=== PATIENT | male | born 1970 | race African-American/Black ===

== ENCOUNTER 2016-10-08 15:49 | Observation (INO) | payer MEDICARE, OTHER ==
--- NOTE | ~2016-10-08 | DS ---
Discharge Summary [facility] [address] [place]. [address] NAME: MARLENE ZAMORA : 74 STATUS : DIS Nathanael PAT#: [id number] AGE: 45 ADM/REG DATE : 10/08/16 MR#: [id number] REPORT SERV DATE: 10/10/16 DICTATED BY: DATE: REPORT STATUS : Draft TRANSCRIBED BY: MODL DATE: 10/09/16 ADMISSION DATE: 10/08/2016 DISCHARGE DATE: 10/09/2016 DISCHARGE DIAGNOSES: 1. Bleeding from needle site, nearest to elbow, dialysis during access appears to be resolved. 2. End-stage renal disease, hemodialysis Thursday, Thursday, Thursday. 3. Anemia. 4. Hypertension. 5. Obstructive sleep apnea. 6. Cardiomyopathy. CONSULT DURING INPATIENT EVALUATION: None. PROCEDURES PERFORMED: Hemodialysis this morning on 10/09/2016 for a 3-hour treatment via a 2K bath. DISCHARGE MEDICATIONS FOLLOWS: ASA 81 mg daily, calcium carbonate 2000 mg p.o. at bedtime. No other medications are listed. CONDITION AT DISCHARGE: Stable. DISPOSITION: Patient will be discharged and returned home with instructions to return to his usual hemodialysis treatment tomorrow morning at his usual clinic and time. Medications will be continued as listed above. HOSPITAL COURSE: This is a 45-year-old, male patient, who dialyzes on a Thursday, Thursday, Thursday schedule who was apparently at dialysis yesterday and experienced some bleeding during treatment rather from his access area with the needle closest to his elbow. According to reports from the patient, he was dialyzed for short amount of time and reported here for evaluation at [facility]. He was evaluated visually and declined after he was noted to be stable to exit, and preferred to stay overnight for monitoring. He has stayed over the last 12 hours and has had no further bleeding, complaints of no other comorbid symptomatology and shows no evidence of bleeding or acute blood loss with a stable hemoglobin this morning. He is agreeable through discussion this morning to dialyze for 3 hours and then be discharged home. Instructions will be to continue his previous home medications as written above and to return to his hemodialysis unit tomorrow for further monitoring. Caveat to this discharge would include that he remains stable during the duration of his dialysis treatment, which is now being initiated. GOLDIE [facility] Discharge Summary [place] [id number] [address] NAME: MARLENE ZAMORA : 74 STATUS : DIS Nathanael PAT#: [id number] AGE: 45 ADM/REG DATE : 10/08/16 MR#: [id number] REPORT SERV DATE: 10/10/16 DICTATED BY: DATE: REPORT STATUS : Draft TRANSCRIBED BY: MODL DATE: 10/09/16 SUSHMA Alcantara / [id number] CC: Mani Zhang M.D.
--- NOTE | ~2016-10-08 | CN ---
Consultation Report [facility] [address] [place]. [address] NAME: MARLENE ZAMORA : 74 STATUS : DIS Nathanael PAT#: [id number] AGE: 45 ADM/REG DATE : 10/08/16 MR#: [id number] REPORT SERV DATE: 10/12/16 DICTATED BY: JOHN PAUL MENDOZA DATE: 10/12/16 REPORT STATUS : Draft TRANSCRIBED BY: MODL DATE: 10/12/16 CONSULT DATE OF CONSULTATION: 10/12/2016 CHIEF COMPLAINT: He originally came to the hospital for shortness of breath and left knee pain. HISTORY OF PRESENT ILLNESS: Chronic dialysis with trouble from his AV fistula, admitted to the ICU for shortness of breath, and knee pain. I was subsequently consulted for evaluation and possible aspiration to identify because of his knee pain. PAST MEDICAL HISTORY: End-stage renal disease, hypertension, obstructive sleep apnea, hypothyroidism, AV fistula with revision to the left upper extremity, chronic left bundle branch block, cardiomyopathy, left heart catheterization in 2016, anemia of chronic disease, hypocalcemia, hyperparathyroidism, status post parathyroidectomy, and GERD. ALLERGIES: HYDROCHLOROTHIAZIDE, LISINOPRIL, ATIVAN, AND DILAUDID. HOME MEDICATIONS: Aspirin, Tums, metoprolol, diltiazem, and thyroid replacement. PAST SURGICAL HISTORY: Includes the above with his AV fistula and his parathyroidectomy. PHYSICAL EXAMINATION: GENERAL: As I see him in his ICU bed that too at approximately 11 o'clock on Thursday07/12/2017, he is AAO x3. Pleasant and cooperative with exam. Complaining of left knee pain. HEENT: [place] sclerae. Equal pupils. Facial symmetry. LUNGS: Diminished breath sounds. HEART: Tachycardic. Irregularly irregular. ABDOMEN: Tympanic, nontender. EXTREMITIES: Chronic venous stasis with 1+ pitting edema bilateral lower extremity to the level of the proximal calf. Positive effusion with ballotable patella on the left knee. Painful range of motion from 20 to 60 degrees on the left side. Normal range of motion from 0 to 100 on the right side. No pain or laxity to varus valgus stress about the knee. No crepitus. Weakly palpable distal pulses. Bilateral upper extremities showed AV fistula but otherwise no skin breaks. Good active and passive range of motion. IMAGING: Radiographs reveal no fractures. ASSESSMENT: This is a 45-year-old with concern of septic left knee. Therefore we will perform an aspiration. Risks and benefits were discussed at length with the patient. He verbalized understanding and agrees. Consultation Report [place] [id number] [place]. [address] NAME: MARLENE ZAMORA : 74 STATUS : DIS Nathanael PAT#: [id number] AGE: 45 ADM/REG DATE : 10/08/16 MR#: [id number] REPORT SERV DATE: 10/12/16 DICTATED BY: JOHN PAUL MENDOZA DATE: 10/12/16 REPORT STATUS : Draft TRANSCRIBED BY: MODAnt DATE: 10/12/16 JUAN/MONA John Paul Mendoza M.D. / [id number] CC: Mani Zhang M.D.
--- NOTE | ~2016-10-08 | HP ---
History And Physical [place] [id number] [facility] [place]. [address] NAME: MARLENE CLAY : 74 STATUS : DIS Nathanael PAT#: [id number] AGE: 45 ADM/REG DATE : 10/08/16 MR#: [id number] REPORT SERV DATE: 10/11/16 DICTATED BY: JOYCE LAMBERT JR DATE: 10/11/16 REPORT STATUS : Draft TRANSCRIBED BY: MONA DATE: 10/11/16 DATE OF ADMISSION: 10/08/2016 CHIEF COMPLAINT: Shortness of breath and knee pain. HISTORY: Mr. Clay was dismissed from this facility on after having difficulty with bleeding from his AV fistula. He went to his usual dialysis session yesterday and apparently had an uneventful dialysis session, terminating about 4 o'clock in the afternoon. About 9 p.m. yesterday, he developed abrupt onset of shortness of breath which he dealt with over the evening hours. He has bilateral knee arthropathy with severe pain, the pain and the dyspnea were persistent this morning, so he came to the emergency room. 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 Jennings. In the emergency department, he has been treated initially with some amiodarone, subsequently with a diltiazem drip, his heart rate is currently in the 120s and he measures with a systolic hypotension. He has edema of the lower extremities. He has abnormal chest x-ray with bilateral fluffy looking infiltrates. He has no fever or leukocytosis. He has been seen by Dr. Wang, who is concerned that he needs to be evaluated for pulmonary embolism. He will shortly be taken for CTA, and then we will attempt dialysis thereafter for removal of "dye" and to see if we can achieve any ultrafiltration and improve his pulmonary performance. PAST MEDICAL HISTORY: 1. ESRD. 2. Hypertension. 3. Obstructive sleep apnea. 4. Hypothyroidism. 5. AV fistula with revisions left upper extremity. 6. Chronic left bundle-branch block. 7. Cardiomyopathy, not otherwise specified. 8. Left heart catheterization in July 2016. 9. Anemia of chronic kidney disease. 10.Hypocalcemia. 11.History of hyperparathyroidism, status post parathyroidectomy, not otherwise specified. 12.Peptic ulcer disease. ALLERGIES: STATED TO HYDROCHLOROTHIAZIDE, LISINOPRIL, ATIVAN, DILAUDID. STATED TO BEE STINGS AND RESENDEZ FISH. HOME MEDICATIONS: Identified as aspirin, Tums, metoprolol, diltiazem, and thyroid replacement. REVIEW OF SYSTEMS: History And Physical [address] [address] NAME: MARLENE CLAY : 74 STATUS : DIS Nathanael PAT#: [id number] AGE: 45 ADM/REG DATE : 10/08/16 MR#: [id number] REPORT SERV DATE: 10/11/16 DICTATED BY: JOYCE LAMBERT JR DATE: 10/11/16 REPORT STATUS : Draft TRANSCRIBED BY: MONA DATE: 10/11/16 Acknowledges shortness of breath, subjective palpitations, bilateral knee arthropathic pain, but otherwise no reported head, neck, other cardiac, GI, , musculoskeletal, neurological, or integumentary complaints. Knee pain is chronic with acute exacerbation. PHYSICAL EXAMINATION: GENERAL: Obese, awake, alert, male, who appears dyspneic. HEENT: Cranium is normocephalic. [place] sclerae. Equal pupils. No nasal discharge. Facial symmetry. No JVD. No carotid bruit. Trachea midline. LUNGS: Diminished breath sounds. Increased right basilar adventitial sounds. No accessory muscle use. HEART: Irregularly irregular and tachycardic, without audible rub, murmur, or gallop. PMI not palpably displaced. ABDOMEN: Tympanitic, nontender. EXTREMITIES: Chronic venous stasis with edema 1+, bilaterally enlarged knees, ? effusion. Tender to palpation. NEUROLOGICAL: Cognition and speech are normal. Memory is sluggishly impaired. Gait is not tested. Strength not observed. Sodium today is 132, potassium 4.6, chloride 96, CO2 23, BUN 47, creatinine 9.7, calcium 7.7. Magnesium 1.7. Phosphorus 5.0 two days ago. WBC is 7000; hemoglobin is 12, comparable to prior values; platelets 91,000, comparable to values dating back to July 2016. Chest x-ray, somewhat enlarged cardiac silhouette, bilateral symmetrical interstitial infiltrates. ASSESSMENT: 1. Atrial fibrillation, as reported, with rapid response, initial heart rate slowed to current values of about 120. 2. Associated hypotension. 3. Associated dyspnea. 4. Knee pain. 5. End-stage renal disease. PLAN: 1. Cardiology consult. Rate control. Evaluate for CTA for pulmonary embolus. 2. Dialysis with ultrafiltration. DF/MODL Joyce Lambert Jr, M.D. / [id number] CC: Mani Zhang M.D.
--- NOTE | ~2016-10-08 | HP ---
History And Physical [place] [id number] [facility] [place]. [address] NAME: MARLENE ZAMORA : 74 STATUS : ADM Nathanael PAT#: [id number] AGE: 45 ADM/REG DATE : 10/08/16 MR#: [id number] REPORT SERV DATE: 10/09/16 DICTATED BY: MANI ZHANG DATE: 10/08/16 REPORT STATUS : Draft TRANSCRIBED BY: MODAnt DATE: 10/08/16 DATE OF ADMISSION: 10/08/2016 CHIEF COMPLAINT: Bleeding from left upper AV shunt. HISTORY OF PRESENT ILLNESS: The patient is a 45-year-old male with significant past medical history of ESRD, hypertension, CLIFF, hypothyroidism, presents from his hemodialysis status post bleeding from his left upper AV graft within one hour of hemodialysis. The patient states that he bled from the needle placed lower closer to his elbow. He denies any prior events of bleeding. He is not having any bright red blood per rectum or epistaxis. He is on aspirin, but no other medications such as Plavix or Coumadin. PAST MEDICAL HISTORY/PAST SURGICAL HISTORY: 1. End-stage renal disease, [address], secondary to FSGS. 2. Left upper AV fistula with revision by Dr. Hewitt. 3. Hypertension. 4. Left bundle branch block. 5. Cardiomyopathy. 6. CLIFF. 7. Left heart catheterization in 07/2016. 8. Anemia. 9. Hypothyroidism. 10.Hypocalcemia status post parathyroidectomy. 11.Peptic ulcer disease. SOCIAL HISTORY: No recreational drugs or alcohol at this time. FAMILY MEDICAL HISTORY: No known kidney disease. ALLERGIES: ALLERGIES INCLUDE HYDROCHLOROTHIAZIDE, LISINOPRIL, ATIVAN, AND DILAUDID. HE ALSO HAS ALLERGIES TO BEE STINGS AND RESENDEZ FISH. HOME MEDICATIONS: 1. Aspirin 81 mg daily. 2. Tums 1000 mg p.o. p.r.n. before meals. 3. Tums 2000 mg p.o. q.h.s. 4. Metoprolol 25 mg daily p.r.n. for diastolic blood pressure greater than 100. REVIEW OF SYSTEMS: Complete review of systems negative, otherwise stated in HPI. PHYSICAL EXAMINATION: VITAL SIGNS: Temperature is 97.0, pulse is 98, blood pressure is 154/87, pulse is 105. GENERAL: He is in no apparent distress. Sitting up, watching TV. NEURO: He is alert and oriented x3. Moves all four extremities. PSYCH: Appropriate mood and affect. History And Physical [address] [address] NAME: MARLENE ZAMORA : 74 STATUS : ADM Nathanael PAT#: [id number] AGE: 45 ADM/REG DATE : 10/08/16 MR#: [id number] REPORT SERV DATE: 10/09/16 DICTATED BY: MANI ZHANG DATE: 10/08/16 REPORT STATUS : Draft TRANSCRIBED BY: MONA DATE: 10/08/16 HEENT: Normocephalic. No scleral icterus. NECK: No JVD. Trachea midline. CARDIOVASCULAR: Regular rate and rhythm. No gallops, rubs, or murmurs. RESPIRATORY: Clear to auscultation bilaterally without increased respiratory rate. ABDOMEN: Soft, nontender, and nondistended. Positive bowel sounds. EXTREMITIES: No peripheral edema. ACCESS: Left upper AV shunt/graft. Good thrill and bruit over the medial left upper arm. No pseudoaneurysm or signs of infection appreciated. No active bleeding. No significant swelling. LABORATORY DATA: Sodium is 138, potassium is 4.2, chloride is 97, bicarb is 26, BUN is 55, creatinine is 10.6, glucose is 87, and calcium is 7.8. White blood cell count is 3.8, hemoglobin is 12.3, and platelets of 121. ASSESSMENT: 1. Bleeding from left upper AV fistula one hour into hemodialysis. The patient does take a daily aspirin. 2. Obstructive sleep apnea. 3. Hypertension. 4. End stage renal disease with past work on his access by Dr. Hewitt. PLAN: 1. Home and p.r.n. medications. We will monitor access for recurrent bleeding. 2. He will dialyze first thing in the morning. If no further issues he will be discharged after hemodialysis; otherwise, Dr. Hewitt will be consulted for further evaluation such as fistulogram and evaluation of his access. SGG/MODL Mani Zhang M.D. / [id number] CC: Mani Zhang M.D.
[2016-10-08 15:44] LABS: BASOPHILS 0.6 %; BASOPHILS ABSOLUTE 0.02 10/3/uL (0.0-0.16); EOSINOPHILS 4.2 %; EOSINOPHILS ABSOLUTE 0.15 10/3/uL (0.0-0.53); ER CBC TAT 0 Hrs 08 Mins; HEMATOCRIT 40.8 % (40.0-51.0); HEMOGLOBIN 12.3 g/dL (13.6-17.8); IMMATURE GRANULOCYTES 0.3 %; IMMATURE GRANULOCYTES ABSOLUTE 0.01 10/3/uL (0.0-0.11); LYMPHOCYTES 23.3 %; LYMPHOCYTES ABSOLUTE 0.84 10/3/uL (0.67-4.30); MEAN CORPUS HGB CONC 30.1 g/dL (32.0-36.0); MEAN CORPUSCULAR HEMOGLOB 26.3 pg (26.0-34.0); MEAN CORPUSCULAR VOLUME 87.2 fL (80-100); MONOCYTES 28.5 %; MONOCYTES ABSOLUTE 1.03 10/3/uL (0.21-1.20); NEUTROPHILS 43.1 %; NEUTROPHILS ABSOLUTE 1.56 10/3/uL (2.02-8.40); RBC DISTRIBUTION WIDTH 17.4 % (12.0-16.0); RED CELL COUNT 4.68 10/6/uL (4.7-6.1); WHITE BLOOD CELLS 3.6 10/3/uL (4.5-10.5)
[2016-10-08 15:47] LABS: MANUAL DIFF NO %; PLATELET COUNT 121 10/3/uL (150-400)
[~2016-10-08 15:49] MED LIST: *DENIES; *UNABLE1; ALBUTEROL5 INH; AMB5 PO; ASAB PO; ASAEC PO; CAT1 PO; CAT2 PO; CEFT2 PO; CIP5 PO; CLONIDINE; CLONIDINE PO; COREG25 PO; COREG3 PO; COREG6 PO; COZ25 PO; COZ50 PO; D.O.S.100 MG PO; DSS PO; FOSRENOL1000 MG PO; HALF81 PO; HEPARIN INJ5000 U/ML SC; IMDUR30 PO; L80 PO; LEVOTHYROXIN25 MCG PO; LIPITOR40 PO; LISINOPRIL; LISINOPRIL PO; LISINOPRIL40 MG PO; LOP100 PO; LOP25 PO; LYRICA75 PO; MIRALAXPKT PO; MOMUD PO; NASAL SPRAY OTC NAS; NORCO1 TA1 PO; NORCO1 TAB PO; NORV5 PO; NOVOLOG SC; OCEAN NAS; OXYIR5 MG PO; P20 PO; PCET PO; PERCOCET1 TA2 PO; PERCOCET1 TA4 PO; PHOSLO PO; PLAVIX PO; PROAIR HFA INH; PROAIR HFA PO; PROTONIX PO; RENA-VITE PO; RENAGEL800 PO; ROCALTROL 0.0.25 MCG PO; ROCALTROL0.5 MCG PO; SENSIPAR60 MG PO; SILVADENE1 % TOP; SYN.025B PO; T PO; TAPAZOLE10 MG PO; TAPAZOLE5 MG PO; TUMSROLL PO; TYLENOL 8 HR650 MG PO; ULTRAM50 PO; ZOFRAN4 PO; [UNRECOGNIZED DRUG - OTHER]
[2016-10-08 15:59] LABS: A/G RATIO 0.7 (0.7-1.9); ALBUMIN 3.4 G/DL (3.5-5.0); ALKALINE PHOSPHATASE 169 U/L (45-117); BUN (BLOOD UREA NITROGEN) 55 MG/DL (6-23); CALCIUM, SERUM 7.8 MG/DL (8.5-10.4); CHLORIDE, SERUM 97 MMOL/L (96-112); CO2 (CARBON DIOXIDE) 26 MMOL/L (24-34); GFR AFRICAN AMERICAN 6 ML/MIN (>=60); GFR NON AFRICAN AMERICAN 5 ML/MIN (>=60); GLOBULIN 5.2 G/DL (2.5-4.1); GLUCOSE, SERUM 87 MG/DL (60-99); POTASSIUM, SERUM 4.2 MMOL/L (3.5-5.3); SGOT(AST) 35 U/L (5-40); SGPT(ALT) 29 U/L (5-65); SODIUM, SERUM 138 MMOL/L (135-148); TOTAL BILIRUBIN 0.6 MG/DL (0-1.2); TOTAL PROTEIN 8.6 G/DL (6.0-8.5)
[2016-10-08 16:02] LABS: BE (BASE EXCESS) -2.9 MEQ/L (0 +/- 2.5); CARBOXYHEMOGLOBIN 2.3 % (0-3); HCO3 (ACTUAL BICARBONATE) 23.6 MEQ/L (23-27); HEMOBLOGIN CONTENT 12.6 G/DL (14-18); INSTRUMENT SERIAL # 8087; METHEMOGLOBIN 0.1 % (0-3); O2 CONTENT 16.4 VOL% (18-24); OPERATOR ID 14335; PCO2 (CO2 TENSION) 48 MMHG (35-45); PO2 (O2 TENSION) 80 MMHG (79-93); SAMPLE Arterial; pH 7.31 (7.37-7.43)
[2016-10-08 16:03] LABS: ALLENS TEST Pos
[2016-10-08 16:47] LABS: ANISOCYTOSIS 1+ (5-10/OIF) (0-5/OIF); BAND NEUTROPHILS 1 %; BASOPHILS 2 %; BASOPHILS ABSOLUTE (CALC) 0.07 10/3/uL (0.0-0.16); EOSINOPHILS 4 %; EOSINOPHILS ABSOLUTE (CALC) 0.14 10/3/uL (0.0-0.53); ER DIFF TAT 1 Hrs 11 Mins; LYMPHOCYTES 37 %; LYMPHOCYTES ABSOLUTE (CALC) 1.33 10/3/uL (0.67-4.30); MONOCYTES 10 %; MONOCYTES ABSOLUTE (CALC) 0.36 10/3/uL (0.21-1.20); NEUTROPHILS ABSOLUTE (CALC) 1.69 10/3/uL (2.02-8.40); SEGMENTED NEUTROPHIL (0) 46 %; TOTAL NUCLEATED CELLS 100
[2016-10-08 16:48] LABS: PLATELET ESTIMATE SLT DEC (ADEQUATE)
[2016-10-08] MEDS ORDERED: ASAB PO (17:51)
[2016-10-08] MEDS ORDERED: TUMSROLL PO (17:52)
[2016-10-09 04:31] LABS: ALBUMIN 3.3 G/DL (3.5-5.0); BUN (BLOOD UREA NITROGEN) 63 MG/DL (6-23); CALCIUM, SERUM 7.4 MG/DL (8.5-10.4); CHLORIDE, SERUM 98 MMOL/L (96-112); CO2 (CARBON DIOXIDE) 24 MMOL/L (24-34); GFR AFRICAN AMERICAN 5 ML/MIN (>=60); GFR NON AFRICAN AMERICAN 5 ML/MIN (>=60); GLUCOSE, SERUM 99 MG/DL (60-99); POTASSIUM, SERUM 5.1 MMOL/L (3.5-5.3); SODIUM, SERUM 137 MMOL/L (135-148)
[2016-10-09 04:35] LABS: BASOPHILS 0.3 %; BASOPHILS ABSOLUTE 0.01 10/3/uL (0.0-0.16); EOSINOPHILS 4.4 %; EOSINOPHILS ABSOLUTE 0.15 10/3/uL (0.0-0.53); HEMATOCRIT 37.4 % (40.0-51.0); HEMOGLOBIN 11.3 g/dL (13.6-17.8); MEAN CORPUS HGB CONC 30.2 g/dL (32.0-36.0); MEAN CORPUSCULAR HEMOGLOB 26.3 pg (26.0-34.0); MONOCYTES 15.2 %; MONOCYTES ABSOLUTE 0.52 10/3/uL (0.21-1.20); NEUTROPHILS 45.1 %; NEUTROPHILS ABSOLUTE 1.55 10/3/uL (2.02-8.40); PLATELET COUNT 89 10/3/uL (150-400); RBC DISTRIBUTION WIDTH 17.5 % (12.0-16.0); WHITE BLOOD CELLS 3.4 10/3/uL (4.5-10.5)
[2016-10-09 04:39] LABS: MANUAL DIFF NO %
[2016-10-09 04:43] LABS: INTERNATIONAL NORMAL RATI 1.2 UNITS (-); PARTIAL THROMBO TIME 37.7 SEC (22.5-37.2); PROTIME (NOT ORD) 15.3 SEC (12.0-14.5)
[2016-10-09 05:02] LABS: ANISOCYTOSIS 1+ (5-10/OIF) (0-5/OIF); PLATELET ESTIMATE DEC (ADEQUATE)
[2016-10-09 05:03] LABS: SCHISTOCYTES OCC (0-2/OIF); TEARDROP SHAPED RBCS OCC (0-2/OIF)
[2017-02-02] MEDS ORDERED: PACERONE200 MG PO (21:50)
[2017-02-02] MEDS ORDERED: COREG12 PO (21:50)
[2017-02-02] MEDS ORDERED: PERCOCET 10/3251 TAB PO (21:52)
[2017-02-02] MEDS ORDERED: TUMSROLL PO (21:52)
[2017-02-04] MEDS ORDERED: LIPITOR40 PO (17:17)
[2017-02-04] MEDS ORDERED: ASA5GR PO (17:17)
[2017-02-04] MEDS ORDERED: PEP20 PO (17:17)
[2017-02-04] MEDS ORDERED: VENTOLIN HFA INH (17:20)
[2017-03-22] MEDS ORDERED: PROAIR HFA INH (18:04)
[2017-05-10] MEDS ORDERED: ASA5GR PO (11:37)
[2017-05-10] MEDS ORDERED: COREG3 PO (11:37)
[2017-05-10] MEDS ORDERED: TUMSROLL PO (11:37)
== END 2016-10-09 13:19 | disposition home or self-care (01) ==
LOC: ER 15:49 → CDU1 17:55 → CDU2 19:01
PROVIDERS: Internal Medicine Nephrology; Nurse Practitioner
DX: I12.0 Hypertensive chronic kidney disease with stage 5 chronic kidney disease or end stage renal disease (principal); N18.6 End stage renal disease; I48.91 Unspecified atrial fibrillation; D63.1 Anemia in chronic kidney disease; G47.33 Obstructive sleep apnea (adult) (pediatric); I44.7 Left bundle-branch block, unspecified; E83.51 Hypocalcemia; I95.9 Hypotension, unspecified; I25.2 Old myocardial infarction; E78.00 Pure hypercholesterolemia, unspecified; I25.10 Atherosclerotic heart disease of native coronary artery without angina pectoris; F32.9 Major depressive disorder, single episode, unspecified; E03.9 Hypothyroidism, unspecified; Z79.899 Other long term (current) drug therapy; Z88.8 Allergy status to other drugs, medicaments and biological substances; Z79.82 Long term (current) use of aspirin; Z98.890 Other specified postprocedural states; Z86.73 Personal history of transient ischemic attack (TIA), and cerebral infarction without residual deficits
CPT/HCPCS: 36600; 71010; 80053; 80069; 82805; 85025; 85610; 85730; 93005; 94640; 99285; A9270-GY; G0257; G0378

== ENCOUNTER 2016-10-11 10:47 | Inpatient (IN) | payer MEDICARE, OTHER ==
--- NOTE | ~2016-10-11 | OP ---
Record Of Operation [facility] [address] [place]. [address] NAME: MARLENE ZAMORA : 74 STATUS : ADM IN PAT#: [id number] AGE: 46 ADM/REG DATE : 10/11/16 MR#: [id number] REPORT SERV DATE: 10/31/16 DICTATED BY: ADRIANO MENDOZA JR. DATE: 10/31/16 REPORT STATUS : Draft TRANSCRIBED BY: MONA DATE: 10/31/16 DATE OF PROCEDURE: 10/31/2016 PREOPERATIVE DIAGNOSIS: End-stage renal disease. POSTOPERATIVE DIAGNOSIS: End-stage renal disease. OPERATION: Right internal jugular vein PermCath catheter. SURGEON: Adriano Mendoza M.D. HISTORY: This is a 46-year-old, white male, who has been hospitalized for three weeks. He came in with staph sepsis. 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 He had a Vas-Cath placed for dialysis at that time. It is felt that he is going to be on permanent dialysis and needs to have a PermCath placed. PROCEDURE IN DETAIL: The patient was placed on the operating room table. He underwent a general anesthetic. The right neck area was prepped and draped in usual sterile manner. SonoSite machine was used to find the right internal jugular vein. A wire was then placed down to the right side of the heart. This was confirmed with fluoro. A PermCath catheter was brought through a stab wound below the right clavicle, up into the neck incision, down into the Tear-Away introducer. The fluoro machine was then turned on to verify no kinking with good position. The catheter was irrigated with heparinized saline and sutured into place. The patient tolerated the procedure well and taken back to recovery room in fair condition. There were no intraoperative complications. ESTIMATED BLOOD LOSS: Negligible. DF/MODAnt Adriano Mendoza Jr., M.D. / [id number] CC: Colt Moore Jr., M.D.
--- NOTE | ~2016-10-11 | OP ---
Record Of Operation [facility] [address] [place]. [address] NAME: MARLENE ZAMORA : 74 STATUS : ADM IN [facility]#: [id number] AGE: 45 ADM/REG DATE : 10/11/16 MR#: [id number] REPORT SERV DATE: 10/21/16 DICTATED BY: ADRIANO MENDOZA JR. 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 OPERATION: Removal of VAC sponge, secondary closure. SURGEON: Adriano Mendoza M.D. HISTORY: This is a 45-year-old black male, who had an operation two nights ago. At which time, a graft in his left arm was ligated due to excessive bleeding because of a viola rupture of an infected false aneurysm. The wound was VAC'd at that time. He was brought back today for VAC removal and closure. PROCEDURE: The patient was placed on the operating room table. The left arm was prepped and draped in a sterile manner as possible. The VAC sponge was carefully removed. Focal bleeders were cauterized. There was really nothing to debride. The wound was irrigated. The wound was then closed loosely using individual 3-0 nylon sutures. The patient tolerated procedure well and taken back to recovery room in fair condition. There were no intraoperative complications. Estimated blood loss was negligible. DF/MONA Adriano Mendoza Jr., M.D. / [id number] CC: Colt Lawson Jr, Tanja A.
--- NOTE | ~2016-10-11 | DS ---
Discharge Summary [facility] [address] [place]. [address] NAME: MARLENE ZAMORA : 74 STATUS : DIS IN PAT#: [id number] AGE: 46 ADM/REG DATE : 10/11/16 MR#: [id number] REPORT SERV DATE: 11/19/16 DICTATED BY: RODDY GARAY DATE: 11/18/16 REPORT STATUS : Draft TRANSCRIBED BY: MONA DATE: 11/18/16 Data Collection from hospitalization DISCHARGE DIAGNOSES: 1. End-stage renal disease. 2. Methicillin-resistant Staphylococcus aureus sepsis. 3. Obstructive sleep apnea. 4. Nonischemic cardiomyopathy. 5. Anemia, ruptured abscess status post ligation/pseudoaneurysm fistula. 6. Hypertension. 7. Hypothyroidism. 8. Hypocalcemia. 9. History of hyperparathyroidism. 10.Peptic ulcer disease. CONSULTATIONS: 1. Rigoberto Wang M.D., [facility]. 2. Lex Regalado M.D. 3. Elizabeth Mcnulty M.D. 4. Med Pierce M.D. 5. Adriano Mendoza M.D. 6. Med Caballero M.D. PROCEDURES: 1. Aspiration of left knee under sterile conditions, 10/12/2016. 2. Left knee arthroscopic debridement and irrigation. We also performed a partial medial meniscectomy and a chondroplasty of the medial tibial articular surface, 10/13/2016. 3. Insertion of left subclavian vein Vas-Cath catheter, ligation of left upper extremity access graft, radical debridement of wound and placement of VAC (20 x 20 cm wound), 10/19/2016. 4. Removal of VAC sponge secondary closure, 10/21/2016. 5. Right internal jugular vein PermCath placement, 10/31/2016. 6. CTA of the chest, 10/11/2016. 7. MRI of the lumbar spine without contrast, 10/20/2016. 8. MRI of the right lower extremity without contrast, 10/21/2016. MEDICATIONS: 1. Aspirin 81 mg daily. 2. Calcium carbonate 1000 mg with meals and 2000 mg at bedtime. 3. Colchicine 0.6 mg three times a day. 4. Ferrous sulfate 300 mg with breakfast. 5. Synthroid 50 mcg before breakfast. 6. Melatonin 3 mg at bedtime. 7. Seroquel 25 mg daily and 50 mg at bedtime. 8. Vancomycin as instructed. 9. ProAmatine 10 mg at 9:00 a.m., 1:00 p.m., and 6:00 p.m. 10.Vancomycin as instructed. 11.Proventil 3 mL via inhaler every 4 hours while awake. Discharge Summary [facility] [id number] [place]. [address] NAME: MARLENE ZAMORA : 74 STATUS : DIS IN PAT#: [id number] AGE: 46 ADM/REG DATE : 10/11/16 MR#: [id number] REPORT SERV DATE: 11/19/16 DICTATED BY: RODDY GARAY DATE: 11/18/16 REPORT STATUS : Draft TRANSCRIBED BY: MONA DATE: 11/18/16 CONDITION AT DISCHARGE: Stable. DISPOSITION: The patient was discharged to [facility] on a renal diet with activities as instructed. HOSPITAL COURSE: This is a 46-year-old man who has been discharged from this facility on prior to admission after having difficulty with bleeding from his AV fistula. He was in his usual dialysis session on the day prior to this admission, apparently had an uneventful dialysis session. This terminated about 4 o'clock in the afternoon. Around 9 p.m. he developed the abrupt onset of shortness of breath which he dealt with over the evening hours. He had bilateral knee arthropathy with severe pain. The pain and dyspnea were persistent on the morning of admission and he came to the emergency room. In the emergency department, he was identified to be in apparent atrial fibrillation with rapid response and he had some mild troponin elevation that was higher than baseline, but not as high as most severe values recently measured in July when he was taken to the cardiac matlab developer by Dr. Rigoberto Jennings. In the emergency department, he was treated initially with some amiodarone and subsequently with a diltiazem drip. His heart rate was currently in the 120 and he measured with a systolic hypotension. He had edema of the lower extremities. He had an abnormal chest x-ray with bilateral fluffy looking infiltrate. He had no fever or leukocytosis. He had been seen by Dr. Wang who was concerned that he would need to be evaluated for pulmonary embolism. He was admitted to the hospital at this time for further evaluation and treatment. Upon admission, he was going to be taken for a CTA and we would then attempt dialysis thereafter for removal of "dye" and to see if we could achieve any ultrafiltration and improve his pulmonary performance. He was seen in consultation by Dr. Rigoberto Wang. A CTA of the chest was performed. He had been catheterized in July 2016, his coronaries had shown no significant disease and his ejection fraction was 40% to 45%. He most recently had been admitted here earlier in the week with bleeding from the AV fistula. He had re- presented at this time complaining of lower extremity pain and shortness of breath. He reports that he had some vague chest pain earlier in the day, but none at this time. Troponin was minimally elevated at 0.67. EKG showed a heart rate of approximately 140 with left bundle-branch block, it was regular and likely a sinus tachycardia or possibly atrial flutter. It was suspected that the patient's heart rate was reactive and appropriate, but we would try to slow him down with some digoxin and Cardizem. A CTA of the chest was performed. The following day, his white count was 12. He was seen by Dr. Lex Regalado regarding treatment of fever and possible knee infection. He did spike a fever after arrival over 103. Blood cultures have been obtained and he was started empirically on vancomycin and Zosyn. The patient had developed a new fever and at the same time had the onset of severe pain in the left knee. There was some concern about septic arthritis. It could also be something like gout or pseudogout, but we would have to assume infection at this point, particularly with recent hospitalization and potential procedures that he could have gotten bacteremia from. He had exquisite pain with any movement of the knee. Vancomycin and Zosyn were continued. An Orthopedic evaluation was requested. He was seen by Dr. Med Caballero. He had been asked to evaluate the patient's left knee for septic arthritis. His exam was consistent with septic arthritis versus hematoma. It was felt that Discharge Summary [address] [place]. [address] NAME: MARLENE ZAMORA : 74 STATUS : DIS IN PAT#: [id number] AGE: 46 ADM/REG DATE : 10/11/16 MR#: [id number] REPORT SERV DATE: 11/19/16 DICTATED BY: RODDY GARAY DATE: 11/18/16 REPORT STATUS : Draft TRANSCRIBED BY: MODL DATE: 11/18/16 he should undergo an aspiration and the patient agreed to proceed. He performed aspiration of the left knee under sterile conditions, approximately 20 mL of gross pus mixed with blood was aspirated from the left knee. A PICC line was inserted. He continued to complain of knee pain. He was seen in consultation by Dr. Elizabeth Mcnulty. At this point, the presumptive diagnosis was that the patient had sepsis secondary to septic left knee. He had been started on broad-spectrum antibiotics and a PICC line had been placed in case he required vasopressor for hemodynamic support. She had been asked to evaluate the patient to assist with management of his sepsis. Lactate level was 1.6. C. difficile was negative[place] [address]. He has normochromic anemia with a hemoglobin of 12.1 and hematocrit of 41.7. White blood cell count was 12. Influenza screen was negative. Uric acid level was 4.8. Chest x-ray showed diffuse bilateral pulmonary vascular congestion consistent with mild volume overload. The x-ray showed no bony abnormality other than osteopenia. There was no fracture and some calcification of the artery is about the joint. EKG revealed sinus tachycardia without specific tissue and without sinus tachycardia without significant ST elevation and depression when compared to previous film. Previous EKG from the emergency room showed atrial fibrillation with rapid ventricular response. The patient was felt to have sepsis with shock secondary to septic left knee based on cell count of aspirated body fluid. Gram stain was pending. Suspected that his pulmonary issues were related to mild volume overload and he would benefit from some ultrafiltration for volume removal. Thrombocytopenia was presumably secondary to sepsis which was evolving. We would titrate Levophed on an as-needed basis. Maintain MAT greater than 65. We would hold off on placing an arterial line at this time as he is on a minimal amount of Levophed, and we were giving adequate noninvasive blood pressure measurements, but we could consider invasive hemodynamic monitoring on an as-needed basis. From a respiratory standpoint it was favored to titrate Vapotherm versus BiPAP as he did have some nausea and vomiting on the morning of this admission, and this can precipitate large volume aspiration. His mental status was adequate at this point, but if he were to become more encephalopathic or develop inability to protect his airway we would proceed with endotracheal intubation and mechanical ventilation. We would hold his oral antihypertensives until his blood pressure was more stable. The patient refused arterial line placement, he only wanted us to use the cuff. It was difficult to obtain his blood pressure on Levophed. We made multiple attempts to explain the need for arterial line, but the patient still refused. On 10/13/2016, he was awake and alert. Potassium level was 6.3. He was mildly encephalopathic. Zosyn was stopped. Vancomycin was continued. The patient required intubation. He had scattered rhonchi in his lungs. He had acute respiratory failure. The following day, he was sedated on the ventilator. He remained on pressors. Culture results were reviewed. His blood cultures revealed MRSA. Knee cultures revealed MRSA. Dialysis therapy continued. We would consider daily ventilator weaning trials. Creatinine level was 12.8. Reglan was being provided. The patient does have MRSA sepsis. Cardiovascular status was stable. He was extubated. Precedex and Levophed were being weaned. On 10/16/2016, he was awake and alert. His vital signs were improving. He said he was feeling better. His incisions were clean, dry, and intact. White count was 8.8. On 10/17/2016, he was depressed. He was in no acute distress. He was evaluated by Physical Therapy. Dialysis therapy continued. His T-max was 99.3. On , he was up sitting in a chair. He was still on Pressors, these were being weaned. Vancomycin was continued. He described his right thigh as burning. On the , there was concern about the left AV fistula area with Discharge Summary [address] [place]. [address] NAME: MARLENE ZAMORA : 74 STATUS : DIS IN PAT#: [id number] AGE: 46 ADM/REG DATE : 10/11/16 MR#: [id number] REPORT SERV DATE: 11/19/16 DICTATED BY: RODDY GARAY DATE: 11/18/16 REPORT STATUS : Draft TRANSCRIBED BY: MONA DATE: 11/18/16 fluctuance. The patient was seen by Dr. Adriano Mendoza. I was determined that the patient probably had an abscess on the access graft which looked like it was ready to spontaneously hemorrhage. The patient refused to let Dr. Mendoza operate on him at 3 o'clock that afternoon and wanted to defer to Dr. Hewitt who had operated on him before. Dr. Mendoza was called back at approximately 8:00 p.m. stating that the patient has spontaneous bleeding up in the MICU. He was brought down as fast as possible and taken to the operating room where he underwent the above-mentioned procedure. He tolerated this well, and there were no complications. On the , an MRI of the lumbar spine without contrast was performed. The patient was afebrile. Vancomycin was continued. The patient was lethargic. Blood pressure was stable. Chest x-ray showed mild pulmonary vascular congestion. Dilaudid was stopped. He continued to undergo hemodialysis. On the , an MRI of the right lower extremity without contrast was performed. The patient was taken to the operating room where he underwent the above-mentioned procedure. He tolerated this well. There were no complications. The removal of the VAC sponge and secondary closure was performed by Dr. Adriano Mendoza. Vancomycin was continued. He was off Levophed. On 10/22/2016, he remained afebrile. The left arm was stable. He did have some respiratory issues. He was now on CPAP. He had clinical deterioration and overall failure to thrive. He had no new symptoms. The left arm looked good, it was healing slowly. He was transfused one unit of packed red blood cells. The next day, he was more alert. He was still on Levophed. He has had nonischemic cardiomyopathy with ejection fraction 40-45%. It was difficult to obtain his blood pressure. He did have an episode of nonsustained ventricular tachycardia. He was felt to have a new development of congestive heart failure. He had complained that his right lower extremity was burning. He had no new symptoms. His blood cultures were negative at this time. On the , the patient's condition had declined. It took a maximum of two assistants to help him stand a couple of days previously and now was taking three to four people to have him stand. His bilateral upper extremities were weak and jerking. He was not able to control his right upper extremity. He was not moving his left lower extremity. He also has some left ankle pain with marked swelling. Hemodialysis therapy continued. On the , he was seen in consultation by Dr. Med Pierce regarding left ankle pain and edema. The patient had undergone irrigation and debridement for a septic left knee on 10/13/2016, purulent fluid had been obtained. He has had a few days of left ankle pain. There was some concern that he might have a septic ankle. The patient pointed to the medial aspect of the ankle along the course of the posterior tibial tendon as the source of the majority of his discomfort. He did have some anterior ankle pain that was diffuse in nature. He had gentle [id number] of the ankle that was nontender. X-ray of the ankle showed no acute abnormalities or significant bone pathology. A long discussion was held with the patient regarding his diagnosis and treatment option. Due to his comorbid medical conditions as well as his history of left septic knee arthritis he recommended aspiration of the left ankle joint for analysis, the patient agreed. He aspirated a small amount of approximately 2 mL of clear physiologic appearing ankle joint fluid. He used the anteromedial ankle arthroscopy portal location for aspiration site. There were no overt signs or symptoms to include cloudy fluid or purulent. The fluid was sent for aerobic and anaerobic cultures as well as Gram stains. He felt that the most likely diagnosis would be acute inflammatory attacks such as gout attack to the left ankle. He recommended the use of tall boot walker when ambulatory. The patient had a Vas-Cath placed for dialysis, it was felt that he was going to be on permanent dialysis and would need to have a PermCath placed. The patient was taken to the operating room by Dr. Adriano Mendoza where he underwent the Discharge Summary [address] [place]. [address] NAME: MARLENE ZAMORA : 74 STATUS : DIS IN PAT#: [id number] AGE: 46 ADM/REG DATE : 10/11/16 MR#: [id number] REPORT SERV DATE: 11/19/16 DICTATED BY: RODDY GARAY DATE: 11/18/16 REPORT STATUS : Draft TRANSCRIBED BY: MODL DATE: 11/18/16 above-mentioned procedure. He tolerated this well and there were no complications. On 11/01/2016, his ankle was feeling better. He had no new complaints. Cultures remained negative thus far of the ankle aspiration. A boot walker remained in place. He had no new symptoms. He continued to undergo hemodialysis. Physical Therapy evaluated the patient. Discharge planning was performed. On 11/05/2016, discharge instructions were given. Due to his improved and stable condition, he was discharged to [facility] with the above-stated instructions. Information collected by: Rashmi Gambino I submit the above information as my discharge summary. KAEL/MONA Roddy Garay M.D. / [id number] CC: Colt Lawson Jr, M.D. Daniel Fisher Jr., M.D. Lex Regalado M.D. Rigoberto Wang M.D., [facility] Med Pierce MD [facility]
--- NOTE | ~2016-10-11 | OP ---
Record Of Operation [facility] [address] [place]. [address] NAME: MARLENE ZAMORA : 74 STATUS : ADM IN PAT#: [id number] AGE: 45 ADM/REG DATE : 10/11/16 MR#: [id number] REPORT SERV DATE: 10/12/16 DICTATED BY: JOHN PAUL MENDOZA DATE: 10/12/16 REPORT STATUS : Draft TRANSCRIBED BY: MODL DATE: 10/12/16 DATE OF PROCEDURE: 10/12/2016 PREOPERATIVE DIAGNOSIS: Left knee effusion. POSTPROCEDURE DIAGNOSIS: Left knee effusion. PROCEDURE: Aspiration of left knee under sterile conditions. COUNTS RECORDED CORRECT: Yes. BLOOD LOSS/SPECIMEN: Approximately 20 mL of gross pus mixed with blood was aspirated of the left knee. The patient tolerated the procedure well. INDICATIONS FOR PROCEDURE: Briefly, this is a pleasant 45-year-old gentleman whom I was consulted by his primary crane crew supervisor as well as Infectious Disease to evaluate for left knee septic arthritis. Exam was consistent with septic arthritis versus hematoma. I, therefore, discussed the risks and benefits of aspiration at length with the gentleman, and he verbalized understanding and wished to proceed. PROCEDURE IN DETAIL: I then prepped and draped in a sterile fashion. Correct time-out was performed. At that point, I aspirated approximately 20 mL from a suprapatellar lateral portal with an 18-gauge needle. Approximately 20 mL of gross pus was removed. The patient tolerated the procedure. The needle was extracted. The fluid will be sent off for Gram stain, cell counts, anaerobic, aerobic, AFB, and fungal to help guide antibiotic decisions. We also may consider arthroscopic debridement should the patient become stable enough that he is amenable to this versus nonoperative medical management should he not be stable enough for the OR. JUAN/MONA John Paul Mendoza M.D. / [id number] CC: Farhad Jennings Jr, M.D.
--- NOTE | ~2016-10-11 | OP ---
Record Of Operation [facility] [address] [place]. [address] NAME: MARLENE ZAMORA : 74 STATUS : ADM IN [facility]#: [id number] AGE: 45 ADM/REG DATE : 10/11/16 MR#: [id number] REPORT SERV DATE: 10/20/16 DICTATED BY: ADRIANO MENDOZA JR. DATE: 10/19/16 REPORT STATUS : Draft TRANSCRIBED BY: MODL DATE: 10/19/16 DATE OF PROCEDURE: PREOPERATIVE DIAGNOSIS: Positive blood cultures, ruptured abscess (pseudoaneurysm), left upper extremity access graft. POSTOPERATIVE DIAGNOSIS: Positive blood cultures, ruptured abscess (pseudoaneurysm), left upper extremity access graft. OPERATION: Insertion of left subclavian vein Vas-Cath catheter, ligation of left upper extremity access graft, radical debridement of wound, placement of VAC (20 x 20 cm wound). SURGEON: Adriano Mendoza M.D. HISTORY: This is a 45-year-old black male, admitted to the hospital on 10/11/2016 for multiple medical problems including renal failure. While in the hospital, he was noted to have positive blood cultures for staph. I was asked to see the patient earlier this afternoon. It was determined that the patient probably had an abscess on the access graft, which looked like it was ready to spontaneously hemorrhage. Dr. Lockhart and I personally talked to the patient together. The patient refused to let me operate on him at 3 o'clock this afternoon. He wanted to defer to Dr. Hewitt, who had operated on him before. I was called at approximately 8:00 p.m. kathy stating that the patient had spontaneous bleeding up in MICU. He was brought down as fast as possible to the operating room. PROCEDURE: The patient was placed on the operating table. A tight bandage had already been placed around the left arm. He underwent general endotracheal anesthetic. The left shoulder area was then prepped and draped in the usual sterile manner. A long needle was used to find the left subclavian vein. A Vas-Cath catheter was then inserted through the skin into the left subclavian vein. Good positioning was confirmed with fluoroscopy. The catheter was sutured into place and irrigated with heparinized saline. We then removed the wrapping around the left upper extremity. Spontaneous bleeding was seen. I placed a suture ligature in the skin to try to stop this, which did not stop the hemorrhage. I then made an incision toward the arterial anastomosis from the area that was bleeding. The graft was easily found. It was then encircled with 2-0 Vicryl and the graft was ligated in this location. The area was then opened up going toward the axilla. There was a huge amount of backbleeding. We ultimately cut through the false aneurysm and the hemorrhage within the false aneurysm to find the outflow graft. This was then traced all the way up to its attachment to the axillary vein. A stent had been previously placed into the graft and through the venous anastomosis. I then ligated the graft as high as I could in the axilla, leaving some small nub of graft attached to the axillary vein, which was full of stent. This was ligated with 2-0 Vicryl suture. I then went back to the cavity that we had previously opened. It was full of fibrinous debris, hematoma, and necrotic material. Blue scissors were then used to debride this wound down to fascia and below fascia. Bleeding spots were cauterized. The area was obviously cultured. The upper part of the wound was then closed with 3-0 nylon. The lower part of the wound was closed with 3-0 Vicryl. The middle part of the wound was treated with a VAC. Record Of Operation [address] [place]. [address] NAME: MARLENE ZAMORA : 74 STATUS : ADM IN [facility]#: [id number] AGE: 45 ADM/REG DATE : 10/11/16 MR#: [id number] REPORT SERV DATE: 10/20/16 DICTATED BY: ADRIANO MENDOZA JR. DATE: 10/19/16 REPORT STATUS : Draft TRANSCRIBED BY: MODL DATE: 10/19/16 The patient tolerated the procedure remarkably well considering everything. The intraoperative blood loss was 800 mL. There were no major complications. The patient was taken back to ICU in critical condition. DF/MONA Adriano Mendoza Jr., M.D. / [id number] CC: Farhad Jennings Jr, M.D. Gem León M.D.
--- NOTE | ~2016-10-11 | CN ---
Consultation Report [facility] [address] [place]. [address] NAME: YORDAN CLAY : 74 STATUS : ADM IN PAT#: [id number] AGE: 45 ADM/REG DATE : 10/11/16 MR#: [id number] REPORT SERV DATE: 10/11/16 DICTATED BY: RIGOBERTO RIVERA DATE: 10/11/16 REPORT STATUS : Draft TRANSCRIBED BY: MODL DATE: 10/11/16 CARDIOVASCULAR CONSULTATION DATE OF CONSULTATION: 10/11/2016 HISTORY OF PRESENT ILLNESS: Mr. Yordan Clay is a 45-year-old gentleman with past medical history significant for end-stage renal disease and nonischemic cardiomyopathy. He was most recently catheterized by Dr. Jennings in 07/2016. At this time, his coronaries again showed no significant disease. His ejection fraction was 40% to 45%. The patient most recently was admitted here earlier this week with bleeding from his AV fistula. He re- presented this morning complaining of lower extremity pain and shortness of breath. He reports that he had some vague chest pain earlier, but none now. REVIEW OF SYSTEMS: Significant for orthopnea and paroxysmal nocturnal dyspnea. The patient denies any syncope or presyncope. He denies any gastrointestinal or genitourinary complaints. PAST MEDICAL HISTORY: As noted above, significant for end-stage renal disease. The patient is on hemodialysis. He also has had a history of peripheral vascular disease with previous fem-pop bypass. He has a history of obstructive sleep apnea, thyroid and parathyroid disease. He has a history of polycythemia. SOCIAL HISTORY: The patient has previously abused cocaine, but has denied this recently. FAMILY HISTORY: Noncontributory. PHYSICAL EXAMINATION: VITAL SIGNS: Blood pressure 112/74, pulse 135, respiratory rate 22. GENERAL: This is an obese, but chronically ill-appearing 45-year-old male, alert and oriented x3, in mild respiratory distress. CARDIOVASCULAR: Increased rate with regular rhythm. PMI is mildly displaced. ABDOMEN: Soft and obese. Positive bowel sounds. EXTREMITIES: Reveal 2+ lower extremity edema with chronic venous stasis changes. LABORATORY DATA: EKG shows heart rate of approximately 140 with left bundle-branch block. It is regular and likely a sinus tach or possibly atrial flutter. Troponin is minimally elevated at 0.67. The patient's hematocrit is 41. ASSESSMENT: 1. Lower extremity pain and shortness of breath. 2. End-stage renal disease. 3. Nonischemic cardiomyopathy. 4. Peripheral vascular disease. Consultation Report [place] [address] [place] [address] NAME: YORDAN CLAY : 74 STATUS : ADM IN PAT#: [id number] AGE: 45 ADM/REG DATE : 10/11/16 MR#: [id number] REPORT SERV DATE: 10/11/16 DICTATED BY: RIGOBERTO RIVERA DATE: 10/11/16 REPORT STATUS : Draft TRANSCRIBED BY: MONA DATE: 10/11/16 PLAN: 1. Recommend CTA to rule out pulmonary embolism. 2. Renal evaluation. 3. Suspect the patient's heart rate is reactive and appropriate, but we will try to slow him with some digoxin and Cardizem. We appreciate your consultation on this complex patient. Dr. Jennings and I will follow him with you. /MONA Rigoberto Rivera M.D., [facility] / [id number] CC: Farhad Jennings Jr, M.D.
--- NOTE | ~2016-10-11 | OP ---
Record Of Operation [facility] [address] [place]. [address] NAME: MARLENE ZAMORA : 74 STATUS : ADM IN PAT#: [id number] AGE: 45 ADM/REG DATE : 10/11/16 MR#: [id number] REPORT SERV DATE: 10/14/16 DICTATED BY: JOHN PAUL MENDOZA DATE: 10/13/16 REPORT STATUS : Draft TRANSCRIBED BY: MODL DATE: 10/13/16 DATE OF PROCEDURE: 10/13/2016 PREOPERATIVE DIAGNOSIS: Septic arthritis, left knee. POSTOPERATIVE DIAGNOSIS: Septic arthritis, left knee. PROCEDURE: A left knee arthroscopic debridement and irrigation. We also performed a partial medial meniscectomy and a chondroplasty of the medial tibial articular surface. COMPLICATIONS: None. SPECIMENS: Culture was sent to Microbiology. BLOOD LOSS: Less than 50 mL. CONDITION UPON LEAVING OR: Intubated, as per preoperative plan returned to ICU. INDICATIONS FOR SURGERY: This is a pleasant 45-year-old gentleman, who is felt to have painful knee with positive blood cultures and worsening clinical picture. I was subsequently consulted on 10/12/2016 for evaluation of the left knee. Physical exam was suspicious for septic left knee, aspiration was performed and gross pus was identified at that time. He was medically optimized, and felt safe by the primary team to present to the OR for formal arthroscopic debridement, washout, and irrigation. I gave the risks and benefits to him at length. He verbalized understanding and wished to proceed. PROCEDURE IN DETAIL: After the patient was identified in the perioperative holding area, correct side and site identified and marked by me he was taken to the operative suite where he was placed under general endotracheal anesthesia. He was in the supine position with all bony prominences well padded. Correct time-out and antibiotics administered. I then began with a standard anterior medial portal, and introducing the arthroscope taking a full survey of the joint noting the ACL to be intact, noting the medial compartment to be free of disease, suprapatellar pouch had synovitis, the lateral compartment had a torn anterior horn, medial meniscus and articular flap tear of the tibial weightbearing surface, I therefore made a lateral portal, introduced an arthroscopic shaver, debrided the medial meniscus and performed a shaving chondroplasty to smooth out the medial tibial plateau. Once this was accomplished, I then continually took a full survey of the joint as through inflow and outflow. We washed the knee out arthroscopically with 12 L of G.U. Irrigant. He tolerated the procedure well. It should be noted that prior to making my first incision I utilized an 18-gauge spinal needle to again get a new aspirate that hopefully will be assistive in continued cultures, then arthroscopic debridement, irrigation, chondroplasty, and meniscectomy were performed. After remainder of the procedure the scope was extracted, he was dressed appropriately and transferred back to the ICU in guarded condition. Record Of Operation [place] [id number] [facility] [place]. [address] NAME: MARLENE ZAMORA : 74 STATUS : ADM IN PAT#: [id number] AGE: 45 ADM/REG DATE : 10/11/16 MR#: [id number] REPORT SERV DATE: 10/14/16 DICTATED BY: JOHN PAUL MENDOZA DATE: 10/13/16 REPORT STATUS : Draft TRANSCRIBED BY: MONA DATE: 10/13/16 JUAN/MONA John Paul Mendoza M.D. / [id number] CC: Farhad Jennings Jr, M.D.
--- NOTE | ~2016-10-11 | CN ---
Consultation Report [facility] [address] [place]. [address] NAME: MARLENE ZAMORA : 74 STATUS : ADM IN PAT#: [id number] AGE: 45 ADM/REG DATE : 10/11/16 MR#: [id number] REPORT SERV DATE: 10/12/16 DICTATED BY: TROY BRAR DATE: 10/12/16 REPORT STATUS : Draft TRANSCRIBED BY: MODL DATE: 10/12/16 INFECTIOUS DISEASE CONSULTATION. DATE OF CONSULTATION: REASON FOR REFERRAL: Treatment of fever, possible knee infection. HISTORY OF PRESENT ILLNESS: This patient is a 45-year-old male with a history of hypertension, hypothyroidism, end-stage renal disease for which he is on hemodialysis, obesity. He developed bleeding with his left upper extremity graft last week and was admitted in the hospital a couple of days around 10/08/2016 due to that. The bleeding was stopped. He went home, but then returned right away last night with severe pain in his left knee, shortness of breath, spiked a fever after arrival over 103 degrees. He has had blood cultures taken and was started empirically on vancomycin and Zosyn. He denies any recent injury to it. He states that it just began spontaneously. He has never had surgery on it him before. He does have chronic-appearing skin dryness, scaliness, scabbiness on both legs of uncertain etiology. He has had no signs of infection such as pain, etc., at his AV graft site. No recent cuts, scrapes on other parts of his body. No recent need for antibiotics. PAST MEDICAL HISTORY: Otherwise, unremarkable. MEDICATIONS: As have been previously mentioned. ALLERGIES: NO KNOWN ANTIMICROBIAL ALLERGIES. SOCIAL HISTORY: He is a nonsmoker. No history of alcohol or substance abuse. FAMILY HISTORY: Noncontributory. PHYSICAL EXAMINATION: GENERAL: Uncomfortable, diaphoretic male, in distress due to the pain anytime that his leg is moved. VITAL SIGNS: He had a fever earlier of 103, the most recent temperature recorded here is 99.2 with a pulse of 128, respirations 32, blood pressure 67/52, weight of 113 kg. HEENT: Sclerae, clear. No oral lesions. NECK: Supple. LUNGS: Clear anteriorly. HEART: Regular rate and rhythm. ABDOMEN: Soft, nontender. Positive bowel sounds. EXTREMITIES: The knee does not appear to be overtly swollen, has chronic skin changes, but exquisite pain with any movement. He has no other joint complaints. There is no breaks in the skin overlying the knee. I do not feel anything that feels like a septic bursitis. LABORATORY DATA: White count had been 7.6 two days ago and 12 today with a hematocrit of Consultation Report [place] [address] [place]. [address] NAME: MARLENE ZAMORA : 74 STATUS : ADM IN PAT#: [id number] AGE: 45 ADM/REG DATE : 10/11/16 MR#: [id number] REPORT SERV DATE: 10/12/16 DICTATED BY: TROY BRAR DATE: 10/12/16 REPORT STATUS : Draft TRANSCRIBED BY: MONA DATE: 10/12/16 41.7, and platelets 100. BUN and creatinine 51 and 10.10. IMPRESSION: New fever and same time has onset of severe pain in the left knee, so worried about a septic arthritis. It also could be something like gout or pseudogout, but have to assume infection at this point particularly with the recent hospitalization, potential procedures that he could have gotten bacteremic from. RECOMMENDATIONS: 1. Vancomycin and Zosyn have been started, I agree with empiric therapy. 2. Need some orthopedic evaluation, knee aspirate if there is any fluid, felt to be in it, for both diagnosis and cultures. Finally, I will follow the patient with you. I appreciate very much your consulting on this patient. MEHRDAD Troy Brar M.D. / [id number] CC: Farhad Jennings Jr, M.D.
--- NOTE | ~2016-10-11 | CN ---
Consultation Report [facility] [address] [place]. [address] NAME: YORDAN CLAY : 74 STATUS : ADM IN [facility]#: [id number] AGE: 46 ADM/REG DATE : 10/11/16 MR#: [id number] REPORT SERV DATE: 11/01/16 DICTATED BY: JOHN PAUL GARCIA DATE: 11/01/16 REPORT STATUS : Draft TRANSCRIBED BY: MODL DATE: 11/01/16 ORTHOPEDIC FOOT AND ANKLE CONSULTATION DATE OF CONSULTATION: REASON FOR CONSULTATION: Left ankle pain and edema. HISTORY OF PRESENT ILLNESS: Mr. Yordan Clay is a 46-year-old male comorbid with significant past medical history for end-stage renal disease, on dialysis, hypertension, obstructive sleep apnea, hypothyroidism, AV fistula, chronic left bundle-branch block, cardiomyopathy, left heart catheterization, anemia of chronic kidney disease, hypocalcemia, hyperparathyroidism, and peptic ulcer disease. He underwent irrigation and debridement for a septic left knee on 10/13/2016. Purulent fluid was obtained. Over the past few days prior to the consultation, he developed left ankle pain. There was some concern that he might have a septic ankle. I was called to evaluate his ankle. Mr. Clay points to the medial aspect of the ankle along the course of the posterior tibial tendon as the source of the majority of his discomfort. He does have some anterior ankle pain. Certainly, diffuse in nature. Gentle range of motion of the ankle is nontender. PAST MEDICAL HISTORY: See above. ALLERGIES: HYDROCHLOROTHIAZIDE, LISINOPRIL, ATIVAN, DILAUDID, BEE STINGS AND RESENDEZ FISH. HOME MEDICATIONS: Identified as aspirin, Tums, metoprolol, diltiazem, and thyroid replacement medicines. REVIEW OF SYSTEMS: The patient was in his stable health at the time of the evaluation. He denied fevers, chills, nausea, vomiting, abdominal pain, shortness of breath, and chest pain. PHYSICAL EXAMINATION: GENERAL: Reveals an awake, -[place] male. He is obese. He is on oxygen by nasal cannula. HEENT: His head, cranium is normocephalic. Equal pupils. LUNGS: No accessory muscle use. HEART: Tachycardic rate. ABDOMEN: Obese, nontender. EXTREMITIES: Gentle range of motion of his bilateral upper and left lower extremities reveals no significant tenderness. Gentle range of motion of the left ankle does reveal some tenderness. He is point tender to palpation along the medial aspect of his left ankle over the course of the posterior tibial tendon. There is some tenderness anteriorly as well. He has 1 to 2+ pitting edema with severe chronic venous stasis changes. There are no open skin lesions noted. Consultation Report [facility] [address] [address] NAME: YORDAN CLAY : 74 STATUS : ADM IN PAT#: [id number] AGE: 46 ADM/REG DATE : 10/11/16 MR#: [id number] REPORT SERV DATE: 11/01/16 DICTATED BY: JOHN PAUL GARCIA DATE: 11/01/16 REPORT STATUS : Draft TRANSCRIBED BY: MONA DATE: 11/01/16 LABORATORY DATA: Lab results at the time of the evaluation revealed a white count of 5.1. Hemoglobin was 8.4. BMI was 37.9. X-ray of the left ankle was reviewed that revealed no acute abnormalities or significant bone pathology. IMPRESSION: Left ankle pain. PLAN: Lengthy discussion with the patient regarding his diagnosis treatment options. Due to his comorbid medical conditions, as well as his history of left septic knee arthritis, I recommended aspiration of the left ankle joint for analysis. He agreed. The risks and benefits of this procedure were discussed at length with the patient. Please refer to my operative note dictating the left fluid aspiration. The left ankle was prepped and draped in the usual sterile fashion. Using sterile technique, I aspirated a small amount of (approximately 2 mL of clear physiologic-appearing ankle joint fluid). I used the anteromedial ankle arthroscopy portal location for aspiration site. There were no overt signs of infection to include cloudy fluid or purulence. We sent the fluid for aerobic and anaerobic cultures as well as Gram stains. My most likely diagnosis would be an acute inflammatory attacks such as gout attack to the left ankle. I did recommend the use of a tall boot walker when ambulatory. I will keep an eye on the culture results. I appreciate the opportunity to participate in the care of this patient. CYRUS/MONA John Paul Garcia MD / [id number] CC: Colt Lawson Jr, M.D.
--- NOTE | ~2016-10-11 | CN ---
Consultation Report [facility] [address] [place]. [address] NAME: MARLENE CLAY : 74 STATUS : ADM IN PAT#: [id number] AGE: 45 ADM/REG DATE : 10/11/16 MR#: [id number] REPORT SERV DATE: 10/12/16 DICTATED BY: ELIZABETH AARON DATE: 10/12/16 REPORT STATUS : Draft TRANSCRIBED BY: MODL DATE: 10/12/16 PULMONARY AND CRITICAL CARE MEDICINE CONSULTATION DATE OF CONSULTATION: 10/12/2016 Mr. Clay is a gentleman who is familiar to the nephrology service from previous hospitalizations. He was most recently admitted for complications of bleeding from his AV fistula last week. He actually presented complaining of knee pain and shortness of breath on 10/11/2016 and was seen in the emergency department and found to be in atrial fibrillation with RVR. He was treated with amiodarone and also Cardizem drip with mild hypotension. He had bilateral pulmonary infiltrates on chest x-ray and there was concern for pulmonary embolus. He was seen by Dr. Wang, his frame hand who had actually done a heart catheterization on him back in July of 2016 and there was concern for PE. Thus he underwent a CT angio and that was negative for PE. He did undergo dialysis after his CT angiography and ultrafiltration was attempted but was difficult in the setting of hypotension. He continued to complain of left knee pain and ultimately was seen by Orthopedic surgery earlier today, who tapped his left knee and initial cell count showed nucleated cells, greater than 13,000. At this point, presumptive diagnosis is sepsis secondary to septic left knee and he has been started on broad-spectrum antibiotics. A PICC line has been placed in case he requires vasopressors for hemodynamic support and Infectious Disease and Orthopedic Surgery have both been consulted to assist with his care. Dr. Jennings is his primary beaver trapper and Dr. Wang is following him along from a cardiac standpoint. We have been asked to assist with management of his sepsis. PAST MEDICAL HISTORY: ESRD Thursday, Thursday, Thursday dialysis; hypertension; obstructive sleep apnea; hypothyroidism; status post AV fistula with recent revision of left upper extremity; chronic left bundle branch block; cardiomyopathy; left heart cath in April 2016; anemia of chronic kidney disease; hypocalcemia; hyperparathyroidism, status post parathyroidectomy; peptic ulcer disease; and peripheral vascular disease. SURGICAL HISTORY: Parathyroidectomy and AV fistula placement and later revisions as noted above. Previous fem-pop bypass. SOCIAL HISTORY: Previous polysubstance abuse including cocaine, but denies any recent substance abuse. FAMILY HISTORY: Noncontributory. ALLERGIES: LISINOPRIL CAUSES A COUGH AND RASH. WASP STING, ANAPHYLAXIS. CRAWFISH, RASH. ATIVAN CAUSES HALLUCINATIONS. COLLAGENATED OINTMENT (SANTYL) STILL CAUSES FREEMAN TO THE SKIN. HYDROCHLOROTHIAZIDE CAUSES STOMACH CRAMPS; AND DILAUDID CAUSES NAUSEA AND VOMITING. HOME MEDICATIONS: Include albuterol, aspirin, calcium/TUMS, and hydrocodone p.r.n. pain. REVIEW OF SYSTEMS: Consultation Report [address] [place]. [address] NAME: MARLENE CLAY : 74 STATUS : ADM IN PAT#: [id number] AGE: 45 ADM/REG DATE : 10/11/16 MR#: [id number] REPORT SERV DATE: 10/12/16 DICTATED BY: ELIZABETH AARON DATE: 10/12/16 REPORT STATUS : Draft TRANSCRIBED BY: MONA DATE: 10/12/16 A comprehensive 13-point review of systems was completed and was negative except for those described above in the history of present illness section of the dictation. PHYSICAL EXAMINATION: VITAL SIGNS: Blood pressure is adequate on 5 of Levophed with a MAP greater than 100. Of note, noninvasive blood pressure measurements have been difficult due to his peripheral vascular disease. Heart rate is around 101, respiratory rate is 22 with some apneic periods on prolonged observation of him sleeping, he is afebrile. GENERAL: The patient is an male, in no acute distress. He is drowsy but is able to wake up and provide some history. HEENT: Head is atraumatic and normocephalic. Pupils are equal, round, and reactive to light. Extraocular movements are intact. Ears, nose, and mouth are unremarkable. He has slightly dry oral mucosa and fair oral dentition. NECK: With some redundant soft tissue obscuring observation of the jugular vein. HEART: Irregularly irregular. Rate controlled with atrial fibrillation, on the monitor. LUNGS: With few transmitted breath sounds in the upper airways which clear with coughing and diminished breath sounds at the bases with few basilar crackles. ABDOMEN: Obese, soft, nondistended, nontender with positive bowel sounds in all four quadrants and no appreciable peritoneal signs. : Steven catheter is indwelling and draining no urine (the patient does not make urine at his baseline). EXTREMITIES: With chronic changes to the skin with some healed chemical freeman on the lower legs consistent with previous Santyl ointment use. He has xerosis throughout and evidence of peripheral vascular disease based on skin changes. LYMPHATIC: Exam is unremarkable. NEUROLOGIC: He is sluggishly reactive but is arousable and moves all four extremities without difficulty. Otherwise grossly intact. PSYCHIATRIC: Appropriate to situation. DIAGNOSTIC DATA: Personal review of diagnostic workup, he has had a lactate level this morning which was 1.6. A C. diff PCR was negative. He has a [place] [address], normochromic anemia with a hemoglobin of 12.1, hematocrit of 41.7, white blood cell count is 12, and platelet count is 100. Metabolic profile: Sodium is 135, potassium 4.8, chloride is 95, CO2 is 26, BUN is 51 with creatinine of 10.1 (ESRD). Glucose is 121, calcium is 7.3, CPK is 2409, CK-MB is 12.8 and CK-MB index is 0.5. An influenza screen is negative. A uric acid level is 4.8, a cortisol is 60.5, procalcitonin level is markedly elevated at 144, sedimentation rate is elevated at 34. ABG shows a pH of 7.26 with pCO2 of 50 and a PaO2 of 66, bicarb of 22.1, oxygen sat 91% on 36% FiO2. A cell count of right knee fluid shows 13,200 nucleated cells with 140,000 red blood cells, seg predominant (93%). IMAGING: Chest x-ray shows diffuse bilateral pulmonary vascular congestion consistent with mild volume overload. Knee x-ray shows no bony abnormality other than osteopenia. No fractures and some calcification of the arteries about the joint. EKG shows sinus tach without specific tissue without sinus tach without significant ST elevation and depression Consultation Report [place] [id number] [facility] [place] [place]. [address] NAME: MARLENE CLAY : 74 STATUS : ADM IN [facility]#: [id number] AGE: 45 ADM/REG DATE : 10/11/16 MR#: [id number] REPORT SERV DATE: 10/12/16 DICTATED BY: ELIZABETH AARON DATE: 10/12/16 REPORT STATUS : Draft TRANSCRIBED BY: MONA DATE: 10/12/16 when compared to previous films, on a previous EKG from the emergency room too showed atrial fib with RVR. IMPRESSION: 1. Sepsis with shock secondary to septic left knee based on cell count of aspirated body fluid. There is a Gram stain pending. He has already been started on broad-spectrum antibiotics including vancomycin and Zosyn and Dr. Diamond was consulted. I believe Dr. Regalado is going to be seeing them today. Suspect that his pulmonary issues are related to mild volume overload and he would benefit from some ultrafiltration for volume removal. Thrombocytopenia is presumably secondary to sepsis which is involving. We will titrate Levophed on as needed basis to maintain a MAP of greater than 65. At this point, we will hold off on placing an arterial line as he is on a minimal amount of Levophed and we are giving adequate noninvasive blood pressure measurements but we can consider invasive hemodynamic monitoring on an as-needed basis. From a respiratory standpoint, we would favor titrating Vapotherm versus BiPAP as he has had some nausea and vomiting this morning and this can precipitate large volume aspiration. His mental status is adequate at this point, but if he should become more encephalopathic or develop inability to protect his airway, we would proceed with endotracheal intubation and mechanical ventilation. His goal blood sugar during his critical illness will be 140 to 180 per my sugar trial and we will hold his oral antihypertensives until his blood pressure is more stable. Cardiology's assistance. 2. Atrial fibrillation is appreciated. Nephrology will manage dialysis and Infectious Disease is managing the antibiotics. We appreciate the opportunity to participate in Mr. Clay's care. He is a full code. We will continue to monitor him closely throughout the evening and make adjustments to his management as clinically warranted. Please call with questions. VISHAL/MONA Elizabeth Aaron MD / [id number] CC: Farhad Jennings Jr, M.D.
[2016-10-11 10:10] LABS: BASOPHILS 0.1 %; BASOPHILS ABSOLUTE 0.01 10/3/uL (0.0-0.16); EOSINOPHILS 0 %; HEMATOCRIT 41.1 % (40.0-51.0); HEMOGLOBIN 12.2 g/dL (13.6-17.8); IMMATURE GRANULOCYTES 0.3 %; IMMATURE GRANULOCYTES ABSOLUTE 0.02 10/3/uL (0.0-0.11); LYMPHOCYTES 9.5 %; LYMPHOCYTES ABSOLUTE 0.72 10/3/uL (0.67-4.30); MEAN CORPUS HGB CONC 29.7 g/dL (32.0-36.0); MEAN CORPUSCULAR HEMOGLOB 25.4 pg (26.0-34.0); MEAN CORPUSCULAR VOLUME 85.6 fL (80-100); MONOCYTES 4.9 %; MONOCYTES ABSOLUTE 0.37 10/3/uL (0.21-1.20); NEUTROPHILS 85.2 %; NEUTROPHILS ABSOLUTE 6.46 10/3/uL (2.02-8.40); PLATELET COUNT 91 10/3/uL (150-400); RBC DISTRIBUTION WIDTH 17.5 % (12.0-16.0)
[2016-10-11 10:12] LABS: INTERNATIONAL NORMAL RATI 1.3 UNITS (-); PROTIME (NOT ORD) 16.3 SEC (12.0-14.5)
[2016-10-11 10:13] LABS: ER CBC TAT 0 Hrs 13 Mins; WHITE BLOOD CELLS 7.6 10/3/uL (4.5-10.5)
[2016-10-11 10:14] LABS: MANUAL DIFF NO %
[2016-10-11 10:17] LABS: CALCIUM, SERUM 7.7 MG/DL (8.5-10.4); CHLORIDE, SERUM 96 MMOL/L (96-112); CO2 (CARBON DIOXIDE) 23 MMOL/L (24-34); POTASSIUM, SERUM 4.6 MMOL/L (3.5-5.3); SALICYLATE 2.2 MG/DL (-); SODIUM, SERUM 132 MMOL/L (135-148)
[2016-10-11 10:18] LABS: BUN (BLOOD UREA NITROGEN) 47 MG/DL (6-23); CHEST PAIN PROFILE TAT 0 Hrs 18 Mins; CREATININE 9.74 MG/DL (0.70-1.30); GFR AFRICAN AMERICAN 7 ML/MIN (>=60); GFR NON AFRICAN AMERICAN 6 ML/MIN (>=60); GLUCOSE, SERUM 161 MG/DL (60-99); TROPONIN I 0.67 NG/ML (<0.05)
[2016-10-11 10:19] LABS: ACETAMINOPHEN LEVEL (TYLENOL) < 2.0 MCG/ML (10.0-20.0); ALCOHOL < 10 MG/DL (0)
[2016-10-11 10:54] LABS: ANISOCYTOSIS 1+ (5-10/OIF) (0-5/OIF); MICROCYTES 1+ (5-10/OIF) (0-5/OIF); PLATELET ESTIMATE SLT DEC (ADEQUATE)
[2016-10-11 10:55] LABS: HYPOCHROMIA 1+ (3-10/OIF) (0-2/OIF); POLYCHROMASIA 1+ (2-5/OIF) (0-1/OIF)
[2016-10-11] MEDS ORDERED: UNKNOWN MEDICATION IV (12:26)
[2016-10-11] MEDS ORDERED: ALBUTEROL5 INH (12:35)
[2016-10-11 18:31] LABS: CK-MB 20.9 NG/ML
[2016-10-11 18:32] LABS: CKMB INDEX (NOT ORD) 0.8
[2016-10-11 19:49] LABS: INSTRUMENT SERIAL # 8083
[2016-10-11 19:50] LABS: BE (BASE EXCESS) -2.5 MEQ/L (0 +/- 2.5); CARBOXYHEMOGLOBIN 1.9 % (0-3); DEVICE NC; HCO3 (ACTUAL BICARBONATE) 21.7 MEQ/L (23-27); HEMOBLOGIN CONTENT 13.4 G/DL (14-18); O2 CONTENT 17.7 VOL% (18-24); PCO2 (CO2 TENSION) 36 MMHG (35-45); PO2 (O2 TENSION) 75 MMHG (79-93); SAMPLE Arterial
[2016-10-12 02:19] LABS: BASOPHILS 0.1 %; BASOPHILS ABSOLUTE 0.01 10/3/uL (0.0-0.16); EOSINOPHILS 0 %; HEMATOCRIT 41.7 % (40.0-51.0); HEMOGLOBIN 12.1 g/dL (13.6-17.8); IMMATURE GRANULOCYTES 0.4 %; IMMATURE GRANULOCYTES ABSOLUTE 0.05 10/3/uL (0.0-0.11); LYMPHOCYTES 6.6 %; LYMPHOCYTES ABSOLUTE 0.79 10/3/uL (0.67-4.30); MANUAL DIFF NO %; MEAN CORPUSCULAR HEMOGLOB 25.6 pg (26.0-34.0); MEAN CORPUSCULAR VOLUME 88.2 fL (80-100); MONOCYTES 11.1 %; MONOCYTES ABSOLUTE 1.33 10/3/uL (0.21-1.20); NEUTROPHILS 81.8 %; NEUTROPHILS ABSOLUTE 9.84 10/3/uL (2.02-8.40); PLATELET COUNT 100 10/3/uL (150-400); RBC DISTRIBUTION WIDTH 17.3 % (12.0-16.0); RED CELL COUNT 4.73 10/6/uL (4.7-6.1)
[2016-10-12 02:40] LABS: CALCIUM, SERUM 7.3 MG/DL (8.5-10.4); CHLORIDE, SERUM 95 MMOL/L (96-112); CK-MB 12.8 NG/ML; CO2 (CARBON DIOXIDE) 26 MMOL/L (24-34); CPK 2409 U/L (0-200); GFR AFRICAN AMERICAN 6 ML/MIN (>=60); GFR NON AFRICAN AMERICAN 6 ML/MIN (>=60); POTASSIUM, SERUM 4.8 MMOL/L (3.5-5.3); SODIUM, SERUM 135 MMOL/L (135-148)
[2016-10-12 02:42] LABS: ANISOCYTOSIS 1+ (5-10/OIF) (0-5/OIF); BUN (BLOOD UREA NITROGEN) 51 MG/DL (6-23); CKMB INDEX (NOT ORD) 0.5; GLUCOSE, SERUM 121 MG/DL (60-99); PLATELET ESTIMATE SLT DEC (ADEQUATE)
[2016-10-12 02:43] LABS: HYPOCHROMIA 1+ (3-10/OIF) (0-2/OIF)
[2016-10-12 09:35] LABS: INFLUENZA A SCREEN NEGATIVE (NEGATIVE); INFLUENZA B SCREEN NEGATIVE (NEGATIVE)
[2016-10-12 12:27] LABS: BE (BASE EXCESS) -5.2 MEQ/L (0 +/- 2.5); CARBOXYHEMOGLOBIN 1.7 % (0-3); DEVICE NC; HCO3 (ACTUAL BICARBONATE) 22.1 MEQ/L (23-27); HEMOBLOGIN CONTENT 12.5 G/DL (14-18); INSTRUMENT SERIAL # 8083; METHEMOGLOBIN 0.2 % (0-3); O2 CONTENT 15.8 VOL% (18-24); PCO2 (CO2 TENSION) 50 MMHG (35-45); PO2 (O2 TENSION) 66 MMHG (79-93); SAMPLE Arterial; pH 7.26 (7.37-7.43)
[2016-10-12 13:51] LABS: BD FL LYMPH (NOT ORD) 1 %; BD FL SOURCE (NOT ORD) LT KNEE; BF BASO (NOT OF) 0 %; BF LARGE MONONUCLEAR 5 %; BODY FLUID EOS (NOT ORD) 1 %; BODY FLUID SEG (NOT ORD) 93 %
[2016-10-12 13:53] LABS: BF TOTAL CELL CT (NOT ORD 13200 /MM3; BODY FLUID RBC (NOT ORD) 140000 /MM3
[2016-10-12 19:54] LABS: CARBOXYHEMOGLOBIN 1.9 % (0-3); HCO3 (ACTUAL BICARBONATE) 20.4 MEQ/L (23-27); INSTRUMENT SERIAL # 8083; PCO2 (CO2 TENSION) 60 MMHG (35-45); PO2 (O2 TENSION) 88 MMHG (79-93); pH 7.15 (7.37-7.43)
[2016-10-12 19:55] LABS: ALLENS TEST Pos; DEVICE VAPOTHERM; HEMOBLOGIN CONTENT 13.2 G/DL (14-18); O2 CONTENT 17.3 VOL% (18-24); OPERATOR ID 17370; SAMPLE Arterial
[2016-10-12 23:31] LABS: ALLENS TEST Pos; BE (BASE EXCESS) -8.6 MEQ/L (0 +/- 2.5); CARBOXYHEMOGLOBIN 1.4 % (0-3); DEVICE HFNC; HCO3 (ACTUAL BICARBONATE) 21.7 MEQ/L (23-27); HEMOBLOGIN CONTENT 13.5 G/DL (14-18); INSTRUMENT SERIAL # 8083; METHEMOGLOBIN 0.2 % (0-3); O2 CONTENT 16.9 VOL% (18-24); OPERATOR ID 17370; PCO2 (CO2 TENSION) 68 MMHG (35-45); PO2 (O2 TENSION) 67 MMHG (79-93); SAMPLE Arterial; pH 7.12 (7.37-7.43)
[2016-10-13 05:02] LABS: HEMATOCRIT 42.9 % (40.0-51.0); HEMOGLOBIN 12.4 g/dL (13.6-17.8); MEAN CORPUS HGB CONC 28.9 g/dL (32.0-36.0); MEAN CORPUSCULAR HEMOGLOB 25.4 pg (26.0-34.0); MEAN CORPUSCULAR VOLUME 87.9 fL (80-100); NUCLEATED RED BLOOD CELLS 0.3 /100WBC (0-0); RED CELL COUNT 4.88 10/6/uL (4.7-6.1)
[2016-10-13 05:07] LABS: PLATELET COUNT 189 10/3/uL (150-400); WHITE BLOOD CELLS 23.1 10/3/uL (4.5-10.5)
[2016-10-13 05:08] LABS: MANUAL DIFF YES %
[2016-10-13 05:23] LABS: A/G RATIO 0.6 (0.7-1.9); ALBUMIN 3.2 G/DL (3.5-5.0); CALCIUM, SERUM 7.4 MG/DL (8.5-10.4); CHLORIDE, SERUM 94 MMOL/L (96-112); GLOBULIN 5.7 G/DL (2.5-4.1); SGOT(AST) 44 U/L (5-40); SGPT(ALT) 27 U/L (5-65); SODIUM, SERUM 131 MMOL/L (135-148); TOTAL PROTEIN 8.9 G/DL (6.0-8.5)
[2016-10-13 05:38] LABS: ALKALINE PHOSPHATASE 115 U/L (45-117); BUN (BLOOD UREA NITROGEN) 79 MG/DL (6-23); CO2 (CARBON DIOXIDE) 21 MMOL/L (24-34); GFR AFRICAN AMERICAN 5 ML/MIN (>=60); GFR NON AFRICAN AMERICAN 4 ML/MIN (>=60); GLUCOSE, SERUM 158 MG/DL (60-99); PHOSPHORUS, SERUM 7.8 MG/DL (2.5-4.5); POTASSIUM, SERUM 6.3 MMOL/L (3.5-5.3); TOTAL BILIRUBIN 1.6 MG/DL (0-1.2)
[2016-10-13 05:51] LABS: BAND NEUTROPHILS 5 %; LYMPHOCYTES 5 %; LYMPHOCYTES ABSOLUTE (CALC) 1.16 10/3/uL (0.67-4.30); MONOCYTES 8 %; MONOCYTES ABSOLUTE (CALC) 1.85 10/3/uL (0.21-1.20); SEGMENTED NEUTROPHIL (0) 82 %; TOTAL NUCLEATED CELLS 100
[2016-10-13 05:52] LABS: PLATELET ESTIMATE ADQ (ADEQUATE); SCHISTOCYTES OCC (0-2/OIF)
[2016-10-13 05:53] LABS: HYPOCHROMIA 1+ (3-10/OIF) (0-2/OIF)
[2016-10-13 06:16] LABS: ALLENS TEST Pos; BE (BASE EXCESS) -9.3 MEQ/L (0 +/- 2.5); BIPAP 20/6 cm.H2O; CARBOXYHEMOGLOBIN 1.1 % (0-3); HCO3 (ACTUAL BICARBONATE) 21.5 MEQ/L (23-27); HEMOBLOGIN CONTENT 13.3 G/DL (14-18); INSTRUMENT SERIAL # 8083; METHEMOGLOBIN 0.1 % (0-3); O2 CONTENT 17.6 VOL% (18-24); OPERATOR ID 17370; PCO2 (CO2 TENSION) 72 MMHG (35-45); PO2 (O2 TENSION) 92 MMHG (79-93); SAMPLE Arterial
[2016-10-13 08:57] LABS: ALLENS TEST Pos; BE (BASE EXCESS) -8.3 MEQ/L (0 +/- 2.5); BIPAP 24/6 cm.H2O; CARBOXYHEMOGLOBIN 1.4 % (0-3); HCO3 (ACTUAL BICARBONATE) 22.3 MEQ/L (23-27); INSTRUMENT SERIAL # 8083; METHEMOGLOBIN 0.2 % (0-3); O2 CONTENT 18.9 VOL% (18-24); OPERATOR ID 13715; PCO2 (CO2 TENSION) 71 MMHG (35-45); PO2 (O2 TENSION) 102 MMHG (79-93); SAMPLE Arterial; pH 7.12 (7.37-7.43)
[2016-10-13 15:02] LABS: FREE T4 0.73 NG/DL (0.76-1.46)
[2016-10-13 16:37] LABS: CALCIUM, SERUM 7.6 MG/DL (8.5-10.4); CHLORIDE, SERUM 100 MMOL/L (96-112); CO2 (CARBON DIOXIDE) 21 MMOL/L (24-34); GFR AFRICAN AMERICAN 6 ML/MIN (>=60); GFR NON AFRICAN AMERICAN 6 ML/MIN (>=60); GLUCOSE, SERUM 150 MG/DL (60-99); POTASSIUM, SERUM 5.9 MMOL/L (3.5-5.3); SODIUM, SERUM 135 MMOL/L (135-148)
[2016-10-13 16:41] LABS: BUN (BLOOD UREA NITROGEN) 60 MG/DL (6-23)
[2016-10-13 17:52] LABS: BE (BASE EXCESS) -9.8 MEQ/L (0 +/- 2.5); CARBOXYHEMOGLOBIN 1.1 % (0-3); DEVICE VM; HCO3 (ACTUAL BICARBONATE) 20.5 MEQ/L (23-27); HEMOBLOGIN CONTENT 13.6 G/DL (14-18); INSTRUMENT SERIAL # 11843; METHEMOGLOBIN 0.4 % (0-3); OPERATOR ID 13715; PCO2 (CO2 TENSION) 66 MMHG (35-45); PO2 (O2 TENSION) 92 MMHG (79-93); SAMPLE Arterial; pH 7.11 (7.37-7.43)
[2016-10-13 22:11] LABS: CARBOXYHEMOGLOBIN 1.6 % (0-3); HCO3 (ACTUAL BICARBONATE) 19.5 MEQ/L (23-27); INSTRUMENT SERIAL # 8083; METHEMOGLOBIN 0.1 % (0-3); MODE CMV; O2 CONTENT 18.6 VOL% (18-24); OPERATOR ID 334499; PCO2 (CO2 TENSION) 43 MMHG (35-45); PO2 (O2 TENSION) 289 MMHG (79-93); SAMPLE Arterial; TIDAL VOLUME 750 ML; pH 7.28 (7.37-7.43)
[2016-10-14 03:17] LABS: BE (BASE EXCESS) -7.9 MEQ/L (0 +/- 2.5); CARBOXYHEMOGLOBIN 1.1 % (0-3); HCO3 (ACTUAL BICARBONATE) 18.1 MEQ/L (23-27); HEMOBLOGIN CONTENT 12.2 G/DL (14-18); INSTRUMENT SERIAL # 8083; METHEMOGLOBIN 0.1 % (0-3); MODE CMV; O2 CONTENT 16.8 VOL% (18-24); OPERATOR ID 17370; PCO2 (CO2 TENSION) 39 MMHG (35-45); PO2 (O2 TENSION) 108 MMHG (79-93); SAMPLE Arterial; TIDAL VOLUME 600 ML; pH 7.29 (7.37-7.43)
[2016-10-14 03:27] LABS: BASOPHILS 0.1 %; BASOPHILS ABSOLUTE 0.01 10/3/uL (0.0-0.16); EOSINOPHILS 0.1 %; EOSINOPHILS ABSOLUTE 0.01 10/3/uL (0.0-0.53); HEMOGLOBIN 11.3 g/dL (13.6-17.8); IMMATURE GRANULOCYTES 0.3 %; IMMATURE GRANULOCYTES ABSOLUTE 0.03 10/3/uL (0.0-0.11); LYMPHOCYTES 18.7 %; LYMPHOCYTES ABSOLUTE 2.15 10/3/uL (0.67-4.30); MEAN CORPUS HGB CONC 30.1 g/dL (32.0-36.0); MEAN CORPUSCULAR HEMOGLOB 25.5 pg (26.0-34.0); MONOCYTES 7.5 %; MONOCYTES ABSOLUTE 0.86 10/3/uL (0.21-1.20); NEUTROPHILS 73.3 %; NEUTROPHILS ABSOLUTE 8.43 10/3/uL (2.02-8.40); PLATELET COUNT 142 10/3/uL (150-400); RBC DISTRIBUTION WIDTH 17.9 % (12.0-16.0); RED CELL COUNT 4.43 10/6/uL (4.7-6.1)
[2016-10-14 03:28] LABS: HEMATOCRIT 37.6 % (40.0-51.0); MEAN CORPUSCULAR VOLUME 84.9 fL (80-100); WHITE BLOOD CELLS 11.5 10/3/uL (4.5-10.5)
[2016-10-14 03:31] LABS: MANUAL DIFF NO %
[2016-10-14 03:47] LABS: A/G RATIO 0.5 (0.7-1.9); ALBUMIN 2.6 G/DL (3.5-5.0); CALCIUM, SERUM 7.2 MG/DL (8.5-10.4); CHLORIDE, SERUM 101 MMOL/L (96-112); CO2 (CARBON DIOXIDE) 20 MMOL/L (24-34); GLOBULIN 5.3 G/DL (2.5-4.1); GLUCOSE, SERUM 124 MG/DL (60-99); POTASSIUM, SERUM 5.2 MMOL/L (3.5-5.3); SGOT(AST) 28 U/L (5-40); SGPT(ALT) 22 U/L (5-65); SODIUM, SERUM 136 MMOL/L (135-148); TOTAL PROTEIN 7.9 G/DL (6.0-8.5)
[2016-10-14 03:48] LABS: ALKALINE PHOSPHATASE 92 U/L (45-117); BUN (BLOOD UREA NITROGEN) 72 MG/DL (6-23); GFR AFRICAN AMERICAN 6 ML/MIN (>=60); GFR NON AFRICAN AMERICAN 5 ML/MIN (>=60); PHOSPHORUS, SERUM 5.3 MG/DL (2.5-4.5); TOTAL BILIRUBIN 0.7 MG/DL (0-1.2)
[2016-10-14 03:51] LABS: ANISOCYTOSIS 1+ (5-10/OIF) (0-5/OIF); PLATELET ESTIMATE SLT DEC (ADEQUATE)
[2016-10-14 03:52] LABS: HYPOCHROMIA 1+ (3-10/OIF) (0-2/OIF)
[2016-10-14 17:21] LABS: PREALBUMIN 16.9 MG/DL (17.0-43.0)
[2016-10-14 17:46] LABS: IRON BINDING CAPACITY 291 MCG/DL (250-450)
[2016-10-14 17:52] LABS: IRON, SERUM 27 MCG/DL (35-150)
[2016-10-15 04:22] LABS: BASOPHILS 0.1 %; BASOPHILS ABSOLUTE 0.01 10/3/uL (0.0-0.16); EOSINOPHILS 0.8 %; EOSINOPHILS ABSOLUTE 0.08 10/3/uL (0.0-0.53); HEMATOCRIT 34.8 % (40.0-51.0); HEMOGLOBIN 10.4 g/dL (13.6-17.8); IMMATURE GRANULOCYTES 0.5 %; IMMATURE GRANULOCYTES ABSOLUTE 0.05 10/3/uL (0.0-0.11); LYMPHOCYTES 12.7 %; LYMPHOCYTES ABSOLUTE 1.22 10/3/uL (0.67-4.30); MEAN CORPUS HGB CONC 29.9 g/dL (32.0-36.0); MEAN CORPUSCULAR HEMOGLOB 25.6 pg (26.0-34.0); MEAN CORPUSCULAR VOLUME 85.5 fL (80-100); MONOCYTES 7.3 %; NEUTROPHILS 78.6 %; NEUTROPHILS ABSOLUTE 7.54 10/3/uL (2.02-8.40); PLATELET COUNT 156 10/3/uL (150-400); RBC DISTRIBUTION WIDTH 17.6 % (12.0-16.0); RED CELL COUNT 4.07 10/6/uL (4.7-6.1); WHITE BLOOD CELLS 9.6 10/3/uL (4.5-10.5)
[2016-10-15 04:23] LABS: MANUAL DIFF NO %
[2016-10-15 04:25] LABS: INTERNATIONAL NORMAL RATI 1.2 UNITS (-); PROTIME (NOT ORD) 15.5 SEC (12.0-14.5)
[2016-10-15 04:43] LABS: ALBUMIN 2.6 G/DL (3.5-5.0); ALKALINE PHOSPHATASE 95 U/L (45-117); CALCIUM, SERUM 7.6 MG/DL (8.5-10.4); CHLORIDE, SERUM 100 MMOL/L (96-112); CO2 (CARBON DIOXIDE) 19 MMOL/L (24-34); DIRECT BILIRUBIN 0.2 MG/DL (0.0-0.4); GLUCOSE, SERUM 124 MG/DL (60-99); POTASSIUM, SERUM 4.9 MMOL/L (3.5-5.3); SGOT(AST) 20 U/L (5-40); SGPT(ALT) 19 U/L (5-65); SODIUM, SERUM 137 MMOL/L (135-148); TOTAL PROTEIN 7.8 G/DL (6.0-8.5)
[2016-10-15 04:44] LABS: BE (BASE EXCESS) -7.3 MEQ/L (0 +/- 2.5); CARBOXYHEMOGLOBIN 1.2 % (0-3); HCO3 (ACTUAL BICARBONATE) 20.1 MEQ/L (23-27); HEMOBLOGIN CONTENT 12.2 G/DL (14-18); INSTRUMENT SERIAL # 8083; METHEMOGLOBIN 0.1 % (0-3); MODE CMV; OPERATOR ID 30013; PCO2 (CO2 TENSION) 49 MMHG (35-45); PO2 (O2 TENSION) 142 MMHG (79-93); SAMPLE Arterial; TIDAL VOLUME 600 ML; pH 7.24 (7.37-7.43)
[2016-10-15 04:44] LABS: BUN (BLOOD UREA NITROGEN) 82 MG/DL (6-23); GFR AFRICAN AMERICAN 5 ML/MIN (>=60); GFR NON AFRICAN AMERICAN 4 ML/MIN (>=60); PHOSPHORUS, SERUM 6.3 MG/DL (2.5-4.5)
[2016-10-15 04:45] LABS: TOTAL BILIRUBIN 1.2 MG/DL (0-1.2)
[2016-10-15 05:05] LABS: ANISOCYTOSIS 1+ (5-10/OIF) (0-5/OIF); OVALOCYTES 1+ (3-10/OIF) (0-2/OIF); PLATELET ESTIMATE ADQ (ADEQUATE); TEARDROP SHAPED RBCS FEW (3-10/OIF)
[2016-10-15 05:06] LABS: SCHISTOCYTES FEW (3-10/OIF)
[2016-10-16 04:05] LABS: CARBOXYHEMOGLOBIN 1.6 % (0-3); DEVICE NC; HCO3 (ACTUAL BICARBONATE) 22.7 MEQ/L (23-27); HEMOBLOGIN CONTENT 11.1 G/DL (14-18); INSTRUMENT SERIAL # 8083; METHEMOGLOBIN 0.1 % (0-3); O2 CONTENT 14.8 VOL% (18-24); OPERATOR ID 30014; PCO2 (CO2 TENSION) 55 MMHG (35-45); PO2 (O2 TENSION) 89 MMHG (79-93); SAMPLE Arterial; pH 7.24 (7.37-7.43)
[2016-10-16 04:18] LABS: BASOPHILS 0.1 %; BASOPHILS ABSOLUTE 0.01 10/3/uL (0.0-0.16); EOSINOPHILS 0.6 %; EOSINOPHILS ABSOLUTE 0.05 10/3/uL (0.0-0.53); HEMATOCRIT 32.6 % (40.0-51.0); HEMOGLOBIN 9.6 g/dL (13.6-17.8); IMMATURE GRANULOCYTES 0.5 %; IMMATURE GRANULOCYTES ABSOLUTE 0.04 10/3/uL (0.0-0.11); LYMPHOCYTES 9.6 %; LYMPHOCYTES ABSOLUTE 0.84 10/3/uL (0.67-4.30); MEAN CORPUS HGB CONC 29.4 g/dL (32.0-36.0); MEAN CORPUSCULAR HEMOGLOB 25.6 pg (26.0-34.0); MEAN CORPUSCULAR VOLUME 86.9 fL (80-100); MONOCYTES 10.6 %; MONOCYTES ABSOLUTE 0.93 10/3/uL (0.21-1.20); NEUTROPHILS 78.6 %; NEUTROPHILS ABSOLUTE 6.92 10/3/uL (2.02-8.40); PLATELET COUNT 120 10/3/uL (150-400); RBC DISTRIBUTION WIDTH 17.5 % (12.0-16.0); RED CELL COUNT 3.75 10/6/uL (4.7-6.1); WHITE BLOOD CELLS 8.8 10/3/uL (4.5-10.5)
[2016-10-16 04:19] LABS: MANUAL DIFF NO %
[2016-10-16 04:33] LABS: BUN (BLOOD UREA NITROGEN) 50 MG/DL (6-23); CALCIUM, SERUM 7.7 MG/DL (8.5-10.4); CHLORIDE, SERUM 104 MMOL/L (96-112); CO2 (CARBON DIOXIDE) 25 MMOL/L (24-34); CREATININE 9.41 MG/DL (0.70-1.30); GFR AFRICAN AMERICAN 7 ML/MIN (>=60); GFR NON AFRICAN AMERICAN 6 ML/MIN (>=60); GLUCOSE, SERUM 123 MG/DL (60-99); PHOSPHORUS, SERUM 4.7 MG/DL (2.5-4.5); POTASSIUM, SERUM 4.3 MMOL/L (3.5-5.3); SODIUM, SERUM 141 MMOL/L (135-148)
[2016-10-16 04:48] LABS: ANISOCYTOSIS 1+ (5-10/OIF) (0-5/OIF); OVALOCYTES 1+ (3-10/OIF) (0-2/OIF); PLATELET ESTIMATE DEC (ADEQUATE); POIKILOCYTOSIS 1+ (5-10/OIF) (0-5/OIF); SCHISTOCYTES FEW (3-10/OIF)
[2016-10-17 04:58] LABS: A/G RATIO 0.5 (0.7-1.9); ALBUMIN 2.6 G/DL (3.5-5.0); CALCIUM, SERUM 7.9 MG/DL (8.5-10.4); CHLORIDE, SERUM 101 MMOL/L (96-112); CO2 (CARBON DIOXIDE) 21 MMOL/L (24-34); GLOBULIN 5.2 G/DL (2.5-4.1); PHOSPHORUS, SERUM 5.4 MG/DL (2.5-4.5); POTASSIUM, SERUM 4.9 MMOL/L (3.5-5.3); SGOT(AST) 23 U/L (5-40); SGPT(ALT) 16 U/L (5-65); SODIUM, SERUM 137 MMOL/L (135-148); TOTAL PROTEIN 7.8 G/DL (6.0-8.5)
[2016-10-17 05:00] LABS: ALKALINE PHOSPHATASE 127 U/L (45-117); BUN (BLOOD UREA NITROGEN) 64 MG/DL (6-23); GFR AFRICAN AMERICAN 6 ML/MIN (>=60); GFR NON AFRICAN AMERICAN 5 ML/MIN (>=60); GLUCOSE, SERUM 96 MG/DL (60-99); TOTAL BILIRUBIN 0.5 MG/DL (0-1.2)
[2016-10-17 05:03] LABS: BASOPHILS 0.8 %; BASOPHILS ABSOLUTE 0.05 10/3/uL (0.0-0.16); EOSINOPHILS 1.7 %; EOSINOPHILS ABSOLUTE 0.11 10/3/uL (0.0-0.53); HEMATOCRIT 30.4 % (40.0-51.0); HEMOGLOBIN 9.1 g/dL (13.6-17.8); IMMATURE GRANULOCYTES 0.6 %; IMMATURE GRANULOCYTES ABSOLUTE 0.04 10/3/uL (0.0-0.11); LYMPHOCYTES 11.8 %; LYMPHOCYTES ABSOLUTE 0.76 10/3/uL (0.67-4.30); MEAN CORPUS HGB CONC 29.9 g/dL (32.0-36.0); MEAN CORPUSCULAR HEMOGLOB 25.5 pg (26.0-34.0); MEAN CORPUSCULAR VOLUME 85.2 fL (80-100); MONOCYTES 12.6 %; MONOCYTES ABSOLUTE 0.81 10/3/uL (0.21-1.20); NEUTROPHILS 72.5 %; NEUTROPHILS ABSOLUTE 4.66 10/3/uL (2.02-8.40); PLATELET COUNT 125 10/3/uL (150-400); RBC DISTRIBUTION WIDTH 17.6 % (12.0-16.0); RED CELL COUNT 3.57 10/6/uL (4.7-6.1); WHITE BLOOD CELLS 6.4 10/3/uL (4.5-10.5)
[2016-10-17 05:10] LABS: MANUAL DIFF NO %
[2016-10-17 05:56] LABS: SCHISTOCYTES OCC (0-2/OIF); TEARDROP SHAPED RBCS OCC (0-2/OIF)
[2016-10-17 05:57] LABS: ANISOCYTOSIS 1+ (5-10/OIF) (0-5/OIF); HYPOCHROMIA 1+ (3-10/OIF) (0-2/OIF)
[2016-10-17 05:59] LABS: PLATELET ESTIMATE SLT DEC (ADEQUATE)
[2016-10-18 04:17] LABS: BASOPHILS 0.5 %; BASOPHILS ABSOLUTE 0.04 10/3/uL (0.0-0.16); EOSINOPHILS ABSOLUTE 0.15 10/3/uL (0.0-0.53); HEMATOCRIT 31.5 % (40.0-51.0); HEMOGLOBIN 9.4 g/dL (13.6-17.8); IMMATURE GRANULOCYTES 0.3 %; IMMATURE GRANULOCYTES ABSOLUTE 0.02 10/3/uL (0.0-0.11); LYMPHOCYTES 12.3 %; LYMPHOCYTES ABSOLUTE 0.91 10/3/uL (0.67-4.30); MEAN CORPUS HGB CONC 29.8 g/dL (32.0-36.0); MEAN CORPUSCULAR HEMOGLOB 25.4 pg (26.0-34.0); MEAN CORPUSCULAR VOLUME 85.1 fL (80-100); MEAN PLATELET VOLUME 10.3 fL (9.2-13.0); MONOCYTES 11.9 %; MONOCYTES ABSOLUTE 0.88 10/3/uL (0.21-1.20); RBC DISTRIBUTION WIDTH 17.4 % (12.0-16.0); WHITE BLOOD CELLS 7.4 10/3/uL (4.5-10.5)
[2016-10-18 04:18] LABS: MANUAL DIFF NO %; PLATELET COUNT 194 10/3/uL (150-400)
[2016-10-18 04:27] LABS: ALBUMIN 2.7 G/DL (3.5-5.0); BUN (BLOOD UREA NITROGEN) 51 MG/DL (6-23); CALCIUM, SERUM 8.3 MG/DL (8.5-10.4); CHLORIDE, SERUM 98 MMOL/L (96-112); CO2 (CARBON DIOXIDE) 22 MMOL/L (24-34); CREATININE 9.79 MG/DL (0.70-1.30); GFR AFRICAN AMERICAN 7 ML/MIN (>=60); GFR NON AFRICAN AMERICAN 6 ML/MIN (>=60); GLUCOSE, SERUM 102 MG/DL (60-99); PHOSPHORUS, SERUM 4.3 MG/DL (2.5-4.5); SODIUM, SERUM 138 MMOL/L (135-148)
[2016-10-19 05:25] LABS: CALCIUM, SERUM 8.1 MG/DL (8.5-10.4); CHLORIDE, SERUM 99 MMOL/L (96-112); CO2 (CARBON DIOXIDE) 23 MMOL/L (24-34); GLUCOSE, SERUM 121 MG/DL (60-99); POTASSIUM, SERUM 4.1 MMOL/L (3.5-5.3); SODIUM, SERUM 135 MMOL/L (135-148)
[2016-10-19 05:27] LABS: BUN (BLOOD UREA NITROGEN) 68 MG/DL (6-23); GFR AFRICAN AMERICAN 6 ML/MIN (>=60); GFR NON AFRICAN AMERICAN 5 ML/MIN (>=60); PHOSPHORUS, SERUM 5.8 MG/DL (2.5-4.5)
[2016-10-19 05:36] LABS: BASOPHILS 0.4 %; BASOPHILS ABSOLUTE 0.03 10/3/uL (0.0-0.16); EOSINOPHILS 2.5 %; EOSINOPHILS ABSOLUTE 0.18 10/3/uL (0.0-0.53); HEMATOCRIT 31.3 % (40.0-51.0); HEMOGLOBIN 9.2 g/dL (13.6-17.8); IMMATURE GRANULOCYTES 0.4 %; IMMATURE GRANULOCYTES ABSOLUTE 0.03 10/3/uL (0.0-0.11); LYMPHOCYTES 15.5 %; MEAN CORPUS HGB CONC 29.4 g/dL (32.0-36.0); MEAN CORPUSCULAR HEMOGLOB 25.7 pg (26.0-34.0); MEAN CORPUSCULAR VOLUME 87.4 fL (80-100); MEAN PLATELET VOLUME 10.3 fL (9.2-13.0); MONOCYTES ABSOLUTE 0.71 10/3/uL (0.21-1.20); NEUTROPHILS 71.2 %; NEUTROPHILS ABSOLUTE 5.05 10/3/uL (2.02-8.40); PLATELET COUNT 237 10/3/uL (150-400); RBC DISTRIBUTION WIDTH 17.4 % (12.0-16.0); RED CELL COUNT 3.58 10/6/uL (4.7-6.1); WHITE BLOOD CELLS 7.1 10/3/uL (4.5-10.5)
[2016-10-19 05:44] LABS: MANUAL DIFF NO %
[2016-10-20 01:08] LABS: HEMATOCRIT 31.3 % (40.0-51.0); HEMOGLOBIN 9.5 g/dL (13.6-17.8)
[2016-10-20 04:55] LABS: BASOPHILS 0.3 %; BASOPHILS ABSOLUTE 0.02 10/3/uL (0.0-0.16); EOSINOPHILS 1.9 %; EOSINOPHILS ABSOLUTE 0.14 10/3/uL (0.0-0.53); HEMATOCRIT 29.8 % (40.0-51.0); HEMOGLOBIN 8.9 g/dL (13.6-17.8); IMMATURE GRANULOCYTES 0.5 %; IMMATURE GRANULOCYTES ABSOLUTE 0.04 10/3/uL (0.0-0.11); LYMPHOCYTES 14.4 %; LYMPHOCYTES ABSOLUTE 1.06 10/3/uL (0.67-4.30); MEAN CORPUS HGB CONC 29.9 g/dL (32.0-36.0); MEAN CORPUSCULAR HEMOGLOB 26.1 pg (26.0-34.0); MEAN CORPUSCULAR VOLUME 87.4 fL (80-100); MEAN PLATELET VOLUME 10.5 fL (9.2-13.0); MONOCYTES 13.1 %; MONOCYTES ABSOLUTE 0.97 10/3/uL (0.21-1.20); NEUTROPHILS 69.8 %; NEUTROPHILS ABSOLUTE 5.15 10/3/uL (2.02-8.40); PLATELET COUNT 220 10/3/uL (150-400); RBC DISTRIBUTION WIDTH 17.2 % (12.0-16.0); RED CELL COUNT 3.41 10/6/uL (4.7-6.1); WHITE BLOOD CELLS 7.4 10/3/uL (4.5-10.5)
[2016-10-20 05:02] LABS: INTERNATIONAL NORMAL RATI 1.3 UNITS (-); MANUAL DIFF NO %; PROTIME (NOT ORD) 16.1 SEC (12.0-14.5)
[2016-10-20 05:03] LABS: PARTIAL THROMBO TIME 45.5 SEC (22.5-37.2)
[2016-10-20 05:04] LABS: CALCIUM, SERUM 7.9 MG/DL (8.5-10.4); CHLORIDE, SERUM 98 MMOL/L (96-112); CO2 (CARBON DIOXIDE) 20 MMOL/L (24-34); POTASSIUM, SERUM 4.6 MMOL/L (3.5-5.3); SODIUM, SERUM 133 MMOL/L (135-148)
[2016-10-20 05:10] LABS: BUN (BLOOD UREA NITROGEN) 76 MG/DL (6-23); GFR AFRICAN AMERICAN 5 ML/MIN (>=60); GFR NON AFRICAN AMERICAN 4 ML/MIN (>=60); GLUCOSE, SERUM 94 MG/DL (60-99)
[2016-10-21 05:01] LABS: BASOPHILS 0 %; EOSINOPHILS 1.4 %; EOSINOPHILS ABSOLUTE 0.08 10/3/uL (0.0-0.53); HEMOGLOBIN 7.4 g/dL (13.6-17.8); IMMATURE GRANULOCYTES 0.5 %; IMMATURE GRANULOCYTES ABSOLUTE 0.03 10/3/uL (0.0-0.11); LYMPHOCYTES 14.1 %; LYMPHOCYTES ABSOLUTE 0.79 10/3/uL (0.67-4.30); MANUAL DIFF NO %; MEAN CORPUS HGB CONC 29.6 g/dL (32.0-36.0); MEAN CORPUSCULAR HEMOGLOB 26.3 pg (26.0-34.0); MEAN PLATELET VOLUME 11.1 fL (9.2-13.0); MONOCYTES 17.6 %; MONOCYTES ABSOLUTE 0.99 10/3/uL (0.21-1.20); NEUTROPHILS 66.4 %; NEUTROPHILS ABSOLUTE 3.72 10/3/uL (2.02-8.40); PLATELET COUNT 206 10/3/uL (150-400); RBC DISTRIBUTION WIDTH 17.6 % (12.0-16.0); RED CELL COUNT 2.81 10/6/uL (4.7-6.1); WHITE BLOOD CELLS 5.6 10/3/uL (4.5-10.5)
[2016-10-21 05:36] LABS: A/G RATIO 0.5 (0.7-1.9); ALBUMIN 2.3 G/DL (3.5-5.0); ALKALINE PHOSPHATASE 130 U/L (45-117); CALCIUM, SERUM 7.3 MG/DL (8.5-10.4); CHLORIDE, SERUM 101 MMOL/L (96-112); GLOBULIN 4.8 G/DL (2.5-4.1); GLUCOSE, SERUM 100 MG/DL (60-99); POTASSIUM, SERUM 4.7 MMOL/L (3.5-5.3); PREALBUMIN 11.3 MG/DL (17.0-43.0); SGOT(AST) 19 U/L (5-40); SGPT(ALT) 17 U/L (5-65); SODIUM, SERUM 137 MMOL/L (135-148); TOTAL BILIRUBIN 0.3 MG/DL (0-1.2); TOTAL PROTEIN 7.1 G/DL (6.0-8.5)
[2016-10-21 05:38] LABS: BUN (BLOOD UREA NITROGEN) 53 MG/DL (6-23); CO2 (CARBON DIOXIDE) 25 MMOL/L (24-34); CREATININE 9.59 MG/DL (0.70-1.30); GFR AFRICAN AMERICAN 7 ML/MIN (>=60); GFR NON AFRICAN AMERICAN 6 ML/MIN (>=60); PHOSPHORUS, SERUM 4.3 MG/DL (2.5-4.5)
[2016-10-22 03:49] LABS: CARBOXYHEMOGLOBIN 1.9 % (0-3); HCO3 (ACTUAL BICARBONATE) 22.4 MEQ/L (23-27); HEMOBLOGIN CONTENT 8.3 G/DL (14-18); INSTRUMENT SERIAL # 8083; METHEMOGLOBIN 0.2 % (0-3); O2 CONTENT 11.3 VOL% (18-24); PCO2 (CO2 TENSION) 62 MMHG (35-45); PO2 (O2 TENSION) 99 MMHG (79-93); SAMPLE Arterial; TIDAL VOLUME 105 ML; pH 7.18 (7.37-7.43)
[2016-10-22 04:37] LABS: BASOPHILS 0.1 %; BASOPHILS ABSOLUTE 0.01 10/3/uL (0.0-0.16); EOSINOPHILS 1.1 %; EOSINOPHILS ABSOLUTE 0.09 10/3/uL (0.0-0.53); HEMATOCRIT 26.5 % (40.0-51.0); HEMOGLOBIN 7.6 g/dL (13.6-17.8); IMMATURE GRANULOCYTES 0.5 %; IMMATURE GRANULOCYTES ABSOLUTE 0.04 10/3/uL (0.0-0.11); LYMPHOCYTES ABSOLUTE 0.79 10/3/uL (0.67-4.30); MEAN CORPUS HGB CONC 28.7 g/dL (32.0-36.0); MEAN CORPUSCULAR HEMOGLOB 25.9 pg (26.0-34.0); MEAN CORPUSCULAR VOLUME 90.1 fL (80-100); MEAN PLATELET VOLUME 10.6 fL (9.2-13.0); MONOCYTES 14.8 %; MONOCYTES ABSOLUTE 1.17 10/3/uL (0.21-1.20); NEUTROPHILS 73.5 %; NEUTROPHILS ABSOLUTE 5.81 10/3/uL (2.02-8.40); PLATELET COUNT 248 10/3/uL (150-400); RBC DISTRIBUTION WIDTH 17.5 % (12.0-16.0); RED CELL COUNT 2.94 10/6/uL (4.7-6.1)
[2016-10-22 04:38] LABS: MANUAL DIFF NO %; WHITE BLOOD CELLS 7.9 10/3/uL (4.5-10.5)
[2016-10-22 05:00] LABS: ALBUMIN 2.3 G/DL (3.5-5.0); CALCIUM, SERUM 7.3 MG/DL (8.5-10.4); CHLORIDE, SERUM 96 MMOL/L (96-112); CO2 (CARBON DIOXIDE) 25 MMOL/L (24-34); GLUCOSE, SERUM 104 MG/DL (60-99); SODIUM, SERUM 131 MMOL/L (135-148)
[2016-10-22 05:02] LABS: BUN (BLOOD UREA NITROGEN) 61 MG/DL (6-23); GFR AFRICAN AMERICAN 6 ML/MIN (>=60); GFR NON AFRICAN AMERICAN 5 ML/MIN (>=60); PHOSPHORUS, SERUM 6.2 MG/DL (2.5-4.5); POTASSIUM, SERUM 5.9 MMOL/L (3.5-5.3)
[2016-10-22 07:35] LABS: ALLENS TEST Pos; BE (BASE EXCESS) -4.3 MEQ/L (0 +/- 2.5); BIPAP 18/5 cm.H2O; CARBOXYHEMOGLOBIN 2.2 % (0-3); HCO3 (ACTUAL BICARBONATE) 24.3 MEQ/L (23-27); INSTRUMENT SERIAL # 8083; METHEMOGLOBIN 0.2 % (0-3); O2 CONTENT 11.1 VOL% (18-24); OPERATOR ID 13715; PCO2 (CO2 TENSION) 68 MMHG (35-45); PO2 (O2 TENSION) 121 MMHG (79-93); SAMPLE Arterial; pH 7.17 (7.37-7.43)
[2016-10-22 09:58] LABS: BE (BASE EXCESS) -3.4 MEQ/L (0 +/- 2.5); CARBOXYHEMOGLOBIN 1.4 % (0-3); HCO3 (ACTUAL BICARBONATE) 24.8 MEQ/L (23-27); HEMOBLOGIN CONTENT 8.9 G/DL (14-18); INSTRUMENT SERIAL # 8083; METHEMOGLOBIN 0.3 % (0-3); O2 CONTENT 12.5 VOL% (18-24); PCO2 (CO2 TENSION) 63 MMHG (35-45); PO2 (O2 TENSION) 151 MMHG (79-93); pH 7.21 (7.37-7.43)
[2016-10-22 09:59] LABS: ALLENS TEST Pos; BIPAP 20/5 cm.H2O; OPERATOR ID 13715; SAMPLE Arterial
[2016-10-23 04:50] LABS: BASOPHILS 0.4 %; BASOPHILS ABSOLUTE 0.02 10/3/uL (0.0-0.16); EOSINOPHILS 1.6 %; EOSINOPHILS ABSOLUTE 0.09 10/3/uL (0.0-0.53); IMMATURE GRANULOCYTES 0.2 %; IMMATURE GRANULOCYTES ABSOLUTE 0.01 10/3/uL (0.0-0.11); LYMPHOCYTES 23.2 %; LYMPHOCYTES ABSOLUTE 1.31 10/3/uL (0.67-4.30); MEAN CORPUS HGB CONC 27.9 g/dL (32.0-36.0); MEAN CORPUSCULAR HEMOGLOB 24.8 pg (26.0-34.0); MONOCYTES 13.8 %; MONOCYTES ABSOLUTE 0.78 10/3/uL (0.21-1.20); NEUTROPHILS 60.8 %; NEUTROPHILS ABSOLUTE 3.44 10/3/uL (2.02-8.40); PLATELET COUNT 180 10/3/uL (150-400); RBC DISTRIBUTION WIDTH 17.3 % (12.0-16.0); RED CELL COUNT 2.54 10/6/uL (4.7-6.1); WHITE BLOOD CELLS 5.7 10/3/uL (4.5-10.5)
[2016-10-23 04:58] LABS: HEMATOCRIT 22.6 % (40.0-51.0); HEMOGLOBIN 6.3 g/dL (13.6-17.8)
[2016-10-23 05:00] LABS: MANUAL DIFF NO %
[2016-10-23 05:12] LABS: ALBUMIN 2.5 G/DL (3.5-5.0); CALCIUM, SERUM 7.5 MG/DL (8.5-10.4); CHLORIDE, SERUM 102 MMOL/L (96-112); CO2 (CARBON DIOXIDE) 23 MMOL/L (24-34); GLUCOSE, SERUM 89 MG/DL (60-99); POTASSIUM, SERUM 5.2 MMOL/L (3.5-5.3); SODIUM, SERUM 137 MMOL/L (135-148)
[2016-10-23 05:13] LABS: BUN (BLOOD UREA NITROGEN) 49 MG/DL (6-23); CREATININE 9.14 MG/DL (0.70-1.30); GFR AFRICAN AMERICAN 7 ML/MIN (>=60); GFR NON AFRICAN AMERICAN 6 ML/MIN (>=60); PHOSPHORUS, SERUM 5.1 MG/DL (2.5-4.5)
[2016-10-23 07:25] LABS: ANISOCYTOSIS 1+ (5-10/OIF) (0-5/OIF); PLATELET ESTIMATE ADQ (ADEQUATE)
[2016-10-24 04:38] LABS: ALBUMIN 2.5 G/DL (3.5-5.0); CALCIUM, SERUM 7.8 MG/DL (8.5-10.4); CHLORIDE, SERUM 99 MMOL/L (96-112); CO2 (CARBON DIOXIDE) 24 MMOL/L (24-34); GFR AFRICAN AMERICAN 6 ML/MIN (>=60); GFR NON AFRICAN AMERICAN 5 ML/MIN (>=60); GLUCOSE, SERUM 93 MG/DL (60-99); PHOSPHORUS, SERUM 4.6 MG/DL (2.5-4.5); SODIUM, SERUM 134 MMOL/L (135-148)
[2016-10-24 04:42] LABS: BUN (BLOOD UREA NITROGEN) 65 MG/DL (6-23)
[2016-10-24 05:22] LABS: BASOPHILS 0.2 %; BASOPHILS ABSOLUTE 0.01 10/3/uL (0.0-0.16); EOSINOPHILS 2.2 %; EOSINOPHILS ABSOLUTE 0.11 10/3/uL (0.0-0.53); IMMATURE GRANULOCYTES 0.4 %; IMMATURE GRANULOCYTES ABSOLUTE 0.02 10/3/uL (0.0-0.11); LYMPHOCYTES 19.7 %; LYMPHOCYTES ABSOLUTE 0.97 10/3/uL (0.67-4.30); MEAN CORPUSCULAR HEMOGLOB 26.1 pg (26.0-34.0); MEAN CORPUSCULAR VOLUME 87.6 fL (80-100); MEAN PLATELET VOLUME 10.4 fL (9.2-13.0); MONOCYTES 9.9 %; MONOCYTES ABSOLUTE 0.49 10/3/uL (0.21-1.20); NEUTROPHILS 67.6 %; NEUTROPHILS ABSOLUTE 3.33 10/3/uL (2.02-8.40); PLATELET COUNT 206 10/3/uL (150-400); RBC DISTRIBUTION WIDTH 16.7 % (12.0-16.0); RED CELL COUNT 2.91 10/6/uL (4.7-6.1); WHITE BLOOD CELLS 4.9 10/3/uL (4.5-10.5)
[2016-10-24 05:31] LABS: HEMATOCRIT 25.5 % (40.0-51.0); HEMOGLOBIN 7.6 g/dL (13.6-17.8); MANUAL DIFF NO %; MEAN CORPUS HGB CONC 29.8 g/dL (32.0-36.0)
[2016-10-24 06:38] LABS: PLATELET ESTIMATE ADQ (ADEQUATE)
[2016-10-24 06:39] LABS: ANISOCYTOSIS 1+ (5-10/OIF) (0-5/OIF); POIKILOCYTOSIS 1+ (5-10/OIF) (0-5/OIF); SPHEROCYTES OCC (0-2/OIF)
[2016-10-24 13:13] LABS: CALCIUM, SERUM 8.3 MG/DL (8.5-10.4)
[2016-10-24 13:14] LABS: POTASSIUM, SERUM 3.9 MMOL/L (3.5-5.3)
[2016-10-25 05:22] LABS: BASOPHILS 0.4 %; BASOPHILS ABSOLUTE 0.02 10/3/uL (0.0-0.16); EOSINOPHILS 2.4 %; EOSINOPHILS ABSOLUTE 0.12 10/3/uL (0.0-0.53); IMMATURE GRANULOCYTES 0.4 %; IMMATURE GRANULOCYTES ABSOLUTE 0.02 10/3/uL (0.0-0.11); LYMPHOCYTES 16.9 %; LYMPHOCYTES ABSOLUTE 0.84 10/3/uL (0.67-4.30); MEAN CORPUS HGB CONC 29.9 g/dL (32.0-36.0); MEAN CORPUSCULAR HEMOGLOB 26.9 pg (26.0-34.0); MEAN CORPUSCULAR VOLUME 89.7 fL (80-100); MEAN PLATELET VOLUME 10.2 fL (9.2-13.0); MONOCYTES 11.5 %; MONOCYTES ABSOLUTE 0.57 10/3/uL (0.21-1.20); NEUTROPHILS 68.4 %; NUCLEATED RED BLOOD CELLS 0.7 /100WBC (0-0); PLATELET COUNT 228 10/3/uL (150-400); RBC DISTRIBUTION WIDTH 16.8 % (12.0-16.0)
[2016-10-25 05:23] LABS: HEMATOCRIT 31.4 % (40.0-51.0); HEMOGLOBIN 9.4 g/dL (13.6-17.8); MANUAL DIFF NO %
[2016-10-25 05:31] LABS: ALBUMIN 2.6 G/DL (3.5-5.0); CALCIUM, SERUM 8.1 MG/DL (8.5-10.4); CHLORIDE, SERUM 100 MMOL/L (96-112); CO2 (CARBON DIOXIDE) 25 MMOL/L (24-34); GFR AFRICAN AMERICAN 8 ML/MIN (>=60); GFR NON AFRICAN AMERICAN 7 ML/MIN (>=60); GLUCOSE, SERUM 90 MG/DL (60-99); PHOSPHORUS, SERUM 4.7 MG/DL (2.5-4.5); SODIUM, SERUM 135 MMOL/L (135-148)
[2016-10-25 05:32] LABS: BUN (BLOOD UREA NITROGEN) 47 MG/DL (6-23); CREATININE 8.68 MG/DL (0.70-1.30); POTASSIUM, SERUM 4.7 MMOL/L (3.5-5.3)
[2016-10-26 04:38] LABS: BASOPHILS 0.7 %; BASOPHILS ABSOLUTE 0.03 10/3/uL (0.0-0.16); EOSINOPHILS 2.1 %; EOSINOPHILS ABSOLUTE 0.09 10/3/uL (0.0-0.53); HEMATOCRIT 31.2 % (40.0-51.0); HEMOGLOBIN 9.3 g/dL (13.6-17.8); IMMATURE GRANULOCYTES 0.2 %; IMMATURE GRANULOCYTES ABSOLUTE 0.01 10/3/uL (0.0-0.11); LYMPHOCYTES 15.3 %; LYMPHOCYTES ABSOLUTE 0.66 10/3/uL (0.67-4.30); MANUAL DIFF NO %; MEAN CORPUS HGB CONC 29.8 g/dL (32.0-36.0); MEAN CORPUSCULAR HEMOGLOB 27.1 pg (26.0-34.0); MONOCYTES ABSOLUTE 0.56 10/3/uL (0.21-1.20); NEUTROPHILS 68.7 %; NEUTROPHILS ABSOLUTE 2.97 10/3/uL (2.02-8.40); PLATELET COUNT 221 10/3/uL (150-400); RED CELL COUNT 3.43 10/6/uL (4.7-6.1); WHITE BLOOD CELLS 4.3 10/3/uL (4.5-10.5)
[2016-10-26 04:52] LABS: BUN (BLOOD UREA NITROGEN) 62 MG/DL (6-23); CALCIUM, SERUM 7.9 MG/DL (8.5-10.4); CHLORIDE, SERUM 98 MMOL/L (96-112); CO2 (CARBON DIOXIDE) 26 MMOL/L (24-34); GFR AFRICAN AMERICAN 6 ML/MIN (>=60); GFR NON AFRICAN AMERICAN 5 ML/MIN (>=60); GLUCOSE, SERUM 93 MG/DL (60-99); PHOSPHORUS, SERUM 4.8 MG/DL (2.5-4.5); SODIUM, SERUM 133 MMOL/L (135-148)
[2016-10-27 09:40] LABS: BASOPHILS 0.4 %; BASOPHILS ABSOLUTE 0.02 10/3/uL (0.0-0.16); EOSINOPHILS 1.1 %; EOSINOPHILS ABSOLUTE 0.06 10/3/uL (0.0-0.53); HEMATOCRIT 28.2 % (40.0-51.0); HEMOGLOBIN 8.4 g/dL (13.6-17.8); IMMATURE GRANULOCYTES 0.2 %; IMMATURE GRANULOCYTES ABSOLUTE 0.01 10/3/uL (0.0-0.11); LYMPHOCYTES 15.7 %; LYMPHOCYTES ABSOLUTE 0.83 10/3/uL (0.67-4.30); MEAN CORPUS HGB CONC 29.8 g/dL (32.0-36.0); MEAN CORPUSCULAR HEMOGLOB 26.3 pg (26.0-34.0); MEAN PLATELET VOLUME 10.6 fL (9.2-13.0); MONOCYTES 10.2 %; MONOCYTES ABSOLUTE 0.54 10/3/uL (0.21-1.20); NEUTROPHILS 72.4 %; NEUTROPHILS ABSOLUTE 3.83 10/3/uL (2.02-8.40); PLATELET COUNT 213 10/3/uL (150-400); RBC DISTRIBUTION WIDTH 17.2 % (12.0-16.0); WHITE BLOOD CELLS 5.3 10/3/uL (4.5-10.5)
[2016-10-27 09:44] LABS: MANUAL DIFF NO %; MEAN CORPUSCULAR VOLUME 88.1 fL (80-100)
[2016-10-27 09:53] LABS: CALCIUM, SERUM 7.9 MG/DL (8.5-10.4); CHLORIDE, SERUM 96 MMOL/L (96-112); CO2 (CARBON DIOXIDE) 24 MMOL/L (24-34); GFR AFRICAN AMERICAN 5 ML/MIN (>=60); GFR NON AFRICAN AMERICAN 5 ML/MIN (>=60); GLUCOSE, SERUM 92 MG/DL (60-99); POTASSIUM, SERUM 5.9 MMOL/L (3.5-5.3); SODIUM, SERUM 130 MMOL/L (135-148)
[2016-10-27 09:54] LABS: BUN (BLOOD UREA NITROGEN) 79 MG/DL (6-23)
[2016-10-28 09:09] LABS: BASOPHILS 0.4 %; BASOPHILS ABSOLUTE 0.02 10/3/uL (0.0-0.16); HEMATOCRIT 30.6 % (40.0-51.0); IMMATURE GRANULOCYTES 0.4 %; IMMATURE GRANULOCYTES ABSOLUTE 0.02 10/3/uL (0.0-0.11); LYMPHOCYTES 18.8 %; LYMPHOCYTES ABSOLUTE 0.95 10/3/uL (0.67-4.30); MANUAL DIFF NO %; MEAN CORPUS HGB CONC 29.4 g/dL (32.0-36.0); MEAN CORPUSCULAR HEMOGLOB 26.9 pg (26.0-34.0); MEAN CORPUSCULAR VOLUME 91.6 fL (80-100); MEAN PLATELET VOLUME 10.2 fL (9.2-13.0); MONOCYTES 8.9 %; MONOCYTES ABSOLUTE 0.45 10/3/uL (0.21-1.20); NEUTROPHILS 69.5 %; NEUTROPHILS ABSOLUTE 3.52 10/3/uL (2.02-8.40); PLATELET COUNT 213 10/3/uL (150-400); RBC DISTRIBUTION WIDTH 17.3 % (12.0-16.0); RED CELL COUNT 3.34 10/6/uL (4.7-6.1); WHITE BLOOD CELLS 5.1 10/3/uL (4.5-10.5)
[2016-10-28 09:18] LABS: CHLORIDE, SERUM 96 MMOL/L (96-112); CO2 (CARBON DIOXIDE) 27 MMOL/L (24-34); GFR AFRICAN AMERICAN 6 ML/MIN (>=60); GFR NON AFRICAN AMERICAN 5 ML/MIN (>=60); GLUCOSE, SERUM 96 MG/DL (60-99); PHOSPHORUS, SERUM 4.5 MG/DL (2.5-4.5); POTASSIUM, SERUM 5.7 MMOL/L (3.5-5.3); SODIUM, SERUM 132 MMOL/L (135-148)
[2016-10-28 09:19] LABS: BUN (BLOOD UREA NITROGEN) 67 MG/DL (6-23)
[2016-10-29 13:55] LABS: BASOPHILS 0.6 %; BASOPHILS ABSOLUTE 0.04 10/3/uL (0.0-0.16); EOSINOPHILS 1.7 %; EOSINOPHILS ABSOLUTE 0.11 10/3/uL (0.0-0.53); HEMATOCRIT 30.3 % (40.0-51.0); IMMATURE GRANULOCYTES 0.2 %; IMMATURE GRANULOCYTES ABSOLUTE 0.01 10/3/uL (0.0-0.11); LYMPHOCYTES 13.5 %; LYMPHOCYTES ABSOLUTE 0.86 10/3/uL (0.67-4.30); MEAN CORPUS HGB CONC 29.7 g/dL (32.0-36.0); MEAN CORPUSCULAR HEMOGLOB 26.9 pg (26.0-34.0); MEAN CORPUSCULAR VOLUME 90.7 fL (80-100); MEAN PLATELET VOLUME 10.3 fL (9.2-13.0); MONOCYTES 13.4 %; MONOCYTES ABSOLUTE 0.85 10/3/uL (0.21-1.20); NEUTROPHILS 70.6 %; NEUTROPHILS ABSOLUTE 4.48 10/3/uL (2.02-8.40); PLATELET COUNT 215 10/3/uL (150-400); RED CELL COUNT 3.34 10/6/uL (4.7-6.1); WHITE BLOOD CELLS 6.4 10/3/uL (4.5-10.5)
[2016-10-29 13:58] LABS: MANUAL DIFF NO %
[2016-10-29 14:07] LABS: ALBUMIN 2.8 G/DL (3.5-5.0); BUN (BLOOD UREA NITROGEN) 82 MG/DL (6-23); CALCIUM, SERUM 8.4 MG/DL (8.5-10.4); CHLORIDE, SERUM 94 MMOL/L (96-112); CO2 (CARBON DIOXIDE) 24 MMOL/L (24-34); GFR AFRICAN AMERICAN 5 ML/MIN (>=60); GFR NON AFRICAN AMERICAN 5 ML/MIN (>=60); GLUCOSE, SERUM 79 MG/DL (60-99); PHOSPHORUS, SERUM 5.3 MG/DL (2.5-4.5); POTASSIUM, SERUM 6.6 MMOL/L (3.5-5.3); SODIUM, SERUM 130 MMOL/L (135-148)
[2016-10-29 16:44] LABS: BE (BASE EXCESS) -2.3 MEQ/L (0 +/- 2.5); HCO3 (ACTUAL BICARBONATE) 25.5 MEQ/L (23-27); INSTRUMENT SERIAL # 8083; O2 CONTENT 13.2 VOL% (18-24); PCO2 (CO2 TENSION) 60 MMHG (35-45); PO2 (O2 TENSION) 83 MMHG (79-93); SAMPLE Arterial; pH 7.25 (7.37-7.43)
[2016-10-30 06:16] LABS: BASOPHILS 0.4 %; BASOPHILS ABSOLUTE 0.02 10/3/uL (0.0-0.16); EOSINOPHILS 1.4 %; EOSINOPHILS ABSOLUTE 0.07 10/3/uL (0.0-0.53); HEMATOCRIT 28.4 % (40.0-51.0); HEMOGLOBIN 8.4 g/dL (13.6-17.8); IMMATURE GRANULOCYTES 0.6 %; IMMATURE GRANULOCYTES ABSOLUTE 0.03 10/3/uL (0.0-0.11); LYMPHOCYTES 13.5 %; LYMPHOCYTES ABSOLUTE 0.69 10/3/uL (0.67-4.30); MEAN CORPUS HGB CONC 29.6 g/dL (32.0-36.0); MEAN CORPUSCULAR HEMOGLOB 26.9 pg (26.0-34.0); MEAN PLATELET VOLUME 10.2 fL (9.2-13.0); MONOCYTES 17.2 %; MONOCYTES ABSOLUTE 0.88 10/3/uL (0.21-1.20); NEUTROPHILS 66.9 %; NEUTROPHILS ABSOLUTE 3.44 10/3/uL (2.02-8.40); PLATELET COUNT 193 10/3/uL (150-400); RED CELL COUNT 3.12 10/6/uL (4.7-6.1); WHITE BLOOD CELLS 5.1 10/3/uL (4.5-10.5)
[2016-10-30 06:23] LABS: MANUAL DIFF NO %
[2016-10-30 06:28] LABS: ALBUMIN 2.7 G/DL (3.5-5.0); CALCIUM, SERUM 8.5 MG/DL (8.5-10.4); CHLORIDE, SERUM 102 MMOL/L (96-112); CO2 (CARBON DIOXIDE) 21 MMOL/L (24-34); GLUCOSE, SERUM 80 MG/DL (60-99); POTASSIUM, SERUM 5.6 MMOL/L (3.5-5.3); SODIUM, SERUM 135 MMOL/L (135-148)
[2016-10-30 06:29] LABS: BUN (BLOOD UREA NITROGEN) 59 MG/DL (6-23); CREATININE 9.05 MG/DL (0.70-1.30); GFR AFRICAN AMERICAN 7 ML/MIN (>=60); GFR NON AFRICAN AMERICAN 6 ML/MIN (>=60); PHOSPHORUS, SERUM 3.5 MG/DL (2.5-4.5)
[2016-10-30 07:06] LABS: ANISOCYTOSIS 1+ (5-10/OIF) (0-5/OIF); PLATELET ESTIMATE ADQ (ADEQUATE)
[2016-10-30 07:07] LABS: PROCALCITONIN 4.72 ng/mL (<0.5)
[2016-10-30 15:58] LABS: BASOPHILS 0.4 %; BASOPHILS ABSOLUTE 0.02 10/3/uL (0.0-0.16); EOSINOPHILS 1.3 %; EOSINOPHILS ABSOLUTE 0.07 10/3/uL (0.0-0.53); HEMATOCRIT 29.2 % (40.0-51.0); HEMOGLOBIN 8.7 g/dL (13.6-17.8); IMMATURE GRANULOCYTES 0.2 %; IMMATURE GRANULOCYTES ABSOLUTE 0.01 10/3/uL (0.0-0.11); LYMPHOCYTES 20.2 %; LYMPHOCYTES ABSOLUTE 1.12 10/3/uL (0.67-4.30); MEAN CORPUS HGB CONC 29.8 g/dL (32.0-36.0); MEAN CORPUSCULAR HEMOGLOB 26.9 pg (26.0-34.0); MEAN CORPUSCULAR VOLUME 90.1 fL (80-100); MEAN PLATELET VOLUME 10.3 fL (9.2-13.0); MONOCYTES 9.2 %; MONOCYTES ABSOLUTE 0.51 10/3/uL (0.21-1.20); NEUTROPHILS 68.7 %; NEUTROPHILS ABSOLUTE 3.82 10/3/uL (2.02-8.40); PLATELET COUNT 192 10/3/uL (150-400); RBC DISTRIBUTION WIDTH 16.7 % (12.0-16.0); RED CELL COUNT 3.24 10/6/uL (4.7-6.1); WHITE BLOOD CELLS 5.6 10/3/uL (4.5-10.5)
[2016-10-30 15:59] LABS: MANUAL DIFF NO %
[2016-10-30 16:08] LABS: ALBUMIN 2.7 G/DL (3.5-5.0); CALCIUM, SERUM 8.2 MG/DL (8.5-10.4); CHLORIDE, SERUM 102 MMOL/L (96-112); CO2 (CARBON DIOXIDE) 23 MMOL/L (24-34); PHOSPHORUS, SERUM 2.6 MG/DL (2.5-4.5); POTASSIUM, SERUM 4.7 MMOL/L (3.5-5.3); SODIUM, SERUM 137 MMOL/L (135-148)
[2016-10-30 16:12] LABS: BUN (BLOOD UREA NITROGEN) 36 MG/DL (6-23); CREATININE 6.27 MG/DL (0.70-1.30); GFR AFRICAN AMERICAN 11 ML/MIN (>=60); GFR NON AFRICAN AMERICAN 10 ML/MIN (>=60); GLUCOSE, SERUM 105 MG/DL (60-99)
[2016-10-31 14:35] LABS: BASOPHILS 0.5 %; BASOPHILS ABSOLUTE 0.02 10/3/uL (0.0-0.16); EOSINOPHILS 2.8 %; EOSINOPHILS ABSOLUTE 0.11 10/3/uL (0.0-0.53); HEMATOCRIT 29.8 % (40.0-51.0); HEMOGLOBIN 8.8 g/dL (13.6-17.8); LYMPHOCYTES 14.1 %; LYMPHOCYTES ABSOLUTE 0.55 10/3/uL (0.67-4.30); MEAN CORPUS HGB CONC 29.5 g/dL (32.0-36.0); MEAN CORPUSCULAR HEMOGLOB 26.3 pg (26.0-34.0); MEAN PLATELET VOLUME 10.5 fL (9.2-13.0); MONOCYTES 13.1 %; MONOCYTES ABSOLUTE 0.51 10/3/uL (0.21-1.20); NEUTROPHILS 69.5 %; PLATELET COUNT 203 10/3/uL (150-400); RED CELL COUNT 3.35 10/6/uL (4.7-6.1); WHITE BLOOD CELLS 3.9 10/3/uL (4.5-10.5)
[2016-10-31 14:36] LABS: MANUAL DIFF NO %
[2016-10-31 14:40] LABS: ALBUMIN 2.6 G/DL (3.5-5.0); BUN (BLOOD UREA NITROGEN) 38 MG/DL (6-23); CALCIUM, SERUM 8.3 MG/DL (8.5-10.4); CHLORIDE, SERUM 104 MMOL/L (96-112); CO2 (CARBON DIOXIDE) 25 MMOL/L (24-34); CREATININE 6.17 MG/DL (0.70-1.30); GFR AFRICAN AMERICAN 12 ML/MIN (>=60); GFR NON AFRICAN AMERICAN 10 ML/MIN (>=60); GLUCOSE, SERUM 101 MG/DL (60-99); PHOSPHORUS, SERUM 3.7 MG/DL (2.5-4.5); POTASSIUM, SERUM 4.2 MMOL/L (3.5-5.3); SODIUM, SERUM 139 MMOL/L (135-148)
[2016-11-01 07:07] LABS: BASOPHILS 0.2 %; BASOPHILS ABSOLUTE 0.01 10/3/uL (0.0-0.16); EOSINOPHILS 3.3 %; EOSINOPHILS ABSOLUTE 0.16 10/3/uL (0.0-0.53); HEMATOCRIT 32.5 % (40.0-51.0); HEMOGLOBIN 9.4 g/dL (13.6-17.8); LYMPHOCYTES 26.9 %; LYMPHOCYTES ABSOLUTE 1.32 10/3/uL (0.67-4.30); MEAN CORPUS HGB CONC 28.9 g/dL (32.0-36.0); MEAN CORPUSCULAR HEMOGLOB 26.5 pg (26.0-34.0); MEAN CORPUSCULAR VOLUME 91.5 fL (80-100); MEAN PLATELET VOLUME 10.9 fL (9.2-13.0); MONOCYTES 14.1 %; MONOCYTES ABSOLUTE 0.69 10/3/uL (0.21-1.20); NEUTROPHILS 55.5 %; NEUTROPHILS ABSOLUTE 2.73 10/3/uL (2.02-8.40); PLATELET COUNT 216 10/3/uL (150-400); RBC DISTRIBUTION WIDTH 16.9 % (12.0-16.0); RED CELL COUNT 3.55 10/6/uL (4.7-6.1); WHITE BLOOD CELLS 4.9 10/3/uL (4.5-10.5)
[2016-11-01 07:08] LABS: MANUAL DIFF NO %
[2016-11-01 07:22] LABS: ALBUMIN 2.8 G/DL (3.5-5.0); BUN (BLOOD UREA NITROGEN) 33 MG/DL (6-23); CALCIUM, SERUM 8.6 MG/DL (8.5-10.4); CHLORIDE, SERUM 102 MMOL/L (96-112); CO2 (CARBON DIOXIDE) 22 MMOL/L (24-34); CREATININE 6.38 MG/DL (0.70-1.30); GFR AFRICAN AMERICAN 11 ML/MIN (>=60); GFR NON AFRICAN AMERICAN 10 ML/MIN (>=60); GLUCOSE, SERUM 73 MG/DL (60-99); PHOSPHORUS, SERUM 3.7 MG/DL (2.5-4.5); POTASSIUM, SERUM 5.1 MMOL/L (3.5-5.3); SODIUM, SERUM 138 MMOL/L (135-148)
[2016-11-03 16:42] LABS: BASOPHILS 0.4 %; BASOPHILS ABSOLUTE 0.02 10/3/uL (0.0-0.16); EOSINOPHILS 5.5 %; EOSINOPHILS ABSOLUTE 0.25 10/3/uL (0.0-0.53); HEMATOCRIT 28.7 % (40.0-51.0); HEMOGLOBIN 8.6 g/dL (13.6-17.8); IMMATURE GRANULOCYTES 0.4 %; IMMATURE GRANULOCYTES ABSOLUTE 0.02 10/3/uL (0.0-0.11); LYMPHOCYTES 23.6 %; LYMPHOCYTES ABSOLUTE 1.08 10/3/uL (0.67-4.30); MANUAL DIFF NO %; MEAN CORPUSCULAR HEMOGLOB 26.2 pg (26.0-34.0); MEAN CORPUSCULAR VOLUME 87.5 fL (80-100); MEAN PLATELET VOLUME 10.4 fL (9.2-13.0); MONOCYTES 10.3 %; MONOCYTES ABSOLUTE 0.47 10/3/uL (0.21-1.20); NEUTROPHILS 59.8 %; NEUTROPHILS ABSOLUTE 2.74 10/3/uL (2.02-8.40); PLATELET COUNT 210 10/3/uL (150-400); RBC DISTRIBUTION WIDTH 16.7 % (12.0-16.0); RED CELL COUNT 3.28 10/6/uL (4.7-6.1); WHITE BLOOD CELLS 4.6 10/3/uL (4.5-10.5)
[2016-11-03 16:54] LABS: ALBUMIN 2.6 G/DL (3.5-5.0); CALCIUM, SERUM 7.9 MG/DL (8.5-10.4); CHLORIDE, SERUM 96 MMOL/L (96-112); CO2 (CARBON DIOXIDE) 25 MMOL/L (24-34); PHOSPHORUS, SERUM 4.2 MG/DL (2.5-4.5); POTASSIUM, SERUM 5.3 MMOL/L (3.5-5.3); SODIUM, SERUM 133 MMOL/L (135-148)
[2016-11-03 16:55] LABS: BUN (BLOOD UREA NITROGEN) 67 MG/DL (6-23); CREATININE 9.96 MG/DL (0.70-1.30); GFR AFRICAN AMERICAN 7 ML/MIN (>=60); GFR NON AFRICAN AMERICAN 6 ML/MIN (>=60); GLUCOSE, SERUM 88 MG/DL (60-99)
[2016-11-04 08:24] LABS: BASOPHILS 0.8 %; BASOPHILS ABSOLUTE 0.03 10/3/uL (0.0-0.16); EOSINOPHILS 6.7 %; EOSINOPHILS ABSOLUTE 0.25 10/3/uL (0.0-0.53); HEMATOCRIT 30.8 % (40.0-51.0); HEMOGLOBIN 8.9 g/dL (13.6-17.8); IMMATURE GRANULOCYTES 0.3 %; IMMATURE GRANULOCYTES ABSOLUTE 0.01 10/3/uL (0.0-0.11); LYMPHOCYTES 25.9 %; LYMPHOCYTES ABSOLUTE 0.96 10/3/uL (0.67-4.30); MEAN CORPUS HGB CONC 28.9 g/dL (32.0-36.0); MEAN CORPUSCULAR HEMOGLOB 26.2 pg (26.0-34.0); MEAN PLATELET VOLUME 9.2 fL (9.2-13.0); MONOCYTES 8.1 %; NEUTROPHILS 58.2 %; NEUTROPHILS ABSOLUTE 2.16 10/3/uL (2.02-8.40); PLATELET COUNT 182 10/3/uL (150-400); RBC DISTRIBUTION WIDTH 17.1 % (12.0-16.0); WHITE BLOOD CELLS 3.7 10/3/uL (4.5-10.5)
[2016-11-04 08:27] LABS: MANUAL DIFF NO %; MEAN CORPUSCULAR VOLUME 90.6 fL (80-100)
[2016-11-04 08:45] LABS: ALBUMIN 2.6 G/DL (3.5-5.0); BUN (BLOOD UREA NITROGEN) 54 MG/DL (6-23); CALCIUM, SERUM 8.3 MG/DL (8.5-10.4); CHLORIDE, SERUM 101 MMOL/L (96-112); CO2 (CARBON DIOXIDE) 23 MMOL/L (24-34); CREATININE 8.12 MG/DL (0.70-1.30); GFR AFRICAN AMERICAN 8 ML/MIN (>=60); GFR NON AFRICAN AMERICAN 7 ML/MIN (>=60); GLUCOSE, SERUM 85 MG/DL (60-99); PHOSPHORUS, SERUM 4.5 MG/DL (2.5-4.5); POTASSIUM, SERUM 5.2 MMOL/L (3.5-5.3); SODIUM, SERUM 133 MMOL/L (135-148)
[2016-11-05 09:01] LABS: BASOPHILS 0.9 %; BASOPHILS ABSOLUTE 0.03 10/3/uL (0.0-0.16); EOSINOPHILS 7.3 %; EOSINOPHILS ABSOLUTE 0.24 10/3/uL (0.0-0.53); HEMATOCRIT 28.5 % (40.0-51.0); HEMOGLOBIN 8.6 g/dL (13.6-17.8); IMMATURE GRANULOCYTES 0.3 %; IMMATURE GRANULOCYTES ABSOLUTE 0.01 10/3/uL (0.0-0.11); LYMPHOCYTES 29.9 %; LYMPHOCYTES ABSOLUTE 0.98 10/3/uL (0.67-4.30); MEAN CORPUS HGB CONC 30.2 g/dL (32.0-36.0); MEAN CORPUSCULAR HEMOGLOB 26.5 pg (26.0-34.0); MEAN PLATELET VOLUME 9.9 fL (9.2-13.0); MONOCYTES ABSOLUTE 0.36 10/3/uL (0.21-1.20); NEUTROPHILS 50.6 %; NEUTROPHILS ABSOLUTE 1.66 10/3/uL (2.02-8.40); PLATELET COUNT 184 10/3/uL (150-400); RBC DISTRIBUTION WIDTH 16.8 % (12.0-16.0); RED CELL COUNT 3.24 10/6/uL (4.7-6.1); WHITE BLOOD CELLS 3.3 10/3/uL (4.5-10.5)
[2016-11-05 09:02] LABS: MANUAL DIFF NO %
[2016-11-05 09:10] LABS: ALBUMIN 2.5 G/DL (3.5-5.0); CALCIUM, SERUM 7.9 MG/DL (8.5-10.4); CHLORIDE, SERUM 98 MMOL/L (96-112); CO2 (CARBON DIOXIDE) 25 MMOL/L (24-34); GFR AFRICAN AMERICAN 7 ML/MIN (>=60); GFR NON AFRICAN AMERICAN 6 ML/MIN (>=60); GLUCOSE, SERUM 75 MG/DL (60-99); PHOSPHORUS, SERUM 4.6 MG/DL (2.5-4.5); POTASSIUM, SERUM 5.4 MMOL/L (3.5-5.3); SODIUM, SERUM 132 MMOL/L (135-148)
[2016-11-05 09:11] LABS: BUN (BLOOD UREA NITROGEN) 65 MG/DL (6-23); CREATININE 9.55 MG/DL (0.70-1.30)
[2017-02-02] MEDS ORDERED: COREG12 PO (21:50)
[2017-02-02] MEDS ORDERED: PACERONE200 MG PO (21:50)
[2017-02-02] MEDS ORDERED: PERCOCET 10/3251 TAB PO (21:52)
[2017-02-02] MEDS ORDERED: TUMSROLL PO (21:52)
[2017-02-04] MEDS ORDERED: PEP20 PO (17:17)
[2017-02-04] MEDS ORDERED: ASA5GR PO (17:17)
[2017-02-04] MEDS ORDERED: LIPITOR40 PO (17:17)
[2017-02-04] MEDS ORDERED: VENTOLIN HFA INH (17:20)
[2017-03-22] MEDS ORDERED: PROAIR HFA INH (18:04)
[2017-05-10] MEDS ORDERED: TUMSROLL PO (11:37)
[2017-05-10] MEDS ORDERED: COREG3 PO (11:37)
[2017-05-10] MEDS ORDERED: ASA5GR PO (11:37)
== END 2016-11-05 18:28 | DRG 853 ==
LOC: ER 10:47 → MIC 13:09 → IMCU 10-23 23:33 → 1SO 10-26 11:40
PROVIDERS: Anesthesiology; Emergency Medicine; Internal Medicine Critical Care Medicine; Internal Medicine Infectious Disease; Internal Medicine Nephrology; Internal Medicine Pulmonary Disease; Nurse Practitioner; Orthopaedic Surgery; Registered Nurse; Surgery
PROC: 5A1D60Z (ICD-10-PCS; 2016-10-11)
PROC: 0S9D30Z Drainage of Left Knee Joint with Drainage Device, Percutaneous Approach (ICD-10-PCS; principal; 2016-10-12)
PROC: 0S9G3ZX Drainage of Left Ankle Joint, Percutaneous Approach, Diagnostic (ICD-10-PCS; 2016-10-12)
PROC: 02HV33Z Insertion of Infusion Device into Superior Vena Cava, Percutaneous Approach (ICD-10-PCS; 2016-10-12)
PROC: 4A02X4A Measurement of Cardiac Electrical Activity, Guidance, External Approach (ICD-10-PCS; 2016-10-12)
PROC: 0SBD0ZZ Excision of Left Knee Joint, Open Approach (ICD-10-PCS; 2016-10-13)
PROC: 0BH17EZ Insertion of Endotracheal Airway into Trachea, Via Natural or Artificial Opening (ICD-10-PCS; 2016-10-13)
PROC: 5A09457 Assistance with Respiratory Ventilation, 24-96 Consecutive Hours, Continuous Positive Airway Pressure (ICD-10-PCS; 2016-10-13)
PROC: 3E0G76Z Introduction of Nutritional Substance into Upper GI, Via Natural or Artificial Opening (ICD-10-PCS; 2016-10-14)
PROC: 0KB80ZZ Excision of Left Upper Arm Muscle, Open Approach (ICD-10-PCS; 2016-10-19)
PROC: 05H633Z Insertion of Infusion Device into Left Subclavian Vein, Percutaneous Approach (ICD-10-PCS; 2016-10-19)
PROC: B5171ZA Fluoroscopy of Left Subclavian Vein using Low Osmolar Contrast, Guidance (ICD-10-PCS; 2016-10-19)
PROC: 30233N1 Transfusion of Nonautologous Red Blood Cells into Peripheral Vein, Percutaneous Approach (ICD-10-PCS; 2016-10-19)
PROC: 0SBD4ZZ Excision of Left Knee Joint, Percutaneous Endoscopic Approach (ICD-10-PCS; 2016-10-19 21:10)
PROC: 05L80ZZ Occlusion of Left Axillary Vein, Open Approach (ICD-10-PCS; 2016-10-19 21:10)
PROC: 0JQF3ZZ Repair Left Upper Arm Subcutaneous Tissue and Fascia, Percutaneous Approach (ICD-10-PCS; 2016-10-21)
PROC: 05HM33Z Insertion of Infusion Device into Right Internal Jugular Vein, Percutaneous Approach (ICD-10-PCS; 2016-10-31)
PROC: B5131ZA Fluoroscopy of Right Jugular Veins using Low Osmolar Contrast, Guidance (ICD-10-PCS; 2016-10-31)
DX: A41.02 Sepsis due to Methicillin resistant Staphylococcus aureus (principal); N18.6 End stage renal disease; R65.21 Severe sepsis with septic shock; G93.40 Encephalopathy, unspecified; J96.01 Acute respiratory failure with hypoxia; J96.02 Acute respiratory failure with hypercapnia; M00.9 Pyogenic arthritis, unspecified; I12.0 Hypertensive chronic kidney disease with stage 5 chronic kidney disease or end stage renal disease; I42.8 Other cardiomyopathies; D69.59 Other secondary thrombocytopenia; D62 Acute posthemorrhagic anemia; E87.2 Acidosis; T82.7XXA Infection and inflammatory reaction due to other cardiac and vascular devices, implants and grafts, initial encounter; I48.92 Unspecified atrial flutter; T82.838A Hemorrhage due to vascular prosthetic devices, implants and grafts, initial encounter; K56.0 Paralytic ileus; G47.33 Obstructive sleep apnea (adult) (pediatric); E03.9 Hypothyroidism, unspecified; D63.1 Anemia in chronic kidney disease; Z68.37 Body mass index [BMI] 37.0-37.9, adult; E66.01 Morbid (severe) obesity due to excess calories; Y83.8 Other surgical procedures as the cause of abnormal reaction of the patient, or of later complication, without mention of misadventure at the time of the procedure; I44.7 Left bundle-branch block, unspecified; Z99.81 Dependence on supplemental oxygen; E87.70 Fluid overload, unspecified; E21.3 Hyperparathyroidism, unspecified; M85.862 Other specified disorders of bone density and structure, left lower leg; E87.5 Hyperkalemia; I48.91 Unspecified atrial fibrillation; M25.462 Effusion, left knee; I73.9 Peripheral vascular disease, unspecified; H54.42 Blindness, left eye, normal vision right eye; M10.9 Gout, unspecified; Z99.2 Dependence on renal dialysis; Z86.73 Personal history of transient ischemic attack (TIA), and cerebral infarction without residual deficits; Z90.49 Acquired absence of other specified parts of digestive tract; Z79.82 Long term (current) use of aspirin; Z79.899 Other long term (current) drug therapy; Z88.5 Allergy status to narcotic agent; Z88.8 Allergy status to other drugs, medicaments and biological substances; Z91.030 Bee allergy status; Z91.013 Allergy to seafood; I25.2 Old myocardial infarction; E78.00 Pure hypercholesterolemia, unspecified; I25.10 Atherosclerotic heart disease of native coronary artery without angina pectoris; F32.9 Major depressive disorder, single episode, unspecified; Z98.890 Other specified postprocedural states
CPT/HCPCS: 11043; 20610; 31720; 36415; 36556; 36558; 36569; 36600; 37607; 71010; 71275; 72148; 73560-LT; 73610-LT; 73718-RT; 74000; 77001; 80048; 80053; 80069; 80076; 80202; 80305; 80307; 82140; 82310; 82330; 82533; 82550; 82553; 82803; 82805; 82947; 82962; 83540; 83550; 83605; 83735; 83880; 84100; 84132; 84134; 84145; 84295; 84439; 84443; 84484; 84550; 85014; 85018; 85025; 85610; 85652; 85730; 86850; 86900; 86901; 86920; 87015; 87040; 87070; 87075; 87077; 87102; 87116; 87150; 87186; 87205; 87493; 87493-59; 87641; 87804; 89051; 93005; 94002; 94003; 94640; 94660; 96365; 96366; 96368; 96375; 96376; 97110-GP; 97162-GP; 97164-GP; 97530-GP; 97605; 99285; 99291; A9270-GY; C1750; C1769; C8929; G0257; G0378; G8978-CK-GP; G8978-CL-GP; G8978-CM-GP; G8979-CI-GP; G8979-CK-GP; G8979-CL-GP; J0282; J0330; J0885; J1160; J1170; J1630; J1940; J2250; J2370; J2405; J2543; J2765; J2916; J3010; J3370; P9016; P9045; P9047; Q9957; Q9967

== ENCOUNTER 2016-11-26 11:46 | Inpatient (IN) | payer MEDICARE, OTHER ==
--- NOTE | ~2016-11-26 | OP ---
Record Of Operation [facility] [address] [place]. [address] NAME: MARLENE ZAMORA : 74 STATUS : ADM IN [facility]#: [id number] AGE: 46 ADM/REG DATE : 11/26/16 MR#: [id number] REPORT SERV DATE: 11/28/16 DICTATED BY: ADRIANO MENDOZA JR. DATE: 11/28/16 REPORT STATUS : Draft TRANSCRIBED BY: MODL DATE: 11/28/16 DATE OF PROCEDURE: 11/28/2016 PREOPERATIVE DIAGNOSIS: Postoperative bleeding and left arm wound. POSTOPERATIVE DIAGNOSIS: Postoperative bleeding and left arm wound. OPERATION: Exploration of left arm wound, cauterization of several minor venous bleeders. SURGEON: Adriano Mendoza M.D. VASCULAR FELLOW: Yvette Garcia M.D. HISTORY: This is a 46-year-old, black male on dialysis who had a remnant of an access graft removed two days ago. At that time, there was a question of whether he had an abscess or hematoma. In the meantime, cultures have been negative. He has been oozing for two days on the floor. His wound was left open because there was concern over infection two days ago. It was felt that he deserved exploration today. PROCEDURE: The patient was placed on operating table. Left arm was prepped and draped in the usual sterile manner. 0.5% Marcaine plain was injected in the wound. The wound was then opened. Several minor venous bleeders were identified. Hematoma was removed. The wound was thoroughly irrigated. The wound was then closed with 3-0 nylon. The patient tolerated procedure well, taken back to recovery room in fair condition. No intraoperative complications. ESTIMATED BLOOD LOSS: Negligible. DF/MODL Adriano Mendoza Jr., M.D. / [id number] CC: Mani Zhang M.D.
--- NOTE | ~2016-11-26 | DS ---
Discharge Summary [facility] [address] [facility] [place]. [address] NAME: MARLENE CLAY : 74 STATUS : DIS IN PAT#: [id number] AGE: 46 ADM/REG DATE : 11/26/16 MR#: [id number] REPORT SERV DATE: 12/01/16 DICTATED BY: REZA FAN DATE: 11/30/16 REPORT STATUS : Draft TRANSCRIBED BY: MODL DATE: 11/30/16 ADMISSION DATE: 11/26/2016 DISCHARGE DATE: 11/30/2016 INDICATION FOR HOSPITALIZATION: Swelling of surgical wound after left upper extremity resection of infected AV graft. DISCHARGE DIAGNOSES: 1. Complex mass at site of wound, left upper extremity graft resection, status post exploration and cauterization of several mild vessel bleeders by Dr. Mendoza on 11/28/2016. Postop, the patient did well with little to no bleeding after packing, and packing was removed with formal closure of the wound. 2. End-stage renal disease, dialyzing Thursday, Thursday, and Thursday at [place] [address]. 3. Hypertension. 4. Atrial fibrillation. 5. Nonischemic cardiomyopathy. 6. Obstructive sleep apnea. 7. Anemia. 8. Hypothyroidism. 9. Hypocalcemia following parathyroidectomy. 10.History of peptic ulcer disease. 11.Recent methicillin-resistant Staph aureus infection. 12.Septic bursitis, left knee, status post arthroscopic debridement and irrigation. 13.Left upper extremity access infection with abscess and rupture, requiring complete removal of left upper extremity graft by Dr. Mendoza on 10/20/2016. HOSPITAL COURSE: Mr. 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 He had previously developed septic arthritis of his left knee and subsequently was admitted in September 2016 with infected left upper extremity AV graft. The graft ruptured prompting acute/emergent surgical intervention for complete ligation of the graft. He has subsequently had procedures on wound and wound closure, and he is admitted at this time with dilatation of the surgical wound site. The patient underwent evaluation by Vascular Surgery, and Dr. Alfred obtained a Doppler of the left upper extremity which demonstrated a 4.3 x 3.4 cm complex mass suggestive of hematoma. The patient subsequently underwent surgical intervention on 11/28/2016 with exploration of the left arm wound and cauterization of several minor venous bleeders. Postoperatively, the site was monitored closely by Surgery, and there was no significant oozing or bleeding. He was felt stable for release. Surgical cultures demonstrated no growth. He completed his prior antibiotic/vancomycin for his septic left knee. His labs at time of discharge, hemoglobin was 8.0, WBC 4.4, and platelet count 134. Potassium 4.4, creatinine 10, phosphorus 4.3, and calcium 7.9. FOLLOWUP: He will follow up on dialysis as scheduled. He will follow up with Surgery in 2 to 3 weeks. Activity will be per surgical recommendations. Wound care and dressing is per Discharge Summary [address] [address] NAME: MARLENE CLAY : 74 STATUS : DIS IN PAT#: [id number] AGE: 46 ADM/REG DATE : 11/26/16 MR#: [id number] REPORT SERV DATE: 12/01/16 DICTATED BY: REZA FAN DATE: 11/30/16 REPORT STATUS : Draft TRANSCRIBED BY: MONA DATE: 11/30/16 outlined care by Surgery. Follow up with hemodialysis as scheduled. DISCHARGE MEDICATIONS: 1. Calcium carbonate 1000 mg p.o. with meals and 2000 mg at bedtime. 2. Albuterol nebulizer 0.5 mL solution p.r.n. shortness of breath. 3. Marina aspirin 500 mg 1 p.o. daily. 4. Diltiazem 30 mg p.o. 3 times daily. 5. Lortab q.6 h. p.r.n. pain, dispensed 28, no refills. DIET: Diet will be renal diet, 1500 mL fluid restriction per day. CG/MONA Reza Fan M.D. / [id number] CC: Mani Zhang M.D.
--- NOTE | ~2016-11-26 | HP ---
History And Physical [address] [facility] [place]. [address] NAME: MARLENE ZAMORA : 74 STATUS : ADM IN [facility]#: [id number] AGE: 46 ADM/REG DATE : 11/26/16 MR#: [id number] REPORT SERV DATE: 11/26/16 DICTATED BY: MANI ZHANG DATE: 11/26/16 REPORT STATUS : Draft TRANSCRIBED BY: MODAnt DATE: 11/26/16 DATE OF ADMISSION: 11/26/2016 CHIEF COMPLAINT: Dilatation of surgical wound in his left upper extremity status post resection of a left upper AV graft. HISTORY OF PRESENT ILLNESS: The patient is a 46-year-old, male with significant past medical history of end-stage renal disease, hypertension, left bundle branch block, nonischemic cardiomyopathy (ejection fraction 40% to 45%), CLIFF hypothyroidism who presented with increasing dilatation at the site of resection of left upper AV graft. The patient recently had a prolonged hospitalization from September 2016 to October 2016 associated with MRSA sepsis. He did have a septic left knee and an abscess in his left upper AV graft. The primary source of his MRSA infection is not known to me at this time. For his left septic knee, Dr. Caballero completed an irrigation and debridement. There is a partial medial meniscectomy along with chondroplasty, the medial tibial articular surface on 10/13/2016. The patient also was noted to have a ruptured abscesses (pseudo aneurysm) to his left upper AV graft which required urgent surgery by Dr. Alfred at the end of July 2017. The patient required a prolonged hospitalization with multiple interventions as noted above, placed on vancomycin and was discharged on this medication. Duration of this medications is not known to me at this time. The patient notes dilatation of his distal left arm at the location of his surgical wound site of his left upper AV graft resection. PAST MEDICAL/PAST SURGICAL HISTORY: As noted above in HPI. SOCIAL HISTORY: No recreational drugs or alcohol. MEDICATIONS: Include lisinopril, Ativan, HCTZ, Dilaudid, crayfish. Home medications include albuterol p.r.n., aspirin, and calcium carbonate. REVIEW OF SYSTEMS: Complete review of systems done negative, otherwise stated in HPI. PHYSICAL EXAMINATION: VITAL SIGNS: His temperature is 98.5, pulse is in the 120s, blood pressure is 116/119. GENERAL: He is in mild distress, needing to go back to surgery. NEUROLOGIC: He is alert and oriented x3. Gross motor intact. SKIN: No petechiae or purpura. EXTREMITIES: Near the surgical distal site of his left upper AV graft site, there is a dilatation. No erythema, no pus drainage. It is not pulsatile. HEENT: Normocephalic. NECK: No JVD. +2 carotid pulses. CARDIOVASCULAR: Regular rate and rhythm. ABDOMEN: Soft, nontender, nondistended. Positive bowel sounds. EXTREMITIES: No peripheral edema. History And Physical [address] [place]. [address] NAME: MARLENE ZAMORA : 74 STATUS : ADM IN [facility]#: [id number] AGE: 46 ADM/REG DATE : 11/26/16 MR#: [id number] REPORT SERV DATE: 11/26/16 DICTATED BY: MANI ZHANG. DATE: 11/26/16 REPORT STATUS : Draft TRANSCRIBED BY: MODAnt DATE: 11/26/16 LABS: Sodium is 138, potassium 4.5, chloride 101, CO2 of 22. White blood cell count is 5.6, hemoglobin 11.0, platelets are 165. INR is pending. IMAGING: None. ASSESSMENT: 1. Dilatation of the distal left upper extremity at old AV graft site. The patient has a history of a left upper AV graft with a ruptured pseudoaneurysm abscess with surgery done at the end of September 2016. 2. History of sepsis with MRSA with known left knee septic knee and left upper AV graft abscess in September 2016. 3. End-stage renal disease. 4. Anemia. PLAN: 1. Vascular surgery. 2. Vancomycin. Consider Infectious Disease consult. Follow blood cultures. Follow left knee. 3. Hemodialysis on 11/27/2016. 4. Home and p.r.n. medications. SGG/MODL Mani Zhang M.D. / [id number] CC: Mani Zhang M.D.
--- NOTE | ~2016-11-26 | OP ---
Record Of Operation [facility] [address] [place]. [address] NAME: MARLENE ZAMORA : 74 STATUS : ADM IN [facility]#: [id number] AGE: 46 ADM/REG DATE : 11/26/16 MR#: [id number] REPORT SERV DATE: 11/26/16 DICTATED BY: ADRIANO MENDOZA JR. DATE: 11/26/16 REPORT STATUS : Draft TRANSCRIBED BY: MODL DATE: 11/26/16 DATE OF PROCEDURE: 11/26/2016 PREOPERATIVE DIAGNOSIS: Left arm abscess versus hematoma. POSTOPERATIVE DIAGNOSIS: Left arm abscess versus hematoma. OPERATION: Complete removal of access graft from its attachment to the brachial artery, brachial to brachial artery primary anastomosis. SURGEON: Adriano Mendoza M.D. HISTORY: This is a 46-year-old black male who was admitted to the hospital approximately one month ago, at which time, he had Staph sepsis and frankly ruptured an access graft in his left arm. He was taken to the operating room hypotensive that night. The graft in his left arm was ligated. The stump of the graft was left attached to the brachial artery. He ultimately got over his Staph sepsis and went home. He came back to the emergency room today with what appeared to be an abscess over the residual stump of the graft attached to his brachial artery. DESCRIPTION OF PROCEDURE: The patient was placed on the operating room table. He underwent general endotracheal anesthetic. Left arm was prepped and draped in the usual sterile manner. I made an incision through the previous incision to go down to the anastomosis between the access graft and the brachial artery. The brachial artery was dissected out proximally and distally through this anastomosis. I then used an 11 blade to cut the Prolene suture line lifting the graft off the artery. At this point in time, the patient had no left radial pulse which was present previously. I then cut the artery completely into. I freed up the artery. I then sewed the brachial artery back to the brachial artery as a primary anastomosis using a running 6-0 Prolene suture. The clamps were removed, this allowed a radial pulse to return. I then freed up the graft in this incision. It was then washed out. The skin was then closed loosely over the arterial anastomosis. I then went more proximal in the upper arm where the hematoma/abscess was. This cavity was then opened and the graft was lifted out. The cavity was then debrided. The graft and hematoma contents were submitted for culture. This appeared to be more of a hematoma than it was an abscess. This wound was then packed open with a 4 x 4. The patient tolerated the procedure well, taken back to recovery room in fair condition. There were no intraoperative complications. ESTIMATED BLOOD LOSS: 200 mL. DF/MODL Adriano Record Of [address] [address] NAME: MARLENE ZAMORA : 74 STATUS : ADM IN [facility]#: [id number] AGE: 46 ADM/REG DATE : 11/26/16 MR#: [id number] REPORT SERV DATE: 11/26/16 DICTATED BY: ADRIANO MENDOZA JR. DATE: 11/26/16 REPORT STATUS : Draft TRANSCRIBED BY: MODL DATE: 11/26/16 Reji Stephens M.D. / [id number] CC: Mani Zhang M.D.
[~2016-11-26 11:46] MED LIST changes: +UNKNOWN MEDICATION IV
[2016-11-26 13:22] LABS: BASOPHILS 0.2 %; BASOPHILS ABSOLUTE 0.01 10/3/uL (0.0-0.16); EOSINOPHILS 5.7 %; EOSINOPHILS ABSOLUTE 0.32 10/3/uL (0.0-0.53); HEMATOCRIT 35.4 % (40.0-51.0); LYMPHOCYTES 24.6 %; LYMPHOCYTES ABSOLUTE 1.39 10/3/uL (0.67-4.30); MEAN CORPUS HGB CONC 31.1 g/dL (32.0-36.0); MEAN CORPUSCULAR HEMOGLOB 26.6 pg (26.0-34.0); MEAN CORPUSCULAR VOLUME 85.5 fL (80-100); MONOCYTES 8.9 %; NEUTROPHILS 60.6 %; NEUTROPHILS ABSOLUTE 3.42 10/3/uL (2.02-8.40); PLATELET COUNT 165 10/3/uL (150-400); RBC DISTRIBUTION WIDTH 18.8 % (12.0-16.0); RED CELL COUNT 4.14 10/6/uL (4.7-6.1)
[2016-11-26 13:23] LABS: ER CBC TAT 0 Hrs 07 Mins; MANUAL DIFF NO %; WHITE BLOOD CELLS 5.6 10/3/uL (4.5-10.5)
[2016-11-26 13:39] LABS: ANISOCYTOSIS 1+ (5-10/OIF) (0-5/OIF); PLATELET ESTIMATE ADQ (ADEQUATE)
[2016-11-26 13:41] LABS: LACTATE 1.2 MMOL/L (0.3-2.4)
[2016-11-26 14:50] LABS: BUN (BLOOD UREA NITROGEN) 46 MG/DL (6-23); CALCIUM, SERUM 7.5 MG/DL (8.5-10.4); CHLORIDE, SERUM 101 MMOL/L (96-112); CO2 (CARBON DIOXIDE) 22 MMOL/L (24-34); GFR AFRICAN AMERICAN 6 ML/MIN (>=60); GFR NON AFRICAN AMERICAN 6 ML/MIN (>=60); GLUCOSE, SERUM 67 MG/DL (60-99); POTASSIUM, SERUM 4.5 MMOL/L (3.5-5.3); SODIUM, SERUM 138 MMOL/L (135-148)
[2016-11-26] MEDS ORDERED: BAYER500 MG PO (15:56)
[2016-11-27 09:23] LABS: BASOPHILS 0.1 %; BASOPHILS ABSOLUTE 0.01 10/3/uL (0.0-0.16); EOSINOPHILS 3.2 %; EOSINOPHILS ABSOLUTE 0.23 10/3/uL (0.0-0.53); HEMATOCRIT 32.6 % (40.0-51.0); HEMOGLOBIN 9.9 g/dL (13.6-17.8); IMMATURE GRANULOCYTES 0.1 %; IMMATURE GRANULOCYTES ABSOLUTE 0.01 10/3/uL (0.0-0.11); LYMPHOCYTES 13.8 %; MEAN CORPUS HGB CONC 30.4 g/dL (32.0-36.0); MEAN CORPUSCULAR HEMOGLOB 26.1 pg (26.0-34.0); MONOCYTES 11.2 %; MONOCYTES ABSOLUTE 0.81 10/3/uL (0.21-1.20); NEUTROPHILS 71.6 %; PLATELET COUNT 174 10/3/uL (150-400); RBC DISTRIBUTION WIDTH 18.3 % (12.0-16.0); RED CELL COUNT 3.79 10/6/uL (4.7-6.1); WHITE BLOOD CELLS 7.3 10/3/uL (4.5-10.5)
[2016-11-27 09:25] LABS: MANUAL DIFF NO %
[2016-11-27 09:38] LABS: CALCIUM, SERUM 7.2 MG/DL (8.5-10.4); CHLORIDE, SERUM 99 MMOL/L (96-112); CO2 (CARBON DIOXIDE) 23 MMOL/L (24-34); GFR AFRICAN AMERICAN 6 ML/MIN (>=60); GFR NON AFRICAN AMERICAN 5 ML/MIN (>=60); GLUCOSE, SERUM 70 MG/DL (60-99); POTASSIUM, SERUM 5.2 MMOL/L (3.5-5.3); SODIUM, SERUM 136 MMOL/L (135-148)
[2016-11-27 09:43] LABS: BUN (BLOOD UREA NITROGEN) 55 MG/DL (6-23)
[2016-11-27 10:06] LABS: ANISOCYTOSIS 1+ (5-10/OIF) (0-5/OIF); HYPOCHROMIA 1+ (3-10/OIF) (0-2/OIF); PLATELET ESTIMATE ADQ (ADEQUATE)
[2016-11-27 10:07] LABS: MACROCYTES 1+ (5-10/OIF) (0-5/OIF); POLYCHROMASIA 1+ (2-5/OIF) (0-1/OIF)
[2016-11-28 04:54] LABS: BASOPHILS 0.2 %; BASOPHILS ABSOLUTE 0.01 10/3/uL (0.0-0.16); EOSINOPHILS 6.2 %; EOSINOPHILS ABSOLUTE 0.28 10/3/uL (0.0-0.53); HEMATOCRIT 32.3 % (40.0-51.0); HEMOGLOBIN 9.6 g/dL (13.6-17.8); IMMATURE GRANULOCYTES 0.2 %; IMMATURE GRANULOCYTES ABSOLUTE 0.01 10/3/uL (0.0-0.11); LYMPHOCYTES 26.9 %; LYMPHOCYTES ABSOLUTE 1.21 10/3/uL (0.67-4.30); MEAN CORPUS HGB CONC 29.7 g/dL (32.0-36.0); MEAN CORPUSCULAR VOLUME 87.5 fL (80-100); MEAN PLATELET VOLUME 10.4 fL (9.2-13.0); MONOCYTES 11.6 %; MONOCYTES ABSOLUTE 0.52 10/3/uL (0.21-1.20); NEUTROPHILS 54.9 %; NEUTROPHILS ABSOLUTE 2.47 10/3/uL (2.02-8.40); PLATELET COUNT 161 10/3/uL (150-400); RBC DISTRIBUTION WIDTH 18.5 % (12.0-16.0); RED CELL COUNT 3.69 10/6/uL (4.7-6.1); WHITE BLOOD CELLS 4.5 10/3/uL (4.5-10.5)
[2016-11-28 05:02] LABS: MANUAL DIFF NO %
[2016-11-28 05:05] LABS: ALBUMIN 3.1 G/DL (3.5-5.0); CALCIUM, SERUM 7.7 MG/DL (8.5-10.4); CHLORIDE, SERUM 98 MMOL/L (96-112); CO2 (CARBON DIOXIDE) 24 MMOL/L (24-34); PHOSPHORUS, SERUM 4.5 MG/DL (2.5-4.5); POTASSIUM, SERUM 4.5 MMOL/L (3.5-5.3); SODIUM, SERUM 137 MMOL/L (135-148)
[2016-11-28 05:08] LABS: BUN (BLOOD UREA NITROGEN) 41 MG/DL (6-23); GFR AFRICAN AMERICAN 7 ML/MIN (>=60); GFR NON AFRICAN AMERICAN 6 ML/MIN (>=60); GLUCOSE, SERUM 102 MG/DL (60-99)
[2016-11-29 08:02] LABS: BASOPHILS 0.3 %; BASOPHILS ABSOLUTE 0.01 10/3/uL (0.0-0.16); EOSINOPHILS 5.7 %; EOSINOPHILS ABSOLUTE 0.22 10/3/uL (0.0-0.53); HEMATOCRIT 29.2 % (40.0-51.0); HEMOGLOBIN 8.7 g/dL (13.6-17.8); IMMATURE GRANULOCYTES 0.3 %; IMMATURE GRANULOCYTES ABSOLUTE 0.01 10/3/uL (0.0-0.11); LYMPHOCYTES 28.4 %; LYMPHOCYTES ABSOLUTE 1.09 10/3/uL (0.67-4.30); MEAN CORPUS HGB CONC 29.8 g/dL (32.0-36.0); MEAN CORPUSCULAR VOLUME 87.2 fL (80-100); MEAN PLATELET VOLUME 9.6 fL (9.2-13.0); NEUTROPHILS 52.3 %; NEUTROPHILS ABSOLUTE 2.01 10/3/uL (2.02-8.40); PLATELET COUNT 155 10/3/uL (150-400); RBC DISTRIBUTION WIDTH 18.5 % (12.0-16.0); RED CELL COUNT 3.35 10/6/uL (4.7-6.1); WHITE BLOOD CELLS 3.8 10/3/uL (4.5-10.5)
[2016-11-29 08:08] LABS: MANUAL DIFF NO %
[2016-11-29 08:13] LABS: BUN (BLOOD UREA NITROGEN) 31 MG/DL (6-23); CALCIUM, SERUM 7.8 MG/DL (8.5-10.4); CHLORIDE, SERUM 100 MMOL/L (96-112); CO2 (CARBON DIOXIDE) 25 MMOL/L (24-34); GFR AFRICAN AMERICAN 8 ML/MIN (>=60); GFR NON AFRICAN AMERICAN 7 ML/MIN (>=60); GLUCOSE, SERUM 90 MG/DL (60-99); PHOSPHORUS, SERUM 3.9 MG/DL (2.5-4.5); POTASSIUM, SERUM 4.2 MMOL/L (3.5-5.3); SODIUM, SERUM 137 MMOL/L (135-148)
[2016-11-30 06:28] LABS: BASOPHILS 0.5 %; BASOPHILS ABSOLUTE 0.02 10/3/uL (0.0-0.16); EOSINOPHILS 6.7 %; EOSINOPHILS ABSOLUTE 0.29 10/3/uL (0.0-0.53); HEMATOCRIT 28.1 % (40.0-51.0); LYMPHOCYTES 37.4 %; LYMPHOCYTES ABSOLUTE 1.63 10/3/uL (0.67-4.30); MEAN CORPUS HGB CONC 28.5 g/dL (32.0-36.0); MEAN CORPUSCULAR HEMOGLOB 24.9 pg (26.0-34.0); MEAN CORPUSCULAR VOLUME 87.5 fL (80-100); MONOCYTES ABSOLUTE 0.48 10/3/uL (0.21-1.20); NEUTROPHILS 44.4 %; NEUTROPHILS ABSOLUTE 1.94 10/3/uL (2.02-8.40); PLATELET COUNT 134 10/3/uL (150-400); RBC DISTRIBUTION WIDTH 18.5 % (12.0-16.0); RED CELL COUNT 3.21 10/6/uL (4.7-6.1); WHITE BLOOD CELLS 4.4 10/3/uL (4.5-10.5)
[2016-11-30 06:41] LABS: ALBUMIN 2.9 G/DL (3.5-5.0); BUN (BLOOD UREA NITROGEN) 40 MG/DL (6-23); CALCIUM, SERUM 7.9 MG/DL (8.5-10.4); CHLORIDE, SERUM 96 MMOL/L (96-112); CO2 (CARBON DIOXIDE) 24 MMOL/L (24-34); GFR AFRICAN AMERICAN 7 ML/MIN (>=60); GFR NON AFRICAN AMERICAN 6 ML/MIN (>=60); GLUCOSE, SERUM 84 MG/DL (60-99); PHOSPHORUS, SERUM 4.3 MG/DL (2.5-4.5); POTASSIUM, SERUM 4.4 MMOL/L (3.5-5.3); SODIUM, SERUM 135 MMOL/L (135-148)
[2016-11-30 07:08] LABS: ANISOCYTOSIS 1+ (5-10/OIF) (0-5/OIF); HYPOCHROMIA 1+ (3-10/OIF) (0-2/OIF); PLATELET ESTIMATE SLT DEC (ADEQUATE)
[2016-11-30] MEDS ORDERED: CARD30 PO (10:47)
[2016-11-30] MEDS ORDERED: NORCO1 TA1 PO (10:48)
[2017-02-02] MEDS ORDERED: PACERONE200 MG PO (21:50)
[2017-02-02] MEDS ORDERED: COREG12 PO (21:50)
[2017-02-02] MEDS ORDERED: TUMSROLL PO (21:52)
[2017-02-02] MEDS ORDERED: PERCOCET 10/3251 TAB PO (21:52)
[2017-02-04] MEDS ORDERED: PEP20 PO (17:17)
[2017-02-04] MEDS ORDERED: ASA5GR PO (17:17)
[2017-02-04] MEDS ORDERED: LIPITOR40 PO (17:17)
[2017-02-04] MEDS ORDERED: VENTOLIN HFA INH (17:20)
[2017-03-22] MEDS ORDERED: PROAIR HFA INH (18:04)
[2017-05-10] MEDS ORDERED: ASA5GR PO (11:37)
[2017-05-10] MEDS ORDERED: COREG3 PO (11:37)
[2017-05-10] MEDS ORDERED: TUMSROLL PO (11:37)
== END 2016-11-30 12:24 | disposition home or self-care (01) | DRG 264 ==
LOC: ER 11:46 → 7NO 15:41
PROVIDERS: Internal Medicine Nephrology; Nurse Practitioner; Surgery
PROC: 03PY07Z Removal of Autologous Tissue Substitute from Upper Artery, Open Approach (ICD-10-PCS; principal; 2016-11-26 16:15)
PROC: 5A1D60Z (ICD-10-PCS; 2016-11-27)
PROC: 0X390ZZ Control Bleeding in Left Upper Arm, Open Approach (ICD-10-PCS; 2016-11-28)
DX: T82.7XXA Infection and inflammatory reaction due to other cardiac and vascular devices, implants and grafts, initial encounter (principal); N18.6 End stage renal disease; I12.0 Hypertensive chronic kidney disease with stage 5 chronic kidney disease or end stage renal disease; I42.9 Cardiomyopathy, unspecified; L02.414 Cutaneous abscess of left upper limb; I97.618 Postprocedural hemorrhage of a circulatory system organ or structure following other circulatory system procedure; I44.7 Left bundle-branch block, unspecified; E03.9 Hypothyroidism, unspecified; D64.9 Anemia, unspecified; K59.00 Constipation, unspecified; Y83.8 Other surgical procedures as the cause of abnormal reaction of the patient, or of later complication, without mention of misadventure at the time of the procedure; Y92.230 Patient room in hospital as the place of occurrence of the external cause; G47.33 Obstructive sleep apnea (adult) (pediatric); Z86.14 Personal history of Methicillin resistant Staphylococcus aureus infection
CPT/HCPCS: 35860; 80048; 80069; 83605; 83735; 85025; 87015; 87040; 87070; 87075; 87102; 87116; 87205; 88300; 88304; 93005; 93931; 99285; A9270-GY; G0257; J0690; J2250; J2370; J2405; J2710; J3010; J3370

== ENCOUNTER 2016-12-08 02:16 | Inpatient (IN) | payer MEDICARE, OTHER ==
--- NOTE | ~2016-12-08 | HP ---
History And Physical [id number] [place]. [address] NAME: MARLENE CLAY : 74 STATUS : ADM IN [facility]#: [id number] AGE: 46 ADM/REG DATE : 12/08/16 MR#: [id number] REPORT SERV DATE: 12/08/16 DICTATED BY: REZA FAN DATE: 12/08/16 REPORT STATUS : Draft TRANSCRIBED BY: MODL DATE: 12/08/16 DATE OF ADMISSION: 12/08/2016 INDICATION FOR ADMISSION: Shortness of breath, tachycardia. HISTORY OF PRESENT ILLNESS: Mr. Clay is a 46-year-old male, who is chronically dialyzed at [place] [address] by right IJ [facility], dialyzing Thursday, Thursday, Thursday. Apparently, he cut his time on Thursday by two hours and went to [facility]. He presented to the emergency room at [facility] with what was felt to be ventricular tachycardia and was actually shocked. His labs confirmed persistent hypocalcemia and he was hypertensive and initiated on a nitroglycerin drip. The patient was subsequently transferred to [facility]. He is maintained on a Venturi mask and apparently received some 6 g of calcium gluconate at [facility] and was also given an amp of sodium bicarb as well as Cardizem 15 mg IV push x1. He is arousable, but falls back to sleep. He was noted to have blood pressure systolics in excess of 220 upon arrival and his nitroglycerin drip has been adjusted for its control. Labs at [facility] reflect a potassium of 4.1, ionized calcium of 0.85. Presently, he is on dialysis, required for emergent volume removal. PAST MEDICAL HISTORY: End-stage renal disease, dialyzing Thursday, Thursday, Thursday at [place] [address] by right IJ PermCath, atrial fibrillation, hypertension, nonischemic cardiomyopathy, ejection fraction 40%, obstructive sleep apnea, anemia, hypothyroidism, hypocalcemia, following parathyroidectomy, history of peptic ulcer disease, methicillin- resistant Staph aureus infection with left knee bursitis, status post arthroscopic debridement and irrigation, left upper extremity access, infection with abscess and rupture, requiring complete removal of left upper extremity wrapped, underlying 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 SOCIAL HISTORY: Has been , has been incarcerated. No alcohol or tobacco use. Positive cocaine use in past. FAMILY HISTORY: Mother of cirrhosis. No history of end-stage renal disease. ALLERGIES: TO SEAFOOD, HYDROCHLOROTHIAZIDE, LORAZEPAM, LISINOPRIL. REVIEW OF SYSTEMS: Currently unable to obtain. The patient is very lethargic and difficult to arouse. PHYSICAL EXAMINATION: GENERAL: Obese male, arouses with difficulty. VITAL SIGNS: Blood pressure 223/125, temp 97.8, pulse 110, respiratory rate 40. HEENT: Eyes, no scleral icterus. Pupils reactive symmetrically. Nares patent. Throat no injection. Mucous membranes moist. NECK: No thyromegaly, masses, bruits. CHEST/LUNGS: Bilateral crackles. No wheezes, rhonchi. CARDIAC: Regular tachycardia. No gallop, rub noted, unable to appreciate murmur. ABDOMEN: Obese, normoactive bowel sounds. No hepatosplenomegaly. No masses. History And Physical [address] [address] NAME: MARLENE CLAY : 74 STATUS : ADM IN [facility]#: [id number] AGE: 46 ADM/REG DATE : 12/08/16 MR#: [id number] REPORT SERV DATE: 12/08/16 DICTATED BY: REZA FAN DATE: 12/08/16 REPORT STATUS : Draft TRANSCRIBED BY: MONA DATE: 12/08/16 /RECTAL: Not performed. EXTREMITIES: 1+ brawny edema of lower extremities. No calf tenderness. DERMIS: No rash. No skin lesions. NEUROLOGIC: Unable to evaluate. MUSCULOSKELETAL: No deformity. IMPRESSION: 1. Ventricular tachycardia versus atrial fibrillation with rapid ventricular response. 2. Volume overload. 3. End-stage renal disease, dialyzing Thursday, Thursday, Thursday by [employer] [address] 4. Accelerated hypertension. 5. Noncompliance. 6. Obstructive sleep apnea. 7. Hypothyroidism. 8. Remote cocaine use. 9. Anemia. 10.Obesity. 11.Nonischemic cardiomyopathy, ejection fraction 40%. 12.History of persistent hypocalcemia, following parathyroidectomy. 13.Recent methicillin-resistant Staphylococcus aureus, left upper extremity, AV graft infection with rupture. 14.Recent methicillin-resistant Staphylococcus aureus septic bursitis, left knee, requiring arthroscopic debridement. 15.Peptic ulcer disease. PLAN: Cardiology consult, emergent dialysis, labs. CG/MODL Reza Fan M.D. / [id number] CC: Yuval Parker DO
--- NOTE | ~2016-12-08 | DS ---
Discharge Summary [facility] [address] [place]. [address] NAME: MARLENE ZAMORA : 74 STATUS : DIS IN PAT#: [id number] AGE: 46 ADM/REG DATE : 12/08/16 MR#: [id number] REPORT SERV DATE: 12/27/16 DICTATED BY: GABBI SANDRA DATE: 12/26/16 REPORT STATUS : Draft TRANSCRIBED BY: MONA DATE: 12/26/16 Data Collection from hospitalization DISCHARGE DIAGNOSES: 1. End-stage renal disease/fluid overload. 2. Cardiomyopathy. 3. Atrial fibrillation. 4. Hematoma of the left arm. 5. Hypertension. 6. Obstructive sleep apnea. 7. Anemia. 8. Hypothyroidism. 9. Hypocalcemia. 10.History of peptic ulcer disease. 11.History of methicillin-resistant Staph aureus infection with left knee bursitis. 12.History of left upper extremity access, infection, with abscess, and rupture. 13.Remote history of cocaine use. CONSULTATIONS: 1. Yuval Parker DO. 2. Fermin Lloyd. PROCEDURES PERFORMED: None. DISCHARGE MEDICATIONS: Cordarone 400 mg twice a day, Tums 500 mg with meals, Coreg 12.5 mg twice a day as instructed, Percocet 10/325 one tablet three times a day as needed. He was instructed not to continue Proventil, aspirin, Cardizem, or oxycodone. CONDITION AT DISCHARGE: Stable. DISPOSITION: The patient was discharged home on a low-sodium, renal diet with activities as instructed. He would follow up with Dr. Rigoberto Jennings, on 01/06/2017. He would follow up with his primary care provider as needed. HOSPITAL COURSE: This is a 46-year-old man, who is chronically dialyzes on Mondays, Wednesdays, and Fridays. Apparently, he cut his time on Thursday prior to this admission by a few hours and went to [facility]. He presented to the emergency room at [facility] with what was felt to be ventricular tachycardia and was actually shocked. His last confirmed persistent hypocalcemia and he was hypertensive and initiated on nitroglycerin drip. He was subsequently transferred to [facility]. He maintained on a Venturi mask and apparently received some 6 g of calcium gluconate at [facility], and was also given an amp of sodium bicarb, as well as a dose of IV Cardizem. He was arousable, but would fall back to sleep. He was noted to have blood pressure systolic in excess of 220 upon arrival and nitroglycerin drip was adjusted for control. He was placed on dialysis for emergent volume removal. He was admitted to the hospital for further evaluation and treatment. Upon admission, an emergent dialysis was performed. He was seen by Dr. Yuval Parker. The Discharge Summary [address] [place]. [address] NAME: MARLENE ZAMORA : 74 STATUS : DIS IN PAT#: [id number] AGE: 46 ADM/REG DATE : 12/08/16 MR#: [id number] REPORT SERV DATE: 12/27/16 DICTATED BY: GABBI SANDRA DATE: 12/26/16 REPORT STATUS : Draft TRANSCRIBED BY: MONA DATE: 12/26/16 patient said he having a little bit of paresthesias in the right leg. He was currently on a Venturi mask. He was placed in the ICU. Repeat blood work would be performed to specifically look at calcium as well as other level. Parathyroid hormone and vitamin D levels were going to be checked. He was also seen by Fermin Moon. He has required a nitroglycerin drip for blood pressure control. He had received hemodialysis for volume overload. EKG here at [facility] showed irregular tachycardia at 149 beats per minute, which also appeared to be probable atrial flutter with left bundle-branch block. EKG on 12/07/2016 at [place] appear to reveal sinus tachycardia at a rate of [address]-T changes. His troponin level was 0.19. He has had a very low vitamin D level of 6. Chest x-ray showed cardiomegaly with shallow inspiration and minimal bibasilar atelectasis, but it was otherwise unremarkable. A cardiac catheterization in July had shown no significant coronary artery disease. The patient was felt to have wide complex tachycardia which was most likely atrial flutter with a left bundle-branch block. He does have a history of chronic left bundle-branch block. He has a nonischemic cardiomyopathy and hypertension. He has a history of medication noncompliance. We were going to continue amiodarone drip at this time. IV Lopressor was added for blood pressure and rate controlled. There were plans to transition him to oral beta-sudha which he should be taking anyway, but we believed he stopped this medication previously, although, we did not have an accurate home medication list at this time. Electrolytes were going to be replaced. Medical management was continued. A PICC line had been inserted. The following day. He appeared comfortable. He was on amiodarone. He had no dyspnea. He was ambulating in his room. Amiodarone and beta-sudha was changed to oral dosing. He was going to be placed on a telemetry bed. His lungs were clear. He had trace edema. Hemodialysis therapy was performed. On 12/10/2016, he had been transferred to the floor. He was receiving oral amiodarone. He was going to be transfused during hemodialysis. Hemoglobin A1c was 5.3. On 12/11/2016, he had no new complaints. We reinforced the need for compliance with hemodialysis and medications. He was in no distress. He did have paroxysmal atrial flutter. He had no significant coronary artery disease. His last left ventricular ejection fraction was 40% to 45%. He was changed to oral Cordarone. On 12/12/2016, hemodialysis therapy continued. His left ventricular ejection fraction was found to be 30%. Which had decreased since his last catheterization. The patient had not had an infarct. We would consider repeat catheterization if the patient deteriorated clinically. At this time, he had no shortness of breath or chest pain. He had trace edema. His lungs remained clear. His current cardiovascular treatment continued. On 12/14/2016, he had no complaints. He was in a normal sinus rhythm. He had 1+ edema. He did have some constipation, lactulose was given. Over the next couple of days, he had an increased shortness of breath. He had no complaints of chest pain. Discharge planning was performed. On 12/16/2016, hemodialysis therapy was performed. Discharge instructions were given. Due to his improved and stable condition, he was discharged home with the above-stated instructions. Information collected by: Rashmi Gambino I submit the above information as my discharge summary. Discharge Summary [id number] [place]. [id number] NAME: MARLENE ZAMORA : 74 STATUS : DIS IN [facility]#: [id number] AGE: 46 ADM/REG DATE : 12/08/16 MR#: [id number] REPORT SERV DATE: 12/27/16 DICTATED BY: GABBI SANDRA DATE: 12/26/16 REPORT STATUS : Draft TRANSCRIBED BY: MONA DATE: 12/26/16 TG/MONA Gabbi Sandra M.D. / [id number] CC: DO Fermin Gray, SUSHMA
--- NOTE | ~2016-12-08 | HP ---
History And Physical [place] [id number] [facility] [place]. [address] NAME: MARLENE ZAMORA : 74 STATUS : ADM IN PAT#: [id number] AGE: 46 ADM/REG DATE : 12/08/16 MR#: [id number] REPORT SERV DATE: 12/08/16 DICTATED BY: YUVAL PARKER DATE: 12/08/16 REPORT STATUS : Draft TRANSCRIBED BY: MODL DATE: 12/08/16 DATE OF ADMISSION: 12/08/2016 HISTORY OF PRESENT ILLNESS: This is a 46-year-old male, who is typically admitted by the Nephrology Service on recent admissions to our hospital, but we are asked by Nephrology to admit the patient today. This gentleman has a history of end-stage renal disease. He arrives to the hospital because of weakness and knowing that he was volume overloaded. He cut his Thursday dialysis session off by a couple of hours because he was going to [employer]. He came back and presents to the emergency room at [facility]. He was thought to be in a ventricular tachycardia at the outlying ER and was shocked once with 360 joules. His labs show that he had hypocalcemia with ionized calcium of 0.85, and apparently, he was hypertensive at the ER and they started him on a nitroglycerin drip. The patient states that he was having a little bit of paresthesias in his right leg, but no other tight knee or other muscle twitching. He is currently on a Venturi mask at our facility, as he was transferred over to us. At the emergency room at [facility], he was given a total of 6 g of calcium gluconate. He also incidentally was given 1 amp of sodium bicarb and giving an IV push of Cardizem 15 mg x1, and he arrives at our facility on the nitroglycerin drip. REVIEW OF SYSTEMS: Denies any fever, chills, chest pain, cough. He is mildly short of breath. No abdominal pain. The patient does not really make any urine at baseline. PAST MEDICAL HISTORY: Recent explant of left arm AV graft from infection, end-stage renal disease, hypertension, left bundle branch block, nonischemic cardiomyopathy with EF 40% to 45%, CLIFF, hypothyroidism, septic left knee, history of hypocalcemia after parathyroidectomy, peptic ulcer disease. SOCIAL HISTORY: No drugs or alcohol. HOME MEDICATIONS: Awaiting medicine reconciliation. PHYSICAL EXAMINATION: VITAL SIGNS: Per nursing flow sheet. GENERAL: No acute distress. NEURO: GCS 15. HEENT: Normocephalic, atraumatic. Pupils are equal and reactive. NECK: Trachea midline. HEART: Tachycardic, but regular. Appears to have little bit of a widened QRS. LUNGS: Clear anteriorly. No wheezes. Somewhat tachypneic on a Venturi mask. GI: Soft, nontender, nondistended. MUSCULOSKELETAL: Has a left arm bandage over previous AV fistula that was explanted. EXTREMITIES: No significant edema of the legs. SKIN: No obvious rash. ASSESSMENT AND PLAN: History And Physical [address] [address] NAME: MARLENE ZAMORA : 74 STATUS : ADM IN [facility]#: [id number] AGE: 46 ADM/REG DATE : 12/08/16 MR#: [id number] REPORT SERV DATE: 12/08/16 DICTATED BY: YUVAL PARKER DATE: 12/08/16 REPORT STATUS : Draft TRANSCRIBED BY: MODL DATE: 12/08/16 1. End-stage renal disease. 2. Pulmonary edema. 3. Hypocalcemia. 4. Left bundle-branch block. 5. Plus/minus ventricular tachycardia. The patient is admitted to the ICU. We will get repeat blood work to specifically look at calcium as well as other levels. Also, we will check parathyroid hormone, vitamin D levels. Nephrology will be consulted and they were discussed with overnight and recently. They plan on dialyzing him this morning. We will follow up on chest x-ray today as well. CEP/MODL Yuval Parker DO / [id number] CC: Yuval Parker DO
--- NOTE | ~2016-12-08 | CN ---
Consultation Report [facility] [address] [place]. [address] NAME: MARLENE ZAMORA : 74 STATUS : ADM IN PAT#: [id number] AGE: 46 ADM/REG DATE : 12/08/16 MR#: [id number] REPORT SERV DATE: 12/08/16 DICTATED BY: JOSIAH LLOYD DATE: 12/08/16 REPORT STATUS : Draft TRANSCRIBED BY: MODL DATE: 12/08/16 CARDIOLOGY CONSULTATION DATE OF CONSULTATION: 12/08/2016 HISTORY OF PRESENT ILLNESS: The patient is a 46-year-old, male, on chronic hemodialysis, who has a history of nonischemic cardiomyopathy. He apparently cut his dialysis short about 2 hours on Thursday and while on a trip to [facility]. He returned from his trip and presented to [facility] Emergency Department with complaints of weakness and shortness of breath. He was noted to be tachycardic at that time, and it was felt to be ventricular tachycardia. The patient received a synchronized shock at 360 joules and then had a brief run of narrow-complex rhythm and subsequently was given diltiazem with no real changes. Labs showed low calcium and after 2 g of IV calcium gluconate, he converted to sinus tachycardia per the records from [facility]. He was subsequently transferred here to [facility] for admission and further treatment. He has been hypertensive here as well as tachycardic and was started on amiodarone drip with improvement noted in his heart rate. He is lethargic but is arousable. He is currently not in distress on a Venturi mask. He has required a nitroglycerin drip for blood pressure control. The patient received hemodialysis for volume overload. PAST MEDICAL HISTORY: Includes end-stage renal disease, atrial fibrillation, nonischemic cardiomyopathy with an ejection fraction of around 40% to 45%, hypertension, obstructive sleep apnea, chronic anemia, hypothyroidism, hypocalcemia following parathyroidectomy, history peptic ulcer disease as well as Staph infection with left knee bursitis, status post previous debridement and irrigation on a recent admission. The patient also has a history of noncompliance with his medications and treatment. SOCIAL HISTORY: The patient has been previously incarcerated. He has a remote history of cocaine use but none reported currently. He does not smoke or abuse alcohol. FAMILY HISTORY: Remarkable for cirrhosis in his mother. REVIEW OF SYSTEMS: Unable to be obtained at this time as the patient is very lethargic and difficult to arouse. PHYSICAL EXAMINATION: VITAL SIGNS: Blood pressures 160/117, heart rate is 105 and regular, respirations are 14 and unlabored. The patient is afebrile. GENERAL APPEARANCE: The patient is a chronically ill-appearing obese male, in no acute distress. HEENT: Unremarkable. NECK: Shows no jugular venous distention with good carotid upstroke. CHEST: Remarkable for bilateral coarse rhonchi with some diminished breath sounds at the bases. Consultation Report [facility] [address] [facility] [place]. [address] NAME: MARLENE ZAMORA : 74 STATUS : ADM IN [facility]#: [id number] AGE: 46 ADM/REG DATE : 12/08/16 MR#: [id number] REPORT SERV DATE: 12/08/16 DICTATED BY: JOSIAH LLOYD DATE: 12/08/16 REPORT STATUS : Draft TRANSCRIBED BY: MONA DATE: 12/08/16 CARDIOVASCULAR: PMI is lateral to the midclavicular line. S1 is normal. S2 is narrowly split. No gallop is present. The rate is mildly tachycardic. ABDOMEN: Soft and nontender with positive bowel sounds. EXTREMITIES: Show no cyanosis, clubbing, or edema. SKIN: Warm and dry with no pallor or icterus. NEURO/PSYCH: The patient is very lethargic and somewhat difficult to arouse but does open his eyes and acknowledge when spoken to him. He is not able to participate in any conversation at this time. LABORATORY AND DIAGNOSTIC DATA: EKG from 12/06/2016 at [facility] shows a wide-complex tachycardia which appears to be most consistent with atrial flutter with left bundle-branch block. The rate is 132 beats per minute. EKG from this morning at [facility] shows an irregular tachycardia at 149 beats per minute which also appears to be probable atrial flutter with a left bundle-branch block. There is an interval EKG from 12/07/2016 at [facility] which appears to be sinus tachycardia at a rate of [address]-T changes. The patient's troponin level was 0.19. Other remarkable labs include a very low vitamin D level of 6. Chest x-ray shows cardiomegaly with shallow inspiration and minimal bibasilar atelectasis but is otherwise unremarkable. An echocardiogram done on 10/20/2016 shows left ventricular ejection fraction in the low 50s and no significant valvular dysfunction. This is an improvement from his ejection fraction of 40% to 45%. On his cardiac catheterization in July which also showed no significant coronary artery disease. IMPRESSION: 1. Wide-complex tachycardia which is most likely atrial flutter with a left bundle-branch block. The patient does have a history of chronic left bundle-branch block. 2. Nonischemic cardiomyopathy. 3. Hypertension. 4. End-stage renal disease with recurrent volume overload secondary to stopping dialysis early last week. 5. History of medication noncompliance. PLAN: 1. We will continue amiodarone drip at this time. 2. Add IV Lopressor for blood pressure and rate control and plan to transition him to an oral beta sudha which he should be taking anyway but I believe he stopped this medication previously, although I do not have an accurate home medication list at this time. 3. Continue medical management as per critical care and Nephrology including replacing his electrolytes. Thank you very much for this consultation. We will continue to follow patient with you. EBB/MODL Consultation Report [place] [id number] [facility] [place]. [address] NAME: MARLENE ZAOMRA : 74 STATUS : ADM IN PAT#: [id number] AGE: 46 ADM/REG DATE : 12/08/16 MR#: [id number] REPORT SERV DATE: 12/08/16 DICTATED BY: JOSIAH LLOYD DATE: 12/08/16 REPORT STATUS : Draft TRANSCRIBED BY: MONA DATE: 12/08/16 Josiah Lloyd NP / [id number] CC: DO Rigoberto Gray M.D., F.A.C.C.
[~2016-12-08 02:16] MED LIST changes: +BAYER500 MG PO; +CARD30 PO
[2016-12-08 03:20] LABS: BASOPHILS 0.1 %; BASOPHILS ABSOLUTE 0.01 10/3/uL (0.0-0.16); EOSINOPHILS 1.5 %; EOSINOPHILS ABSOLUTE 0.11 10/3/uL (0.0-0.53); HEMOGLOBIN 8.6 g/dL (13.6-17.8); IMMATURE GRANULOCYTES 0.3 %; IMMATURE GRANULOCYTES ABSOLUTE 0.02 10/3/uL (0.0-0.11); LYMPHOCYTES 20.1 %; LYMPHOCYTES ABSOLUTE 1.52 10/3/uL (0.67-4.30); MEAN CORPUS HGB CONC 29.7 g/dL (32.0-36.0); MEAN CORPUSCULAR HEMOGLOB 25.1 pg (26.0-34.0); MEAN PLATELET VOLUME 11.4 fL (9.2-13.0); MONOCYTES 10.2 %; MONOCYTES ABSOLUTE 0.77 10/3/uL (0.21-1.20); NEUTROPHILS 67.8 %; NEUTROPHILS ABSOLUTE 5.15 10/3/uL (2.02-8.40); RBC DISTRIBUTION WIDTH 17.9 % (12.0-16.0); RED CELL COUNT 3.42 10/6/uL (4.7-6.1)
[2016-12-08 03:21] LABS: MANUAL DIFF NO %; MEAN CORPUSCULAR VOLUME 84.8 fL (80-100); PLATELET COUNT 182 10/3/uL (150-400); WHITE BLOOD CELLS 7.6 10/3/uL (4.5-10.5)
[2016-12-08 03:33] LABS: ALBUMIN 3.4 G/DL (3.5-5.0); CHLORIDE, SERUM 99 MMOL/L (96-112); CO2 (CARBON DIOXIDE) 25 MMOL/L (24-34); GLUCOSE, SERUM 98 MG/DL (60-99); PHOSPHORUS, SERUM 3.9 MG/DL (2.5-4.5); POTASSIUM, SERUM 4.3 MMOL/L (3.5-5.3); SODIUM, SERUM 140 MMOL/L (135-148)
[2016-12-08 03:35] LABS: BUN (BLOOD UREA NITROGEN) 45 MG/DL (6-23); GFR AFRICAN AMERICAN 5 ML/MIN (>=60); GFR NON AFRICAN AMERICAN 5 ML/MIN (>=60); TROPONIN I 0.19 NG/ML (<0.05)
[2016-12-08 05:33] LABS: DIRECT BILIRUBIN 0.2 MG/DL (0.0-0.4); INDIRECT BILIRUBIN(NOT ORDER) 0.5 MG/DL (0.1-0.9); SGOT(AST) 28 U/L (5-40); SGPT(ALT) 21 U/L (5-65); TOTAL BILIRUBIN 0.7 MG/DL (0-1.2); TOTAL PROTEIN 9.1 G/DL (6.0-8.5)
[2016-12-08 05:34] LABS: ALKALINE PHOSPHATASE 188 U/L (45-117)
[2016-12-08 07:33] LABS: INTACT PTH (ICMA) 2278.4 PG/ML (10.0-65.0)
[2016-12-08 09:32] LABS: SALICYLATE 1.9 MG/DL (-)
[2016-12-08 09:33] LABS: ACETAMINOPHEN LEVEL (TYLENOL) < 2.0 MCG/ML (10.0-20.0); ALCOHOL < 10 MG/DL (0)
[2016-12-08] MEDS ORDERED: OXYCOD PO (13:08)
[2016-12-09 04:42] LABS: BASOPHILS 0.4 %; BASOPHILS ABSOLUTE 0.02 10/3/uL (0.0-0.16); EOSINOPHILS 6.6 %; HEMOGLOBIN 9.2 g/dL (13.6-17.8); IMMATURE GRANULOCYTES 0.2 %; IMMATURE GRANULOCYTES ABSOLUTE 0.01 10/3/uL (0.0-0.11); LYMPHOCYTES 23.5 %; LYMPHOCYTES ABSOLUTE 1.07 10/3/uL (0.67-4.30); MEAN CORPUS HGB CONC 28.8 g/dL (32.0-36.0); MEAN CORPUSCULAR HEMOGLOB 25.2 pg (26.0-34.0); MEAN PLATELET VOLUME 11.2 fL (9.2-13.0); MONOCYTES 12.1 %; MONOCYTES ABSOLUTE 0.55 10/3/uL (0.21-1.20); NEUTROPHILS 57.2 %; NEUTROPHILS ABSOLUTE 2.61 10/3/uL (2.02-8.40); PLATELET COUNT 180 10/3/uL (150-400); RBC DISTRIBUTION WIDTH 17.7 % (12.0-16.0); RED CELL COUNT 3.65 10/6/uL (4.7-6.1); WHITE BLOOD CELLS 4.6 10/3/uL (4.5-10.5)
[2016-12-09 04:43] LABS: MANUAL DIFF NO %; MEAN CORPUSCULAR VOLUME 87.7 fL (80-100)
[2016-12-09 05:00] LABS: A/G RATIO 0.6 (0.7-1.9); ALBUMIN 3.4 G/DL (3.5-5.0); CALCIUM, SERUM 7.8 MG/DL (8.5-10.4); CHLORIDE, SERUM 101 MMOL/L (96-112); CO2 (CARBON DIOXIDE) 24 MMOL/L (24-34); GLOBULIN 5.4 G/DL (2.5-4.1); GLUCOSE, SERUM 95 MG/DL (60-99); POTASSIUM, SERUM 4.6 MMOL/L (3.5-5.3); SGOT(AST) 22 U/L (5-40); SGPT(ALT) 15 U/L (5-65); SODIUM, SERUM 137 MMOL/L (135-148); TOTAL BILIRUBIN 0.6 MG/DL (0-1.2); TOTAL PROTEIN 8.8 G/DL (6.0-8.5)
[2016-12-09 05:07] LABS: ALKALINE PHOSPHATASE 171 U/L (45-117); BUN (BLOOD UREA NITROGEN) 32 MG/DL (6-23); CREATININE 8.87 MG/DL (0.70-1.30); GFR AFRICAN AMERICAN 8 ML/MIN (>=60); GFR NON AFRICAN AMERICAN 7 ML/MIN (>=60)
[2016-12-09 05:19] LABS: PLATELET ESTIMATE ADQ (ADEQUATE)
[2016-12-09 05:20] LABS: ANISOCYTOSIS 1+ (5-10/OIF) (0-5/OIF)
[2016-12-10 03:57] LABS: BASOPHILS 0.2 %; BASOPHILS ABSOLUTE 0.01 10/3/uL (0.0-0.16); EOSINOPHILS 5.1 %; EOSINOPHILS ABSOLUTE 0.22 10/3/uL (0.0-0.53); LYMPHOCYTES 28.7 %; LYMPHOCYTES ABSOLUTE 1.23 10/3/uL (0.67-4.30); MEAN CORPUS HGB CONC 29.4 g/dL (32.0-36.0); MEAN CORPUSCULAR HEMOGLOB 25.2 pg (26.0-34.0); MEAN CORPUSCULAR VOLUME 85.7 fL (80-100); MEAN PLATELET VOLUME 11.4 fL (9.2-13.0); MONOCYTES 15.2 %; MONOCYTES ABSOLUTE 0.65 10/3/uL (0.21-1.20); NEUTROPHILS 50.8 %; NEUTROPHILS ABSOLUTE 2.17 10/3/uL (2.02-8.40); PLATELET COUNT 180 10/3/uL (150-400); RBC DISTRIBUTION WIDTH 17.8 % (12.0-16.0); WHITE BLOOD CELLS 4.3 10/3/uL (4.5-10.5)
[2016-12-10 03:58] LABS: HEMATOCRIT 24.5 % (40.0-51.0); HEMOGLOBIN 7.2 g/dL (13.6-17.8); MANUAL DIFF NO %; RED CELL COUNT 2.86 10/6/uL (4.7-6.1)
[2016-12-10 04:17] LABS: CHLORIDE, SERUM 96 MMOL/L (96-112); CO2 (CARBON DIOXIDE) 25 MMOL/L (24-34); FREE T4 1.11 NG/DL (0.76-1.46); GLUCOSE, SERUM 106 MG/DL (60-99); PHOSPHORUS, SERUM 4.6 MG/DL (2.5-4.5); POTASSIUM, SERUM 4.7 MMOL/L (3.5-5.3); SODIUM, SERUM 136 MMOL/L (135-148)
[2016-12-10 04:22] LABS: BUN (BLOOD UREA NITROGEN) 50 MG/DL (6-23); CALCIUM, SERUM 6.7 MG/DL (8.5-10.4); GFR AFRICAN AMERICAN 6 ML/MIN (>=60); GFR NON AFRICAN AMERICAN 6 ML/MIN (>=60)
[2016-12-11 08:39] LABS: BASOPHILS 0.2 %; BASOPHILS ABSOLUTE 0.01 10/3/uL (0.0-0.16); EOSINOPHILS 4.7 %; EOSINOPHILS ABSOLUTE 0.19 10/3/uL (0.0-0.53); HEMATOCRIT 29.5 % (40.0-51.0); HEMOGLOBIN 9.1 g/dL (13.6-17.8); IMMATURE GRANULOCYTES 0.2 %; IMMATURE GRANULOCYTES ABSOLUTE 0.01 10/3/uL (0.0-0.11); LYMPHOCYTES 23.2 %; LYMPHOCYTES ABSOLUTE 0.93 10/3/uL (0.67-4.30); MANUAL DIFF NO %; MEAN CORPUS HGB CONC 30.8 g/dL (32.0-36.0); MEAN CORPUSCULAR HEMOGLOB 26.3 pg (26.0-34.0); MEAN CORPUSCULAR VOLUME 85.3 fL (80-100); MEAN PLATELET VOLUME 11.7 fL (9.2-13.0); MONOCYTES 9.5 %; MONOCYTES ABSOLUTE 0.38 10/3/uL (0.21-1.20); NEUTROPHILS 62.2 %; NEUTROPHILS ABSOLUTE 2.49 10/3/uL (2.02-8.40); PLATELET COUNT 197 10/3/uL (150-400); RBC DISTRIBUTION WIDTH 17.2 % (12.0-16.0); RED CELL COUNT 3.46 10/6/uL (4.7-6.1)
[2016-12-11 08:57] LABS: ALBUMIN 3.1 G/DL (3.5-5.0); BUN (BLOOD UREA NITROGEN) 43 MG/DL (6-23); CALCIUM, SERUM 7.2 MG/DL (8.5-10.4); CHLORIDE, SERUM 96 MMOL/L (96-112); CO2 (CARBON DIOXIDE) 24 MMOL/L (24-34); GFR AFRICAN AMERICAN 9 ML/MIN (>=60); GFR NON AFRICAN AMERICAN 7 ML/MIN (>=60); GLUCOSE, SERUM 84 MG/DL (60-99); PHOSPHORUS, SERUM 3.3 MG/DL (2.5-4.5); POTASSIUM, SERUM 4.5 MMOL/L (3.5-5.3); SODIUM, SERUM 134 MMOL/L (135-148)
[2016-12-12 17:06] LABS: BASOPHILS 0 %; EOSINOPHILS 3.1 %; EOSINOPHILS ABSOLUTE 0.12 10/3/uL (0.0-0.53); HEMATOCRIT 30.3 % (40.0-51.0); HEMOGLOBIN 9.3 g/dL (13.6-17.8); IMMATURE GRANULOCYTES 0.3 %; IMMATURE GRANULOCYTES ABSOLUTE 0.01 10/3/uL (0.0-0.11); LYMPHOCYTES 14.6 %; LYMPHOCYTES ABSOLUTE 0.56 10/3/uL (0.67-4.30); MEAN CORPUS HGB CONC 30.7 g/dL (32.0-36.0); MEAN CORPUSCULAR HEMOGLOB 26.1 pg (26.0-34.0); MEAN CORPUSCULAR VOLUME 85.1 fL (80-100); MEAN PLATELET VOLUME 10.9 fL (9.2-13.0); MONOCYTES ABSOLUTE 0.46 10/3/uL (0.21-1.20); NEUTROPHILS ABSOLUTE 2.68 10/3/uL (2.02-8.40); PLATELET COUNT 178 10/3/uL (150-400); RBC DISTRIBUTION WIDTH 17.2 % (12.0-16.0); RED CELL COUNT 3.56 10/6/uL (4.7-6.1); WHITE BLOOD CELLS 3.8 10/3/uL (4.5-10.5)
[2016-12-12 17:08] LABS: MANUAL DIFF NO %
[2016-12-12 17:27] LABS: ALBUMIN 3.1 G/DL (3.5-5.0); BUN (BLOOD UREA NITROGEN) 36 MG/DL (6-23); CALCIUM, SERUM 7.2 MG/DL (8.5-10.4); CHLORIDE, SERUM 102 MMOL/L (96-112); CO2 (CARBON DIOXIDE) 26 MMOL/L (24-34); CREATININE 6.39 MG/DL (0.70-1.30); GFR AFRICAN AMERICAN 11 ML/MIN (>=60); GFR NON AFRICAN AMERICAN 10 ML/MIN (>=60); GLUCOSE, SERUM 86 MG/DL (60-99); POTASSIUM, SERUM 4.6 MMOL/L (3.5-5.3); SODIUM, SERUM 137 MMOL/L (135-148)
[2016-12-15 08:38] LABS: BASOPHILS 0.5 %; BASOPHILS ABSOLUTE 0.02 10/3/uL (0.0-0.16); EOSINOPHILS 3.4 %; EOSINOPHILS ABSOLUTE 0.15 10/3/uL (0.0-0.53); HEMATOCRIT 31.3 % (40.0-51.0); HEMOGLOBIN 9.5 g/dL (13.6-17.8); LYMPHOCYTES 22.2 %; LYMPHOCYTES ABSOLUTE 0.97 10/3/uL (0.67-4.30); MEAN CORPUS HGB CONC 30.4 g/dL (32.0-36.0); MEAN CORPUSCULAR HEMOGLOB 25.7 pg (26.0-34.0); MEAN CORPUSCULAR VOLUME 84.6 fL (80-100); MEAN PLATELET VOLUME 10.8 fL (9.2-13.0); MONOCYTES 9.2 %; NEUTROPHILS 64.7 %; NEUTROPHILS ABSOLUTE 2.82 10/3/uL (2.02-8.40); PLATELET COUNT 223 10/3/uL (150-400); WHITE BLOOD CELLS 4.4 10/3/uL (4.5-10.5)
[2016-12-15 08:39] LABS: MANUAL DIFF NO %
[2016-12-15 08:49] LABS: ALBUMIN 3.2 G/DL (3.5-5.0); CHLORIDE, SERUM 95 MMOL/L (96-112); CO2 (CARBON DIOXIDE) 24 MMOL/L (24-34); GLUCOSE, SERUM 85 MG/DL (60-99); SODIUM, SERUM 131 MMOL/L (135-148)
[2016-12-15 08:50] LABS: BUN (BLOOD UREA NITROGEN) 84 MG/DL (6-23); CALCIUM, SERUM 8.4 MG/DL (8.5-10.4); CREATININE 9.92 MG/DL (0.70-1.30); GFR AFRICAN AMERICAN 7 ML/MIN (>=60); GFR NON AFRICAN AMERICAN 6 ML/MIN (>=60); PHOSPHORUS, SERUM 4.5 MG/DL (2.5-4.5); POTASSIUM, SERUM 6.2 MMOL/L (3.5-5.3)
[2016-12-16 09:01] LABS: BASOPHILS 0.3 %; BASOPHILS ABSOLUTE 0.01 10/3/uL (0.0-0.16); EOSINOPHILS 4.4 %; EOSINOPHILS ABSOLUTE 0.16 10/3/uL (0.0-0.53); HEMATOCRIT 30.9 % (40.0-51.0); HEMOGLOBIN 9.4 g/dL (13.6-17.8); IMMATURE GRANULOCYTES 0.3 %; IMMATURE GRANULOCYTES ABSOLUTE 0.01 10/3/uL (0.0-0.11); LYMPHOCYTES ABSOLUTE 1.01 10/3/uL (0.67-4.30); MEAN CORPUS HGB CONC 30.4 g/dL (32.0-36.0); MEAN CORPUSCULAR HEMOGLOB 25.4 pg (26.0-34.0); MEAN CORPUSCULAR VOLUME 83.5 fL (80-100); MEAN PLATELET VOLUME 10.4 fL (9.2-13.0); MONOCYTES 10.5 %; MONOCYTES ABSOLUTE 0.38 10/3/uL (0.21-1.20); NEUTROPHILS 56.5 %; NEUTROPHILS ABSOLUTE 2.04 10/3/uL (2.02-8.40); PLATELET COUNT 221 10/3/uL (150-400); WHITE BLOOD CELLS 3.6 10/3/uL (4.5-10.5)
[2016-12-16 09:05] LABS: MANUAL DIFF NO %
[2016-12-16 09:14] LABS: ALBUMIN 3.2 G/DL (3.5-5.0); BUN (BLOOD UREA NITROGEN) 67 MG/DL (6-23); CALCIUM, SERUM 8.4 MG/DL (8.5-10.4); CHLORIDE, SERUM 98 MMOL/L (96-112); CO2 (CARBON DIOXIDE) 24 MMOL/L (24-34); CREATININE 8.36 MG/DL (0.70-1.30); GFR AFRICAN AMERICAN 8 ML/MIN (>=60); GFR NON AFRICAN AMERICAN 7 ML/MIN (>=60); GLUCOSE, SERUM 96 MG/DL (60-99); PHOSPHORUS, SERUM 3.8 MG/DL (2.5-4.5); POTASSIUM, SERUM 5.1 MMOL/L (3.5-5.3); SODIUM, SERUM 133 MMOL/L (135-148)
[2016-12-16] MEDS ORDERED: COREG12 PO (12:52)
[2016-12-16] MEDS ORDERED: CORDARONE PO (12:52)
[2016-12-16] MEDS ORDERED: PERCOCET 10/3251 TAB PO (13:05)
[2017-02-02] MEDS ORDERED: COREG12 PO (21:50)
[2017-02-02] MEDS ORDERED: PACERONE200 MG PO (21:50)
[2017-02-02] MEDS ORDERED: TUMSROLL PO (21:52)
[2017-02-02] MEDS ORDERED: PERCOCET 10/3251 TAB PO (21:52)
[2017-02-04] MEDS ORDERED: ASA5GR PO (17:17)
[2017-02-04] MEDS ORDERED: LIPITOR40 PO (17:17)
[2017-02-04] MEDS ORDERED: PEP20 PO (17:17)
[2017-02-04] MEDS ORDERED: VENTOLIN HFA INH (17:20)
[2017-03-22] MEDS ORDERED: PROAIR HFA INH (18:04)
[2017-05-10] MEDS ORDERED: TUMSROLL PO (11:37)
[2017-05-10] MEDS ORDERED: COREG3 PO (11:37)
[2017-05-10] MEDS ORDERED: ASA5GR PO (11:37)
== END 2016-12-16 15:26 | disposition home or self-care (01) | DRG 308 ==
LOC: MIC 02:16 → 6NO 12-10 16:05
PROVIDERS: Internal Medicine Critical Care Medicine; Internal Medicine Nephrology; Internal Medicine Pulmonary Disease
PROC: 5A1D60Z (ICD-10-PCS; principal; 2016-12-08)
PROC: 02HV33Z Insertion of Infusion Device into Superior Vena Cava, Percutaneous Approach (ICD-10-PCS; 2016-12-08)
PROC: 4A02X4A Measurement of Cardiac Electrical Activity, Guidance, External Approach (ICD-10-PCS; 2016-12-08)
PROC: 30233N1 Transfusion of Nonautologous Red Blood Cells into Peripheral Vein, Percutaneous Approach (ICD-10-PCS; 2016-12-10)
DX: I48.92 Unspecified atrial flutter (principal); N18.6 End stage renal disease; I12.0 Hypertensive chronic kidney disease with stage 5 chronic kidney disease or end stage renal disease; I42.9 Cardiomyopathy, unspecified; I50.22 Chronic systolic (congestive) heart failure; E87.70 Fluid overload, unspecified; I48.0 Paroxysmal atrial fibrillation; Z99.2 Dependence on renal dialysis; Z91.15 Patient's noncompliance with renal dialysis; G47.33 Obstructive sleep apnea (adult) (pediatric); E03.9 Hypothyroidism, unspecified; E66.9 Obesity, unspecified; F14.90 Cocaine use, unspecified, uncomplicated; I44.7 Left bundle-branch block, unspecified; E83.51 Hypocalcemia; Z86.14 Personal history of Methicillin resistant Staphylococcus aureus infection; Z68.34 Body mass index [BMI] 34.0-34.9, adult; D64.9 Anemia, unspecified
CPT/HCPCS: 36415; 36569; 36600; 71010; 80048; 80053; 80069; 80076; 80307; 82306; 82330; 82803; 82947; 83735; 83970; 84100; 84132; 84295; 84439; 84443; 84484; 85014; 85025; 86850; 86900; 86901; 86920; 87641; 93005; A9270-GY; C1751; C8924; G0257; J0282; J0885; P9016; P9047; Q9957

== ENCOUNTER 2016-12-20 08:31 | Inpatient (IN) | payer MEDICARE, OTHER ==
--- NOTE | ~2016-12-20 | DS ---
Discharge Summary [facility] [address] [place]. [address] NAME: MARLENE ZAMORA : 74 STATUS : DIS IN PAT#: [id number] AGE: 46 ADM/REG DATE : 12/22/16 MR#: [id number] REPORT SERV DATE: 01/06/17 DICTATED BY: GABBI SANDRA DATE: 01/06/17 REPORT STATUS : Draft TRANSCRIBED BY: MODAnt DATE: 01/06/17 Data Collection from hospitalization DISCHARGE DIAGNOSES: 1. Methicillin-resistant Staphylococcus aureus bacteremia. 2. End-stage renal disease. 3. History of left upper extremity access infection with abscess and rupture. 4. Diabetes mellitus. 5. Hypertension. 6. Nonischemic cardiomyopathy - ejection fraction 30. 7. Obstructive sleep apnea. 8. Anemia. 9. Hypothyroidism. 10.History of peptic ulcer disease. 11.Remote history of cocaine use. CONSULTATIONS: 1. Lex Regalado M.D. 2. Rigoberto Dejesus M.D., Ph.D, F.A.C.C. PROCEDURES PERFORMED: 1. Transthoracic echocardiography on 12/24/2016. 2. Transesophageal echocardiogram on 12/25/2016. MEDICATIONS: Cordarone 400 mg twice a day, Tums 500 mg with meals, Coreg 12.5 mg twice a day, Percocet 10/325 one tablet three times a day as needed, Marina Back and Body one tablet twice a day as needed, and vancomycin as instructed. CONDITION AT DISCHARGE: Stable. DISPOSITION: The patient was discharged home on a renal diet with 1.5 liter fluid restriction and activities as instructed. He would follow up for hemodialysis Thursday following discharge. HOSPITAL COURSE: This is a 46-year-old man who chronically dialyzes on Mondays, Wednesdays, and Fridays via a right IJ PermCath. Apparently, he cut his time on Thursday prior to this admission by two hours and went to [employer]. He presented to the emergency room at [facility] with what was felt to be ventricular tachycardia and was actually shocked. His labs confirmed persistent hypocalcemia and he was hypertensive. He was initiated on a nitroglycerin drip. He was subsequently transferred to [facility]. He was maintained on a Venturi mask and apparently received 6 g of calcium gluconate at [facility]. He was also given an amp of sodium bicarb as well as one dose of IV Cardizem. He had blood pressure systolics in excess of 220 upon arrival, nitroglycerin drip was adjusted for control. He was started on dialysis for emergent volume removal. He was admitted to the hospital for further evaluation and treatment. Upon admission, the patient seemed to be feeling better. Creatinine level was 5.81. He was in no acute distress. He said he was feeling better. On 12/22/2016, he became a full Discharge Summary [address] [place]. [address] NAME: MARLENE ZAMORA : 74 STATUS : DIS IN PAT#: [id number] AGE: 46 ADM/REG DATE : 12/22/16 MR#: [id number] REPORT SERV DATE: 01/06/17 DICTATED BY: GABBI SANDRA DATE: 01/06/17 REPORT STATUS : Draft TRANSCRIBED BY: MONA DATE: 01/06/17 admit. Hemodialysis therapy was performed. He was seen in consultation by Dr. Lex Regalado. The patient had recent MRSA sepsis. It was felt that the patient should undergo a transthoracic echocardiogram, and if this was negative, a transesophageal echocardiogram. The following day, he was requesting more to eat. He wanted to go home. He had no shortness of breath. He was afebrile. He was feeling better. Repeat blood cultures were negative. Vancomycin was continued. White count was 4.3. On 12/24/2016, he had no new symptoms. He remained afebrile. His lungs were clear. The left upper extremity was warm. There was no evidence of infection. A transthoracic echocardiography was performed, this was a limited echocardiogram for vegetation assessment only. There was moderately decreased left ventricular systolic function with estimated ejection fraction of 30%. There was more focal anteroseptal hypocontractility. There was normal right ventricular chamber size with mildly decreased systolic function. There were small mobile subvalvular mitral echodensities, which likely represent redundant cords. There was a small nonmobile echodensity extending from the aortic valve likely representing degenerative changes or Lambl's excrescences. Hemodialysis therapy was performed. The patient was seen by Dr. Rigoberto Dejesus. He had recently undergone cardiac catheterization. He had recently had MRSA. Transesophageal echocardiogram was requested. An echocardiogram was performed. On 12/25/2016, he had no new symptoms. Blood cultures remained negative. Transesophageal echocardiogram was performed by Dr. Samuel Reese to rule out endocarditis. There was no definitive evidence of endocarditis. He has moderate decreased left ventricular function with ejection fraction 30%. There was mild decreased right ventricular function. There was no clear evidence of vegetation and normal functioning valves. He was wanting to go home. The next day, he did have some shortness of breath. Discharge planning was performed. He had no new complaints. Hemodialysis therapy continued. Antibiotics were continued. He was up sitting in a chair. He was in a normal sinus rhythm with left bundle-branch block - first degree AV block. His current medical management continued. On 12/27/2016, he had no new complaints. He was alert and cooperative. Discharge instructions were given. Due to his improved and stable condition, he was discharged home with the above-stated instructions. Information collected by: Rashmi Gambino I submit the above information as my discharge summary. TG/MODL Gabbi Sandra M.D. / [id number] CC: Colt Potts M.D. Rigoberto Dejesus M.D., Ph.D, F.A.C.C. Lex Regalado M.D.
--- NOTE | ~2016-12-20 | OP ---
Record Of Operation [facility] [address] [place]. [address] NAME: MARLENE ZAMORA : 74 STATUS : ADM IN PAT#: [id number] AGE: 46 ADM/REG DATE : 12/22/16 MR#: [id number] REPORT SERV DATE: 12/25/16 DICTATED BY: SAMUEL PRESTON DATE: 12/25/16 REPORT STATUS : Draft TRANSCRIBED BY: MODL DATE: 12/25/16 DATE OF PROCEDURE: 12/25/2016 REASON FOR PROCEDURE: Rule out endocarditis. PROCEDURE DESCRIPTION: All questions were answered and informed consent was obtained. ANESTHESIA: Administered sedation. DESCRIPTION OF PROCEDURE: Upon successful sedation, the transesophageal probe was inserted without complication. Salient echocardiographic windows were obtained, with particular attention to the valve structures. Findings are summarized below. Upon completion of the procedure, the transesophageal probe was withdrawn without an issue. There were no complications from the procedure. The patient was recovered by Anesthesia. ECHOCARDIOGRAPHIC FINDINGS: 1. Moderately decreased left ventricular systolic function with an estimated ejection fraction of about 30%. 2. Mild right ventricular enlargement with mildly decreased systolic function. 3. Moderate right atrial enlargement, with swelling of the interatrial septum to the left consistent with increased right atrial pressures. 4. Morphologically, normal tricuspid, mitral, and aortic valves. The pulmonic valve was not well visualized. 5. Small linear mobile echo densities in tandem with cardiac phase, most likely representing redundant mitral course. There is no clearly independent mobile lesion noted on the mitral apparatus/subvalvular apparatus. 6. Thin linear filamentous structure extending from the aortic valve leaflets into the LVOT, consistent with Lambl's excrescences (normal variant). 7. No definitive evidence of endocarditis. VR/MODL Samuel Preston MD / [id number] CC: Andres Sandra M.D.
[2016-12-20 08:29] LABS: BASOPHILS 0.1 %; BASOPHILS ABSOLUTE 0.01 10/3/uL (0.0-0.16); EOSINOPHILS 1.4 %; HEMATOCRIT 33.5 % (40.0-51.0); HEMOGLOBIN 10.1 g/dL (13.6-17.8); IMMATURE GRANULOCYTES 0.3 %; IMMATURE GRANULOCYTES ABSOLUTE 0.02 10/3/uL (0.0-0.11); LYMPHOCYTES 14.3 %; LYMPHOCYTES ABSOLUTE 0.99 10/3/uL (0.67-4.30); MEAN CORPUS HGB CONC 30.1 g/dL (32.0-36.0); MEAN CORPUSCULAR HEMOGLOB 25.6 pg (26.0-34.0); MEAN PLATELET VOLUME 10.8 fL (9.2-13.0); MONOCYTES 13.3 %; MONOCYTES ABSOLUTE 0.92 10/3/uL (0.21-1.20); NEUTROPHILS 70.6 %; NEUTROPHILS ABSOLUTE 4.87 10/3/uL (2.02-8.40); PLATELET COUNT 184 10/3/uL (150-400); RBC DISTRIBUTION WIDTH 16.8 % (12.0-16.0); RED CELL COUNT 3.94 10/6/uL (4.7-6.1)
[2016-12-20 08:30] LABS: ER CBC TAT 0 Hrs 09 Mins; MANUAL DIFF NO %; WHITE BLOOD CELLS 6.9 10/3/uL (4.5-10.5)
[~2016-12-20 08:31] MED LIST changes: +CORDARONE PO; +COREG12 PO; +OXYCOD PO; +PERCOCET 10/3251 TAB PO
[2016-12-20 08:40] LABS: INTERNATIONAL NORMAL RATI 1.4 UNITS (-); PARTIAL THROMBO TIME 38.6 SEC (22.5-37.2); PROTIME (NOT ORD) 16.7 SEC (12.0-14.5)
[2016-12-20 08:43] LABS: A/G RATIO 0.5 (0.7-1.9); ALBUMIN 3.4 G/DL (3.5-5.0); ALKALINE PHOSPHATASE 216 U/L (45-117); BUN (BLOOD UREA NITROGEN) 23 MG/DL (6-23); CALCIUM, SERUM 8.2 MG/DL (8.5-10.4); CHLORIDE, SERUM 99 MMOL/L (96-112); CO2 (CARBON DIOXIDE) 29 MMOL/L (24-34); CREATININE 5.81 MG/DL (0.70-1.30); GFR AFRICAN AMERICAN 13 ML/MIN (>=60); GFR NON AFRICAN AMERICAN 11 ML/MIN (>=60); GLOBULIN 6.2 G/DL (2.5-4.1); GLUCOSE, SERUM 93 MG/DL (60-99); SGOT(AST) 35 U/L (5-40); SGPT(ALT) 23 U/L (5-65); SODIUM, SERUM 136 MMOL/L (135-148); TOTAL BILIRUBIN 0.9 MG/DL (0-1.2); TOTAL PROTEIN 9.6 G/DL (6.0-8.5)
[2016-12-20 08:45] LABS: LACTATE 1.2 MMOL/L (0.3-2.4)
[2016-12-20 08:51] LABS: HYPOCHROMIA 1+ (3-10/OIF) (0-2/OIF); PLATELET ESTIMATE ADQ (ADEQUATE)
[2016-12-20] MEDS ORDERED: BAYER BACK AND BODY PO (09:27)
[2016-12-20 09:47] LABS: PROCALCITONIN 0.88 ng/mL (<0.5)
[2016-12-20 09:47] LABS: INFLUENZA A SCREEN NEGATIVE (NEGATIVE); INFLUENZA B SCREEN NEGATIVE (NEGATIVE)
[2016-12-20 17:09] LABS: CPK 589 U/L (0-200)
[2016-12-20 17:10] LABS: TROPONIN I 0.12 NG/ML (<0.05)
[2016-12-20 20:28] LABS: CK-MB 8.8 NG/ML
[2016-12-20 20:29] LABS: CKMB INDEX (NOT ORD) 1.7
[2016-12-20 20:30] LABS: TROPONIN I 0.13 NG/ML (<0.05)
[2016-12-21 08:53] LABS: BASOPHILS 0.2 %; BASOPHILS ABSOLUTE 0.01 10/3/uL (0.0-0.16); EOSINOPHILS 3.6 %; EOSINOPHILS ABSOLUTE 0.21 10/3/uL (0.0-0.53); HEMATOCRIT 30.2 % (40.0-51.0); HEMOGLOBIN 8.9 g/dL (13.6-17.8); IMMATURE GRANULOCYTES 0.2 %; IMMATURE GRANULOCYTES ABSOLUTE 0.01 10/3/uL (0.0-0.11); LYMPHOCYTES 13.8 %; MEAN CORPUS HGB CONC 29.5 g/dL (32.0-36.0); MEAN CORPUSCULAR HEMOGLOB 25.1 pg (26.0-34.0); MEAN CORPUSCULAR VOLUME 85.3 fL (80-100); MEAN PLATELET VOLUME 9.8 fL (9.2-13.0); MONOCYTES 13.8 %; NEUTROPHILS 68.4 %; NEUTROPHILS ABSOLUTE 3.95 10/3/uL (2.02-8.40); PLATELET COUNT 144 10/3/uL (150-400); RBC DISTRIBUTION WIDTH 17.1 % (12.0-16.0); RED CELL COUNT 3.54 10/6/uL (4.7-6.1); WHITE BLOOD CELLS 5.8 10/3/uL (4.5-10.5)
[2016-12-21 09:01] LABS: MANUAL DIFF NO %
[2016-12-21 09:07] LABS: ALBUMIN 3.2 G/DL (3.5-5.0); BUN (BLOOD UREA NITROGEN) 25 MG/DL (6-23); CHLORIDE, SERUM 101 MMOL/L (96-112); CK-MB 6.9 NG/ML; CO2 (CARBON DIOXIDE) 28 MMOL/L (24-34); CPK 319 U/L (0-200); CREATININE 5.67 MG/DL (0.70-1.30); GFR AFRICAN AMERICAN 13 ML/MIN (>=60); GFR NON AFRICAN AMERICAN 11 ML/MIN (>=60); GLUCOSE, SERUM 93 MG/DL (60-99); PHOSPHORUS, SERUM 3.2 MG/DL (2.5-4.5); POTASSIUM, SERUM 4.5 MMOL/L (3.5-5.3); SODIUM, SERUM 137 MMOL/L (135-148)
[2016-12-21 09:09] LABS: CKMB INDEX (NOT ORD) 2.2; TROPONIN I 0.08 NG/ML (<0.05)
[2016-12-21 17:24] LABS: CK-MB 10.6 NG/ML
[2016-12-21 17:25] LABS: CKMB INDEX (NOT ORD) 2.7; TROPONIN I 0.07 NG/ML (<0.05)
[2016-12-22 09:47] LABS: BASOPHILS 0.2 %; BASOPHILS ABSOLUTE 0.01 10/3/uL (0.0-0.16); EOSINOPHILS ABSOLUTE 0.22 10/3/uL (0.0-0.53); HEMATOCRIT 29.1 % (40.0-51.0); HEMOGLOBIN 8.8 g/dL (13.6-17.8); IMMATURE GRANULOCYTES 0.2 %; IMMATURE GRANULOCYTES ABSOLUTE 0.01 10/3/uL (0.0-0.11); LYMPHOCYTES 19.4 %; LYMPHOCYTES ABSOLUTE 1.06 10/3/uL (0.67-4.30); MEAN CORPUS HGB CONC 30.2 g/dL (32.0-36.0); MEAN CORPUSCULAR HEMOGLOB 25.4 pg (26.0-34.0); MEAN CORPUSCULAR VOLUME 83.9 fL (80-100); MEAN PLATELET VOLUME 9.8 fL (9.2-13.0); MONOCYTES 11.5 %; MONOCYTES ABSOLUTE 0.63 10/3/uL (0.21-1.20); NEUTROPHILS 64.7 %; NEUTROPHILS ABSOLUTE 3.54 10/3/uL (2.02-8.40); PLATELET COUNT 137 10/3/uL (150-400); RBC DISTRIBUTION WIDTH 17.1 % (12.0-16.0); RED CELL COUNT 3.47 10/6/uL (4.7-6.1); WHITE BLOOD CELLS 5.5 10/3/uL (4.5-10.5)
[2016-12-22 09:48] LABS: MANUAL DIFF NO %
[2016-12-22 09:53] LABS: ALBUMIN 3.1 G/DL (3.5-5.0); BUN (BLOOD UREA NITROGEN) 42 MG/DL (6-23); CHLORIDE, SERUM 98 MMOL/L (96-112); CO2 (CARBON DIOXIDE) 27 MMOL/L (24-34); GFR AFRICAN AMERICAN 9 ML/MIN (>=60); GFR NON AFRICAN AMERICAN 8 ML/MIN (>=60); GLUCOSE, SERUM 80 MG/DL (60-99); PHOSPHORUS, SERUM 3.6 MG/DL (2.5-4.5); POTASSIUM, SERUM 4.7 MMOL/L (3.5-5.3); SODIUM, SERUM 133 MMOL/L (135-148)
[2016-12-22 10:05] LABS: ANISOCYTOSIS 1+ (5-10/OIF) (0-5/OIF); PLATELET ESTIMATE SLT DEC (ADEQUATE)
[2016-12-23 11:04] LABS: BASOPHILS 0.2 %; BASOPHILS ABSOLUTE 0.01 10/3/uL (0.0-0.16); EOSINOPHILS ABSOLUTE 0.17 10/3/uL (0.0-0.53); HEMATOCRIT 31.4 % (40.0-51.0); HEMOGLOBIN 9.3 g/dL (13.6-17.8); LYMPHOCYTES 24.3 %; LYMPHOCYTES ABSOLUTE 1.04 10/3/uL (0.67-4.30); MANUAL DIFF NO %; MEAN CORPUS HGB CONC 29.6 g/dL (32.0-36.0); MEAN CORPUSCULAR HEMOGLOB 25.3 pg (26.0-34.0); MEAN CORPUSCULAR VOLUME 85.6 fL (80-100); MONOCYTES 12.6 %; MONOCYTES ABSOLUTE 0.54 10/3/uL (0.21-1.20); NEUTROPHILS 58.9 %; NEUTROPHILS ABSOLUTE 2.52 10/3/uL (2.02-8.40); PLATELET COUNT 172 10/3/uL (150-400); RBC DISTRIBUTION WIDTH 17.1 % (12.0-16.0); RED CELL COUNT 3.67 10/6/uL (4.7-6.1); WHITE BLOOD CELLS 4.3 10/3/uL (4.5-10.5)
[2016-12-23 11:18] LABS: ALBUMIN 3.2 G/DL (3.5-5.0); BUN (BLOOD UREA NITROGEN) 42 MG/DL (6-23); CALCIUM, SERUM 8.5 MG/DL (8.5-10.4); CHLORIDE, SERUM 97 MMOL/L (96-112); CO2 (CARBON DIOXIDE) 28 MMOL/L (24-34); CREATININE 6.99 MG/DL (0.70-1.30); GFR AFRICAN AMERICAN 10 ML/MIN (>=60); GFR NON AFRICAN AMERICAN 9 ML/MIN (>=60); GLUCOSE, SERUM 91 MG/DL (60-99); PHOSPHORUS, SERUM 3.5 MG/DL (2.5-4.5); POTASSIUM, SERUM 4.7 MMOL/L (3.5-5.3); SODIUM, SERUM 133 MMOL/L (135-148)
[2016-12-24 14:16] LABS: BASOPHILS 0.4 %; BASOPHILS ABSOLUTE 0.02 10/3/uL (0.0-0.16); EOSINOPHILS 4.1 %; EOSINOPHILS ABSOLUTE 0.19 10/3/uL (0.0-0.53); HEMATOCRIT 28.9 % (40.0-51.0); HEMOGLOBIN 8.8 g/dL (13.6-17.8); IMMATURE GRANULOCYTES 0.2 %; IMMATURE GRANULOCYTES ABSOLUTE 0.01 10/3/uL (0.0-0.11); LYMPHOCYTES 24.3 %; LYMPHOCYTES ABSOLUTE 1.13 10/3/uL (0.67-4.30); MEAN CORPUS HGB CONC 30.4 g/dL (32.0-36.0); MEAN CORPUSCULAR HEMOGLOB 25.2 pg (26.0-34.0); MEAN PLATELET VOLUME 10.2 fL (9.2-13.0); MONOCYTES ABSOLUTE 0.42 10/3/uL (0.21-1.20); NEUTROPHILS ABSOLUTE 2.88 10/3/uL (2.02-8.40); PLATELET COUNT 192 10/3/uL (150-400); RBC DISTRIBUTION WIDTH 17.1 % (12.0-16.0); RED CELL COUNT 3.49 10/6/uL (4.7-6.1); WHITE BLOOD CELLS 4.7 10/3/uL (4.5-10.5)
[2016-12-24 14:17] LABS: MANUAL DIFF NO %; MEAN CORPUSCULAR VOLUME 82.8 fL (80-100)
[2016-12-24 14:28] LABS: ALBUMIN 3.3 G/DL (3.5-5.0); CALCIUM, SERUM 8.3 MG/DL (8.5-10.4); CHLORIDE, SERUM 99 MMOL/L (96-112); CO2 (CARBON DIOXIDE) 27 MMOL/L (24-34); GFR AFRICAN AMERICAN 8 ML/MIN (>=60); GFR NON AFRICAN AMERICAN 7 ML/MIN (>=60); GLUCOSE, SERUM 88 MG/DL (60-99); PHOSPHORUS, SERUM 3.9 MG/DL (2.5-4.5); POTASSIUM, SERUM 5.2 MMOL/L (3.5-5.3); SODIUM, SERUM 134 MMOL/L (135-148)
[2016-12-24 14:29] LABS: BUN (BLOOD UREA NITROGEN) 63 MG/DL (6-23); CREATININE 8.85 MG/DL (0.70-1.30)
[2016-12-25 12:36] LABS: BASOPHILS 0.4 %; BASOPHILS ABSOLUTE 0.02 10/3/uL (0.0-0.16); EOSINOPHILS 3.6 %; EOSINOPHILS ABSOLUTE 0.16 10/3/uL (0.0-0.53); HEMATOCRIT 30.5 % (40.0-51.0); IMMATURE GRANULOCYTES 0.2 %; IMMATURE GRANULOCYTES ABSOLUTE 0.01 10/3/uL (0.0-0.11); LYMPHOCYTES 23.4 %; LYMPHOCYTES ABSOLUTE 1.05 10/3/uL (0.67-4.30); MANUAL DIFF NO %; MEAN CORPUS HGB CONC 29.5 g/dL (32.0-36.0); MEAN CORPUSCULAR HEMOGLOB 25.1 pg (26.0-34.0); MEAN PLATELET VOLUME 10.4 fL (9.2-13.0); MONOCYTES 10.7 %; MONOCYTES ABSOLUTE 0.48 10/3/uL (0.21-1.20); NEUTROPHILS 61.7 %; NEUTROPHILS ABSOLUTE 2.76 10/3/uL (2.02-8.40); PLATELET COUNT 188 10/3/uL (150-400); RBC DISTRIBUTION WIDTH 17.3 % (12.0-16.0); RED CELL COUNT 3.59 10/6/uL (4.7-6.1); WHITE BLOOD CELLS 4.5 10/3/uL (4.5-10.5)
[2016-12-25 12:49] LABS: ALBUMIN 3.1 G/DL (3.5-5.0); BUN (BLOOD UREA NITROGEN) 52 MG/DL (6-23); CALCIUM, SERUM 8.5 MG/DL (8.5-10.4); CHLORIDE, SERUM 101 MMOL/L (96-112); CO2 (CARBON DIOXIDE) 24 MMOL/L (24-34); CREATININE 7.16 MG/DL (0.70-1.30); GFR AFRICAN AMERICAN 10 ML/MIN (>=60); GFR NON AFRICAN AMERICAN 8 ML/MIN (>=60); GLUCOSE, SERUM 84 MG/DL (60-99); PHOSPHORUS, SERUM 3.8 MG/DL (2.5-4.5); POTASSIUM, SERUM 5.9 MMOL/L (3.5-5.3); SODIUM, SERUM 132 MMOL/L (135-148)
[2016-12-25 13:32] LABS: PLATELET ESTIMATE ADQ (ADEQUATE)
[2016-12-25 13:34] LABS: HYPOCHROMIA 1+ (3-10/OIF) (0-2/OIF)
[2016-12-26 10:49] LABS: BASOPHILS 0.2 %; BASOPHILS ABSOLUTE 0.01 10/3/uL (0.0-0.16); EOSINOPHILS 3.6 %; EOSINOPHILS ABSOLUTE 0.17 10/3/uL (0.0-0.53); HEMOGLOBIN 9.4 g/dL (13.6-17.8); IMMATURE GRANULOCYTES 0.2 %; IMMATURE GRANULOCYTES ABSOLUTE 0.01 10/3/uL (0.0-0.11); LYMPHOCYTES 20.4 %; LYMPHOCYTES ABSOLUTE 0.96 10/3/uL (0.67-4.30); MEAN CORPUS HGB CONC 29.4 g/dL (32.0-36.0); MEAN CORPUSCULAR HEMOGLOB 24.6 pg (26.0-34.0); MEAN CORPUSCULAR VOLUME 83.8 fL (80-100); MEAN PLATELET VOLUME 9.8 fL (9.2-13.0); MONOCYTES 8.9 %; MONOCYTES ABSOLUTE 0.42 10/3/uL (0.21-1.20); NEUTROPHILS 66.7 %; NEUTROPHILS ABSOLUTE 3.14 10/3/uL (2.02-8.40); PLATELET COUNT 206 10/3/uL (150-400); RBC DISTRIBUTION WIDTH 17.4 % (12.0-16.0); RED CELL COUNT 3.82 10/6/uL (4.7-6.1); WHITE BLOOD CELLS 4.7 10/3/uL (4.5-10.5)
[2016-12-26 10:51] LABS: MANUAL DIFF NO %
[2016-12-26 11:03] LABS: ALBUMIN 3.5 G/DL (3.5-5.0); CALCIUM, SERUM 8.1 MG/DL (8.5-10.4); CHLORIDE, SERUM 100 MMOL/L (96-112); CO2 (CARBON DIOXIDE) 25 MMOL/L (24-34); GFR AFRICAN AMERICAN 8 ML/MIN (>=60); GFR NON AFRICAN AMERICAN 7 ML/MIN (>=60); GLUCOSE, SERUM 92 MG/DL (60-99); PHOSPHORUS, SERUM 3.8 MG/DL (2.5-4.5); POTASSIUM, SERUM 5.6 MMOL/L (3.5-5.3); SODIUM, SERUM 135 MMOL/L (135-148)
[2016-12-26 11:04] LABS: BUN (BLOOD UREA NITROGEN) 66 MG/DL (6-23)
[2016-12-27 06:44] LABS: BASOPHILS 0.2 %; BASOPHILS ABSOLUTE 0.01 10/3/uL (0.0-0.16); EOSINOPHILS 4.6 %; EOSINOPHILS ABSOLUTE 0.19 10/3/uL (0.0-0.53); HEMATOCRIT 30.3 % (40.0-51.0); LYMPHOCYTES 23.4 %; LYMPHOCYTES ABSOLUTE 0.97 10/3/uL (0.67-4.30); MEAN CORPUS HGB CONC 29.7 g/dL (32.0-36.0); MEAN CORPUSCULAR HEMOGLOB 25.1 pg (26.0-34.0); MEAN CORPUSCULAR VOLUME 84.6 fL (80-100); MEAN PLATELET VOLUME 9.6 fL (9.2-13.0); MONOCYTES 11.6 %; MONOCYTES ABSOLUTE 0.48 10/3/uL (0.21-1.20); NEUTROPHILS 60.2 %; NEUTROPHILS ABSOLUTE 2.49 10/3/uL (2.02-8.40); PLATELET COUNT 195 10/3/uL (150-400); RBC DISTRIBUTION WIDTH 17.5 % (12.0-16.0); RED CELL COUNT 3.58 10/6/uL (4.7-6.1); WHITE BLOOD CELLS 4.1 10/3/uL (4.5-10.5)
[2016-12-27 06:47] LABS: MANUAL DIFF NO %
[2016-12-27 06:48] LABS: ALBUMIN 3.2 G/DL (3.5-5.0); CALCIUM, SERUM 7.9 MG/DL (8.5-10.4); CHLORIDE, SERUM 104 MMOL/L (96-112); CO2 (CARBON DIOXIDE) 25 MMOL/L (24-34); GFR AFRICAN AMERICAN 11 ML/MIN (>=60); GFR NON AFRICAN AMERICAN 10 ML/MIN (>=60); GLUCOSE, SERUM 86 MG/DL (60-99); PHOSPHORUS, SERUM 3.1 MG/DL (2.5-4.5); SODIUM, SERUM 137 MMOL/L (135-148)
[2016-12-27 06:53] LABS: BUN (BLOOD UREA NITROGEN) 46 MG/DL (6-23); CREATININE 6.45 MG/DL (0.70-1.30)
[2016-12-27] MEDS ORDERED: VANCO500 IV (12:06)
[2017-02-02] MEDS ORDERED: PACERONE200 MG PO (21:50)
[2017-02-02] MEDS ORDERED: COREG12 PO (21:50)
[2017-02-02] MEDS ORDERED: TUMSROLL PO (21:52)
[2017-02-02] MEDS ORDERED: PERCOCET 10/3251 TAB PO (21:52)
[2017-02-04] MEDS ORDERED: LIPITOR40 PO (17:17)
[2017-02-04] MEDS ORDERED: ASA5GR PO (17:17)
[2017-02-04] MEDS ORDERED: PEP20 PO (17:17)
[2017-02-04] MEDS ORDERED: VENTOLIN HFA INH (17:20)
[2017-03-22] MEDS ORDERED: PROAIR HFA INH (18:04)
[2017-05-10] MEDS ORDERED: TUMSROLL PO (11:37)
[2017-05-10] MEDS ORDERED: COREG3 PO (11:37)
[2017-05-10] MEDS ORDERED: ASA5GR PO (11:37)
== END 2016-12-27 13:35 | disposition home or self-care (01) | DRG 867 ==
LOC: ER 08:31 → CDU1 09:07 → 2SO 12-22 12:47 → SDC/OF 12-25 15:07 → 2SO 12-25 15:08
PROVIDERS: Hospitalist; Internal Medicine Nephrology; Nurse Practitioner
PROC: 5A1D60Z (ICD-10-PCS; 2016-12-22)
PROC: B246ZZ4 Ultrasonography of Right and Left Heart, Transesophageal (ICD-10-PCS; principal; 2016-12-25)
DX: A49.02 Methicillin resistant Staphylococcus aureus infection, unspecified site (principal); N18.6 End stage renal disease; I13.2 Hypertensive heart and chronic kidney disease with heart failure and with stage 5 chronic kidney disease, or end stage renal disease; I24.8 Other forms of acute ischemic heart disease; I42.9 Cardiomyopathy, unspecified; E11.22 Type 2 diabetes mellitus with diabetic chronic kidney disease; I50.42 Chronic combined systolic (congestive) and diastolic (congestive) heart failure; E87.70 Fluid overload, unspecified; I48.2 Chronic atrial fibrillation; I36.1 Nonrheumatic tricuspid (valve) insufficiency; I34.0 Nonrheumatic mitral (valve) insufficiency; G47.33 Obstructive sleep apnea (adult) (pediatric); I48.91 Unspecified atrial fibrillation; I44.7 Left bundle-branch block, unspecified; H54.8 Legal blindness, as defined in USA; I73.9 Peripheral vascular disease, unspecified; I25.10 Atherosclerotic heart disease of native coronary artery without angina pectoris; E78.5 Hyperlipidemia, unspecified; R00.0 Tachycardia, unspecified; Z99.2 Dependence on renal dialysis; Z99.81 Dependence on supplemental oxygen; Z86.73 Personal history of transient ischemic attack (TIA), and cerebral infarction without residual deficits; Z91.14 Patient's other noncompliance with medication regimen
CPT/HCPCS: 71010; 76376; 80053; 80069; 80202; 82550; 82553; 83605; 83735; 84145; 84484; 85025; 85610; 85730; 87040; 87077; 87150; 87186; 87804; 93005; 93307; 93312; 93320; 93325; 94640; 96374; 96375; 99291; A9270-GY; C8923; G0257; J2543; J3370; P9047

== ENCOUNTER 2017-01-04 19:59 | Inpatient (IN) | payer MEDICARE, OTHER ==
--- NOTE | ~2017-01-04 | HP ---
History And Physical [id number] [facility] [place]. [address] NAME: MARLENE ZAMORA : 74 STATUS : ADM IN [facility]#: [id number] AGE: 46 ADM/REG DATE : 01/04/17 MR#: [id number] REPORT SERV DATE: 01/05/17 DICTATED BY: TO QIU DATE: 01/05/17 REPORT STATUS : Draft TRANSCRIBED BY: MODL DATE: 01/05/17 DATE OF ADMISSION: 01/04/2017 CHIEF COMPLAINT: Shortness of breath. HISTORY OF PRESENT ILLNESS: This is a 46-year-old gentleman who chronically [facility] [address] Perm[address], his left upper arm AV graft having become infected, ruptured and failed at some point. He presented to the emergency department last night with one-day history of progressive dyspnea on exertion, orthopnea and chest discomfort. He was found to have evidence of volume overload with body weight elevated above dry weight and also modest hyponatremia. A chest x-ray was obtained, which confirmed suspicion of overload with obvious dependent infiltrates and congestive changes. He is seen in hemodialysis this morning where he is having 5 L ultrafiltration. He already feels subjectively better. On admission, he had systolic blood pressures in the 190s to 200s mmHg. He was started on Cardene infusion and admitted to the MICU. PAST MEDICAL HISTORY: 1. End-stage renal disease. 2. Hemodialysis Thursday, Thursday, and Thursday via right IJ tunneled catheter, [facility] [address]. 3. Atrial fibrillation. 4. Chronic hypertension. 5. Nonischemic cardiomyopathy with recent left ventricular ejection fraction 30% in 11/2016. He had negative cardiac catheterization in 07/2016. 6. Obstructive sleep apnea. 7. Hypothyroidism. 8. Hypocalcemia, which followed parathyroidectomy, that has not recurred recently. 9. History of peptic ulcer disease. 10.Recent MRSA staph aureus bacteremia following left knee bursitis. Vancomycin infusion after dialysis was planned through 01/17/2017. 11.History of arthroscopic debridement and irrigation, left upper extremity. 12.Left upper extremity access infection, abscess rupture and failure. 13.History of cocaine abuse remotely. He indicates no recent drug abuse. HOME MEDICATIONS: Amiodarone, calcium carbonate, carvedilol, oxycodone/APAP, Marina aspirin twice daily, vancomycin 500 mg IV subsequent to each hemodialysis treatment planned through 01/17/2017. ALLERGIES: LISTED ARE THE FOLLOWING. 1. LISINOPRIL, WHICH CAUSED A RASH AND COUGH. 2. VENOM WASP HAS CAUSED ANAPHYLAXIS FROM BEE STING. 3. CRAYFISH CAUSED RASHES. 4. LORAZEPAM CAUSED ADVERSE REACTION OF HALLUCINATIONS. 5. HYDROCHLOROTHIAZIDE CAUSED STOMACH CRAMPS. 6. HYDROMORPHONE FROM DILAUDID CAUSE NAUSEA AND VOMITING. 7. COLLAGENASE FROM SANTYL CAUSED FREEMAN ON HEALTHY SKIN. History And Physical [address] [place]. [address] NAME: MARLENE ZAMORA : 74 STATUS : ADM IN [facility]#: [id number] AGE: 46 ADM/REG DATE : 01/04/17 MR#: [id number] REPORT SERV DATE: 01/05/17 DICTATED BY: TO QIU DATE: 01/05/17 REPORT STATUS : Draft TRANSCRIBED BY: MONA DATE: 01/05/17 SOCIAL HISTORY: He is and lives with his . He has previous history of incarceration, but none recently. He does not abuse alcohol, tobacco or any illicit substances. He has used cocaine in the past. He has, within the past year, significant history of noncompliance with hemodialysis prescription and also medication prescriptions. FAMILY HISTORY: Mother from cirrhosis. REVIEW OF SYSTEMS: GENERAL: No fevers or chills. GI: Denies nausea, vomiting, or diarrhea. CARDIOVASCULAR: Had some chest tightness when he arrived, but that has resolved with dialysis and also control of blood pressure. : No complaints. RESPIRATORY: Cough productive of clear sputum, concurrent with his dyspnea. All other review of systems negative or noncontributory. PHYSICAL EXAMINATION: VITAL SIGNS: Temperature 97.2, blood pressure 111/67, prior to dialysis when he was receiving Cardene infusion in the ICU, heart rate 80 beats per minute, respiratory rate 15 breaths per minute. GENERAL: Chronically ill appearing, but well-developed, well-nourished, gentleman, appears his stated age. He is alert, lucid, oriented fully and in no distress. HEENT: Normocephalic, atraumatic. External ears and nose normal. Sinuses nontender. Oropharynx, mucous membranes moist to pale, free of any ulcerations or exudates. Eye exam was conjunctivae, free of any hemorrhages or exudates. Sclerae anicteric. Extraocular motor function is intact. NECK: Easily movable without any palpable masses or nodules. No meningismus. Trachea midline. LYMPHATIC: Anterior-posterior neck, supraclavicular, axillary and abdominal regions were free of lymphadenopathy. RESPIRATORY: Presently efforts are nonlabored, but he has an infrequent cough that is wet sounding. Clear sputum is produced. Auscultation reveals bibasilar crackles. CARDIOVASCULAR: Heart sounds distant. Regular rate and rhythm is appreciated without any extra sounds. Minimal dependent edema. ABDOMEN: Protuberant, but nontender. Positive bowel sounds noted throughout. No guarding. No palpable masses. No evidence of fluid wave on percussion. SKIN: He has had chronic scarring changes to bilateral lower extremities. No rashes or other discoloration noted. Skin turgor is within normal limits. STUDIES: Chest x-ray, bibasilar infiltrates with congestive vascular changes consistent with volume overload and central CHF exacerbation from overload. Chemistry: Sodium 134, potassium 6.1, chloride 102, CO2 of 21, BUN 56, creatinine 11, glucose 147, phosphorus 3, albumin 3.5, B-type natriuretic peptide 2291. CBC: White cell count 6.4, hemoglobin 10.6, hematocrit 35.2, platelets 176. ABG, pH 7.45, PaCO2 of 33, PaO2 of 56, bicarbonate 22.3, O2 saturation 88%. History And Physical [address] [address] NAME: MARLENE ZAMORA : 74 STATUS : ADM IN [facility]#: [id number] AGE: 46 ADM/REG DATE : 01/04/17 MR#: [id number] REPORT SERV DATE: 01/05/17 DICTATED BY: TO QIU DATE: 01/05/17 REPORT STATUS : Draft TRANSCRIBED BY: MONA DATE: 01/05/17 IMPRESSION: 1. Volume overload with central congestion and consequent dyspnea and hypoxemia. He gives evidence of 5 kg overload and will be ultrafiltrated for 5 kg on dialysis today. 2. Hypertensive exacerbation, easily controlled with low intensity Cardene infusion. This is likely attributable to volume overload. He should easily wean off Cardene on dialysis today. 3. Severe medical and dialysis noncompliance. 4. Recent MRSA bacteremia with planned vancomycin infusions through 01/17. Unknown recent vancomycin trough. 5. Anemia of chronic kidney disease. 6. Hyperkalemia secondary to dietary noncompliance. 7. Chronic dialysis catheter patient for now as he has had a recent failure of left upper arm AV fistula with infections related to that. It will be awhile longer before he can be evaluated by the surgeons for new AV access. PLAN: 1. ICU admission, initially with Cardene infusion, which hopefully can be weaned off after dialysis and aggressive ultrafiltration today. 2. Resume home medications. 3. Resume vancomycin. 4. Renal diet. 5. If we wean him off the Cardene infusion, I can transfer him to the floor today. GEETA/MONA To Qiu M.D. / [id number] CC: Colt Alan M.D.
--- NOTE | ~2017-01-04 | DS ---
Discharge Summary [facility] [address] [place]. [address] NAME: MARLENE ZAMORA : 74 STATUS : DIS IN PAT#: [id number] AGE: 46 ADM/REG DATE : 01/04/17 MR#: [id number] REPORT SERV DATE: 01/17/17 DICTATED BY: KORIN BOYLE DATE: 01/16/17 REPORT STATUS : Draft TRANSCRIBED BY: MODAnt DATE: 01/16/17 Data Collection from hospitalization DISCHARGE DIAGNOSES: 1. Hypertension - urgency. 2. Volume overload. 3. End-stage renal disease. 4. Recent bacteremia. 5. Noncompliance with hemodialysis. 6. Cardiomyopathy - ejection fraction 35%. CONSULTATIONS: None. PROCEDURES PERFORMED: None. MEDICATIONS: ProAir one puff via inhaler every six hours as needed, Cordarone 400 mg twice a day, Tums 500 mg with meals, Coreg 12.5 mg twice a day, Percocet 10/325 one tablet three times a day as needed, Marina Back and Body one tablet twice a day as needed, and vancomycin as instructed. CONDITION AT DISCHARGE: Stable. DISPOSITION: The patient was discharged home on a renal diet with 1 liter fluid restriction and activities as instructed. He would follow up for hemodialysis on 01/09/2017. HOSPITAL COURSE: This is a 46-year-old man who chronically dial[facility] [address] via a right IJ PermCath. The left upper arm AV graft had become infected and ruptured and failed at some point. He presented to the emergency room with a one-day history of progressive dyspnea on exertion, orthopnea, and chest discomfort. He was found to have evidence of volume overload with body weight elevated above dry weight and also modest hyponatremia. Chest x-ray confirmed suspicion of overload with obvious dependent infiltrates and congestive changes. He was seen in hemodialysis on the morning of this admission where he was having 5 liters of ultrafiltration. He said he already felt subjectively better. On admission, he has systolic blood pressures in the 190s to 200 mmHg. He was started on Cardene infusion and admitted to the MICU for further evaluation and treatment. Upon admission, chest x-ray revealed bibasilar infiltrates with congestive vascular changes consistent with volume overload and central congestive heart failure exacerbation from overload. He was felt to have hypertensive exacerbation, which would be easily controlled with low-intensity Cardene infusion. This was likely attributable to volume overload. He should easily wean off Cardene on dialysis. The patient has a history of severe medical and dialysis noncompliance. He had a recent MRSA bacteremia with planned vancomycin infusions through 01/17/2017. He has hyperkalemia secondary to dietary noncompliance. He has anemia of chronic kidney disease. Home medications were going to be resumed as well as vancomycin. He was going to be placed on a renal diet. If we could wean him off the Cardene infusion, we would transfer him to the floor. The following day, he said he had some trouble taking a deep breath. He did have some coughing. He was now off Cardene. Albuterol nebulizers were Discharge Summary [address] [address] NAME: MARLENE ZAMORAHAN : 74 STATUS : DIS IN PAT#: [id number] AGE: 46 ADM/REG DATE : 01/04/17 MR#: [id number] REPORT SERV DATE: 01/17/17 DICTATED BY: KORIN BOYLE DATE: 01/16/17 REPORT STATUS : Draft TRANSCRIBED BY: MONA DATE: 01/16/17 being provided. He was on fluid restriction and sodium restriction. The next day, hemodialysis therapy was performed. He seemed to be feeling better. He was not coughing as much. Discharge planning was performed. On 01/08/2017, he said he was feeling better. His nausea and vomiting had improved. He was alert and cooperative. Discharge instructions were given. Due to his improved and stable condition, he was discharged home with the above stated instructions. Information collected by: Rashmi Gambino I submit the above information as my discharge summary. KAEL/MODL Korin Boyle M.D. / [id number] CC: Colt Alan M.D.
[2017-01-04 19:52] LABS: INTERNATIONAL NORMAL RATI 1.3 UNITS (-)
[2017-01-04 19:54] LABS: BASOPHILS 0.5 %; BASOPHILS ABSOLUTE 0.03 10/3/uL (0.0-0.16); EOSINOPHILS 2.8 %; EOSINOPHILS ABSOLUTE 0.18 10/3/uL (0.0-0.53); HEMOGLOBIN 10.6 g/dL (13.6-17.8); IMMATURE GRANULOCYTES 0.2 %; IMMATURE GRANULOCYTES ABSOLUTE 0.01 10/3/uL (0.0-0.11); LYMPHOCYTES 23.2 %; LYMPHOCYTES ABSOLUTE 1.49 10/3/uL (0.67-4.30); MEAN CORPUS HGB CONC 30.1 g/dL (32.0-36.0); MEAN CORPUSCULAR HEMOGLOB 24.9 pg (26.0-34.0); MEAN CORPUSCULAR VOLUME 82.6 fL (80-100); MEAN PLATELET VOLUME 10.5 fL (9.2-13.0); MONOCYTES 9.5 %; MONOCYTES ABSOLUTE 0.61 10/3/uL (0.21-1.20); NEUTROPHILS 63.8 %; NEUTROPHILS ABSOLUTE 4.09 10/3/uL (2.02-8.40); PLATELET COUNT 170 10/3/uL (150-400); RBC DISTRIBUTION WIDTH 17.9 % (12.0-16.0); RED CELL COUNT 4.26 10/6/uL (4.7-6.1)
[2017-01-04 19:57] LABS: ER CBC TAT 0 Hrs 12 Mins; HEMATOCRIT 35.2 % (40.0-51.0); WHITE BLOOD CELLS 6.4 10/3/uL (4.5-10.5)
[2017-01-04 19:58] LABS: MANUAL DIFF NO %
[~2017-01-04 19:59] MED LIST changes: +BAYER BACK AND BODY PO; +VANCO500 IV
[2017-01-04 20:02] LABS: BUN (BLOOD UREA NITROGEN) 54 MG/DL (6-23); CALCIUM, SERUM 8.8 MG/DL (8.5-10.4); CHLORIDE, SERUM 100 MMOL/L (96-112); CO2 (CARBON DIOXIDE) 29 MMOL/L (24-34); GFR AFRICAN AMERICAN 6 ML/MIN (>=60); GFR NON AFRICAN AMERICAN 5 ML/MIN (>=60); GLUCOSE, SERUM 87 MG/DL (60-99); POTASSIUM, SERUM 4.8 MMOL/L (3.5-5.3); SODIUM, SERUM 136 MMOL/L (135-148)
[2017-01-04 20:03] LABS: CHEST PAIN PROFILE TAT 0 Hrs 28 Mins; TROPONIN I 0.11 NG/ML (<0.05)
[2017-01-04 20:05] LABS: PLATELET ESTIMATE ADQ (ADEQUATE)
[2017-01-04 20:06] LABS: ANISOCYTOSIS 1+ (5-10/OIF) (0-5/OIF)
[2017-01-05 01:20] LABS: ALLENS TEST Pos; BE (BASE EXCESS) -1.1 MEQ/L (0 +/- 2.5); CARBOXYHEMOGLOBIN 1.9 % (0-3); DEVICE NC; HCO3 (ACTUAL BICARBONATE) 22.3 MEQ/L (23-27); HEMOBLOGIN CONTENT 11.5 G/DL (14-18); INSTRUMENT SERIAL # 8083; METHEMOGLOBIN 0.3 % (0-3); OPERATOR ID 13415; PCO2 (CO2 TENSION) 33 MMHG (35-45); PO2 (O2 TENSION) 56 MMHG (79-93); SAMPLE Arterial; pH 7.45 (7.37-7.43)
[2017-01-05 04:36] LABS: ALBUMIN 3.5 G/DL (3.5-5.0); BUN (BLOOD UREA NITROGEN) 56 MG/DL (6-23); CALCIUM, SERUM 8.6 MG/DL (8.5-10.4); CHLORIDE, SERUM 102 MMOL/L (96-112); CPK (IF ELEVATED MB BANDS) 421 U/L (0-200); GFR AFRICAN AMERICAN 6 ML/MIN (>=60); GFR NON AFRICAN AMERICAN 5 ML/MIN (>=60); SODIUM, SERUM 134 MMOL/L (135-148)
[2017-01-05 04:40] LABS: CO2 (CARBON DIOXIDE) 21 MMOL/L (24-34); GLUCOSE, SERUM 147 MG/DL (60-99); POTASSIUM, SERUM 6.1 MMOL/L (3.5-5.3); TROPONIN I 0.07 NG/ML (<0.05)
[2017-01-05 05:11] LABS: CK-MB 13.2 NG/ML
[2017-01-05 05:13] LABS: CKMB INDEX (NOT ORD) 3.1
[2017-01-06 04:32] LABS: BASOPHILS 0.2 %; BASOPHILS ABSOLUTE 0.01 10/3/uL (0.0-0.16); EOSINOPHILS 0 %; HEMATOCRIT 32.9 % (40.0-51.0); HEMOGLOBIN 9.7 g/dL (13.6-17.8); IMMATURE GRANULOCYTES 0.2 %; IMMATURE GRANULOCYTES ABSOLUTE 0.01 10/3/uL (0.0-0.11); LYMPHOCYTES 18.7 %; LYMPHOCYTES ABSOLUTE 0.87 10/3/uL (0.67-4.30); MEAN CORPUS HGB CONC 29.5 g/dL (32.0-36.0); MEAN CORPUSCULAR VOLUME 84.8 fL (80-100); MONOCYTES 9.2 %; MONOCYTES ABSOLUTE 0.43 10/3/uL (0.21-1.20); NEUTROPHILS 71.7 %; NEUTROPHILS ABSOLUTE 3.34 10/3/uL (2.02-8.40); PLATELET COUNT 176 10/3/uL (150-400); RBC DISTRIBUTION WIDTH 17.6 % (12.0-16.0); RED CELL COUNT 3.88 10/6/uL (4.7-6.1); WHITE BLOOD CELLS 4.7 10/3/uL (4.5-10.5)
[2017-01-06 04:34] LABS: MANUAL DIFF NO %
[2017-01-06 04:47] LABS: ALBUMIN 3.3 G/DL (3.5-5.0); CALCIUM, SERUM 8.3 MG/DL (8.5-10.4); CHLORIDE, SERUM 101 MMOL/L (96-112); PHOSPHORUS, SERUM 3.1 MG/DL (2.5-4.5); POTASSIUM, SERUM 4.9 MMOL/L (3.5-5.3); SODIUM, SERUM 137 MMOL/L (135-148)
[2017-01-06 04:49] LABS: BUN (BLOOD UREA NITROGEN) 50 MG/DL (6-23); CO2 (CARBON DIOXIDE) 26 MMOL/L (24-34); CREATININE 8.78 MG/DL (0.70-1.30); GFR AFRICAN AMERICAN 8 ML/MIN (>=60); GFR NON AFRICAN AMERICAN 7 ML/MIN (>=60); GLUCOSE, SERUM 105 MG/DL (60-99)
[2017-01-06 04:53] LABS: ANISOCYTOSIS 1+ (5-10/OIF) (0-5/OIF); PLATELET ESTIMATE ADQ (ADEQUATE)
[2017-01-06 04:54] LABS: MICROCYTES 1+ (5-10/OIF) (0-5/OIF)
[2017-01-07 08:06] LABS: BASOPHILS 0.5 %; BASOPHILS ABSOLUTE 0.02 10/3/uL (0.0-0.16); EOSINOPHILS 3.1 %; EOSINOPHILS ABSOLUTE 0.13 10/3/uL (0.0-0.53); HEMATOCRIT 31.2 % (40.0-51.0); HEMOGLOBIN 9.3 g/dL (13.6-17.8); IMMATURE GRANULOCYTES 0.2 %; IMMATURE GRANULOCYTES ABSOLUTE 0.01 10/3/uL (0.0-0.11); LYMPHOCYTES 32.5 %; LYMPHOCYTES ABSOLUTE 1.37 10/3/uL (0.67-4.30); MEAN CORPUS HGB CONC 29.8 g/dL (32.0-36.0); MEAN CORPUSCULAR HEMOGLOB 24.5 pg (26.0-34.0); MEAN CORPUSCULAR VOLUME 82.3 fL (80-100); MEAN PLATELET VOLUME 10.9 fL (9.2-13.0); MONOCYTES 11.2 %; MONOCYTES ABSOLUTE 0.47 10/3/uL (0.21-1.20); NEUTROPHILS 52.5 %; NEUTROPHILS ABSOLUTE 2.21 10/3/uL (2.02-8.40); PLATELET COUNT 182 10/3/uL (150-400); RBC DISTRIBUTION WIDTH 17.8 % (12.0-16.0); RED CELL COUNT 3.79 10/6/uL (4.7-6.1); WHITE BLOOD CELLS 4.2 10/3/uL (4.5-10.5)
[2017-01-07 08:08] LABS: MANUAL DIFF NO %
[2017-01-07 08:23] LABS: PLATELET ESTIMATE ADQ (ADEQUATE)
[2017-01-07 08:36] LABS: ALBUMIN 3.3 G/DL (3.5-5.0); CALCIUM, SERUM 7.5 MG/DL (8.5-10.4); CHLORIDE, SERUM 99 MMOL/L (96-112); CO2 (CARBON DIOXIDE) 25 MMOL/L (24-34); PHOSPHORUS, SERUM 3.2 MG/DL (2.5-4.5); POTASSIUM, SERUM 4.9 MMOL/L (3.5-5.3); SODIUM, SERUM 136 MMOL/L (135-148)
[2017-01-07 08:37] LABS: BUN (BLOOD UREA NITROGEN) 77 MG/DL (6-23); GFR AFRICAN AMERICAN 6 ML/MIN (>=60); GFR NON AFRICAN AMERICAN 5 ML/MIN (>=60); GLUCOSE, SERUM 83 MG/DL (60-99)
[2017-01-08] MEDS ORDERED: PROAIR HFA INH (13:55)
[2017-02-02] MEDS ORDERED: PACERONE200 MG PO (21:50)
[2017-02-02] MEDS ORDERED: COREG12 PO (21:50)
[2017-02-02] MEDS ORDERED: TUMSROLL PO (21:52)
[2017-02-02] MEDS ORDERED: PERCOCET 10/3251 TAB PO (21:52)
[2017-02-04] MEDS ORDERED: PEP20 PO (17:17)
[2017-02-04] MEDS ORDERED: LIPITOR40 PO (17:17)
[2017-02-04] MEDS ORDERED: ASA5GR PO (17:17)
[2017-02-04] MEDS ORDERED: VENTOLIN HFA INH (17:20)
[2017-03-22] MEDS ORDERED: PROAIR HFA INH (18:04)
[2017-05-10] MEDS ORDERED: ASA5GR PO (11:37)
[2017-05-10] MEDS ORDERED: TUMSROLL PO (11:37)
[2017-05-10] MEDS ORDERED: COREG3 PO (11:37)
== END 2017-01-08 17:40 | disposition home or self-care (01) | DRG 291 ==
LOC: ER 19:59 → MIC 22:37 → 2SO 01-06 20:32
PROVIDERS: Emergency Medicine; Internal Medicine Nephrology
PROC: 5A1D60Z (ICD-10-PCS; principal; 2017-01-05)
DX: I13.2 Hypertensive heart and chronic kidney disease with heart failure and with stage 5 chronic kidney disease, or end stage renal disease (principal); J96.01 Acute respiratory failure with hypoxia; N18.6 End stage renal disease; I50.23 Acute on chronic systolic (congestive) heart failure; I42.8 Other cardiomyopathies; E83.51 Hypocalcemia; E87.70 Fluid overload, unspecified; E87.5 Hyperkalemia; I16.0 Hypertensive urgency; I48.2 Chronic atrial fibrillation; E03.9 Hypothyroidism, unspecified; Z99.2 Dependence on renal dialysis; Z87.11 Personal history of peptic ulcer disease; Z86.14 Personal history of Methicillin resistant Staphylococcus aureus infection; Z79.899 Other long term (current) drug therapy; Z79.82 Long term (current) use of aspirin; Z88.8 Allergy status to other drugs, medicaments and biological substances; Z91.013 Allergy to seafood; Z91.030 Bee allergy status; Z91.15 Patient's noncompliance with renal dialysis; Z91.14 Patient's other noncompliance with medication regimen; Z68.32 Body mass index [BMI] 32.0-32.9, adult
CPT/HCPCS: 36600; 71010; 71020; 80048; 80069; 80202; 82550; 82553; 82805; 83735; 83880; 84484; 85025; 85610; 85730; 87641; 93005; 94640; 96374; 96375; 99291; A9270-GY; G0257; J0360; J2930; J3370